=== PATIENT | female | born 1945 | race Caucasian/White ===

== ENCOUNTER 2016-12-28 11:21 | Inpatient (IN) ==
[2016-12-28] MEDS ORDERED: FUROSEMIDE 100 MG/10 ML VIAL IV STA (11:45)
[2016-12-28] MEDS ORDERED: ONDANSETRON 4 MG/2 ML VIAL IM STA (11:45)
[2016-12-28] MEDS ORDERED: ONDANSETRON 4 MG/2 ML VIAL IV STA (11:52)
[2016-12-28] MEDS ORDERED: FUROSEMIDE 40 MG/4 ML VIAL ONE (11:52)
[2016-12-28] MEDS ORDERED: ONDANSETRON 4 MG/2 ML VIAL ONE (11:52)
--- NOTE | 2016-12-28 11:56 | EKG Report ---
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
--- NOTE | 2016-12-28 12:21 | XRay Report ---
Portable chest Date:[12/28/2016] Clinical history: Shortness of breath Comparison: 02/11/2011 Technique: Portable AP sitting chest Findings: The heart remains normal in size with large hiatal hernia. Progressive diffuse parenchymal findings at the lung bases. Degenerative changes are noted. Impression: Large hiatal hernia with progressive atelectasis/infiltration/edema at the lung bases. PROCEDURE INTERPRETED AT [facility] DEPARTMENT OF RADIOLOGY Final Report Signed by: Dr. Mellissa Puente
[2016-12-28 12:23] LABS: Basophils % 0.4 % (0.0-0.8); Eosinophils # 0.2 10*3/uL (0.0-0.87); Hematocrit 41.6 VOL% (35.7-47.0); Hemoglobin 14.6 GM/DL (12.0-16.0); Immature Granulocytes % 0.3 %; Immature Granulocytes Absolute 0.02 #; Lymphocytes # 1.8 10*3/uL (1.4-4.0); Lymphocytes % 26.4 % (21.3-54.2); Mean Corpuscular HGB Conc 35.1 GM/DL (32-36); Mean Corpuscular Hemoglobin 31 PG (27-34); Mean Corpuscular Volume 86.8 FL (87-102); Mean Platelet Volume 10.7 FL (9.6-12.0); Monocytes # 0.6 10*3/uL (0.11-0.8); Monocytes % 9.3 % (1.7-12.7); Neutrophils # 4.1 10*3/uL (1.4-7.4); Neutrophils % 60.6 % (38.7-73.9); Platelet Count 308 T/CUMM (130-400); Red Blood Count 4.79 MC/CUMM (3.8-5.5); White Blood Count 6.8 T/CUMM (4-12)
--- NOTE | 2016-12-28 12:32 | Emergency Department Note ---
IRashida Kasabria, am scribing for, and in the presence of, Diego Hendrix MD 11:53. Simeon Chapman Robert M, MD, personally performed the services described in this documentation, ascribed by Arie Field in my presence, and it is both accurate and complete 232 . Arrival - Arrival Chief Complaint: Shortness of Breath ED Nursing Triage Note: Brought in per EMS from home with c/o shortness of breath onset last pm. +dyspnea on exertion. +productive cough with "foamy white " sputum, gagging and vomiting. Unable to lie flat. Also c/o upper back pain, "from shoulder blade to shoulder blade". Denies injury. Mode of Arrival: Stretcher Limitations: No Limitations Source: Patient Time Seen by Provider: 12/28/16 11:45 - History of Present Illness HPI Narrative: Pt is a 71 y/o white female presenting to the ED with c/o upper back pain from "shoulder blade to shoulder blade", shortness of breath, productive cough with frothy white sputum, and vomiting that onset this morning at 0100. Pt called it a "spell". She did not call EMS until later this morning when the spell ended. She then states the spell began again with vomiting frothy white "bubbles". Pt took two OTC Tylenol. She denies fever, chills, diarrhea, abdominal pain, vision change, MORELAND, dysuria, chest pain. Her PMHx consist of CHF, HTN, and vertigo. Date of Last Menstrual Period: PM Allergies/Adverse Reactions: Allergies Allergy/AdvReac Type Severity Reaction Status Date / Time Iodinated Contrast Media - Allergy Severe ANAPHYLAXIS Verified 12/28/16 14:34 IV Dye codeine Allergy Unknown/Unable Verified 12/28/16 11:32 to obtain iodine Allergy Unknown/Unable Verified 12/28/16 11:32 to obtain Penicillins Allergy Unknown/Unable Verified 12/28/16 11:32 to obtain Home Medications: Home Medications Medication Instructions Recorded Confirmed Type Furosemide Tab [Lasix Tab] 20 mg PO MOWEFR 12/28/16 12/28/16 History Meclizine HCl 25 mg PO TID PRN 12/28/16 12/28/16 History Metoprolol Succinate 25 mg PO BID 12/28/16 12/28/16 History amLODIPine [Norvasc] 5 mg PO QAM 12/28/16 12/28/16 History hydroCHLOROthiazide 25 mg PO DAILY 12/28/16 12/28/16 History [Hydrochlorothiazide] Review of System - Review of System 12 point system: reviewed and no additional remarkable complaints except as stated - Review of System Constitutional: Absent: chills, fever, weakness Eyes: Absent: vision change Head/Ears/Nose/Throat: Absent: nasal drainage Respiratory: Present: cough (frothy sputum ). Absent: wheezing Cardiovascular: Present: dyspnea on exertion. Absent: chest pain, syncope Gastrointestinal: Present: nausea, vomiting. Absent: abdominal pain, diarrhea Genitourinary female: Absent: dysuria Musculoskeletal: Present: upper back pain (pain from right shoulder blade to left shoulder blade ). Absent: arm pain, back pain, neck pain Skin: Absent: rash Neurological: Absent: headache, weakness, numbness, confusion, abnormal gait, vertigo Psychiatric: Absent: anxiety Endocrine: Absent: fatigue Hematological/Lymphatic: Absent: easy bleeding Allergic/Immunologic: Absent: facial swelling Medical,Surgical,& Family Hx - Medical History Cardio: History of: CHF, Hypertension Neurology: History of: Vertigo - Social History Smoking Status: Never smoker Frequency of Alcohol Use: None Type of Drug Use: None Exam Vital Signs: Vital Signs Temperature 96.3 F L 12/28/16 11:21 Pulse Rate 74 12/28/16 12:15 Respiratory Rate 18 12/28/16 12:15 Blood Pressure 120/67 12/28/16 12:15 O2 Sat by Pulse Oximetry 96 12/28/16 12:15 - General General appearance: alert, in no apparent distress, appears intoxicated - Head Head exam: Present: atraumatic, normocephalic, normal inspection - Eye Eye exam: Present: normal appearance, PERRL, EOMI - ENT ENT exam: Present: normal exam, normal oropharynx, mucous membranes moist, TM's normal bilaterally, normal external ear exam - Neck Neck exam: Present: normal inspection, full ROM, trachea midline. Absent: tenderness - Chest Chest inspection: Present: normal inspection, symmetric chest wall rise. Absent : tenderness - Respiratory Respiratory exam: Present: rhonchi (bilaterally to lung field ). Absent: normal lung sounds bilaterally, accessory muscle use, rales, wheezes - Cardiovascular Cardiovascular exam: Present: regular rate, normal rhythm, normal heart sounds - Abdominal Exam Abdominal exam: Present: soft, normal bowel sounds. Absent: distention, tenderness - Extremities Exam Extremities exam: Present: normal inspection, full ROM, normal capillary refill. Absent: tenderness, pedal edema, calf tenderness - Back Exam Back exam: Present: normal inspection, full ROM. Absent: tenderness - Neurological Exam Neurological exam: Present: alert, oriented X3, CN II-XII intact, normal gait, reflexes normal. Absent: motor sensory deficit - Psychiatric Psychiatric exam: Present: normal affect, normal mood - Skin Skin exam: Present: warm, dry, intact, normal color. Absent: rash Course - Reevaluation(s) Reevaluation #1: Patient told me apparently she hasn't had an esophageal stricture in the past. She had been drinking liquids only for the last several days but last night had a solid meal which preceded the onset of symptoms. She is still able to swallow her spit but occasionally coughs up frothy sputum. Time: 16:49 - Consultations Consultation #1: I went to put the patient in the hospital to Dr. Carrington Esquivel. Dr. Vy Mercer manager application. Time: 16:56 Results - Labs CBC & BMP: 12/28/16 12:00 12/28/16 12:00 Lab Results: I have reviewed the patients labs Labs: Lab Results WBC 6.8 T/CUMM (4-12) 12/28/16 12:00 RBC 4.79 MC/CUMM (3.8-5.5) 12/28/16 12:00 Hgb 14.6 GM/DL (12.0-16.0) 12/28/16 12:00 Hct 41.6 VOL% (35.7-47.0) 12/28/16 12:00 MCV 86.8 FL (87-102) L 12/28/16 12:00 MCH 31 PG (27-34) 12/28/16 12:00 MCHC 35.1 GM/DL (32-36) 12/28/16 12:00 RDW 12.0 % (9.3-17.3) 12/28/16 12:00 Plt Count 308 T/CUMM (130-400) 12/28/16 12:00 MPV 10.7 FL (9.6-12.0) 12/28/16 12:00 Neut % (Auto) 60.6 % (38.7-73.9) 12/28/16 12:00 Lymph % (Auto) 26.4 % (21.3-54.2) 12/28/16 12:00 Orange % (Auto) 9.3 % (1.7-12.7) 12/28/16 12:00 Eos % (Auto) 3.0 % (0.00-10.9) 12/28/16 12:00 Baso % (Auto) 0.4 % (0.0-0.8) 12/28/16 12:00 Neut # (Auto) 4.1 10*3/uL (1.4-7.4) 12/28/16 12:00 Lymph # (Auto) 1.8 10*3/uL (1.4-4.0) 12/28/16 12:00 Orange # (Auto) 0.6 10*3/uL (0.11-0.8) 12/28/16 12:00 Eos # (Auto) 0.2 10*3/uL (0.0-0.87) 12/28/16 12:00 Baso # (Auto) 0.0 10*3/uL (0.0-0.2) 12/28/16 12:00 Immature Gran % 0.3 % 12/28/16 12:00 Nucleated RBC % 0.0 /100WBC 12/28/16 12:00 Immature Gran # 0.02 # 12/28/16 12:00 Nucleated RBCs # 0.00 10*3/uL 12/28/16 12:00 INR 1.0 12/28/16 12:00 PT Patient/Control Mix 11.0 SECS 12/28/16 12:00 Sodium 142 MMOL/L (136-145) 12/28/16 12:00 Potassium 3.4 MMOL/L (3.5-5.1) L 12/28/16 12:00 Chloride 104 MMOL/L (98-107) 12/28/16 12:00 Carbon Dioxide 28 MMOL/L (21-32) 12/28/16 12:00 Anion Gap 13.4 MMOL/L (5.0-15.0) 12/28/16 12:00 BUN 16 MG/DL (7-18) 12/28/16 12:00 Creatinine 1.00 MG/DL (0.55-1.02) 12/28/16 12:00 GFR Calculation 73 ML/MIN 12/28/16 12:00 BUN/Creatinine Ratio 16.00 RATIO (6.00-20.00) 12/28/16 12:00 Glucose 97 MG/DL (74-106) 12/28/16 12:00 Calculated Osmolality 283.1 MOS/KG (273-304) 12/28/16 12:00 Calcium 9.0 MG/DL (8.5-10.1) 12/28/16 12:00 Magnesium 2.1 MG/DL (1.8-2.4) 12/28/16 12:00 Total Bilirubin 0.50 MG/DL (0.2-1.0) 12/28/16 12:00 AST 11 U/L (0-37) 12/28/16 12:00 ALT 13 U/L (13-56) 12/28/16 12:00 Alkaline Phosphatase 90 U/L (45-117) 12/28/16 12:00 B-Natriuretic Peptide 52 PG/ML (2-100) 12/28/16 12:00 Total Protein 7.1 G/DL (6.4-8.3) 12/28/16 12:00 Albumin 3.3 G/DL (3.4-5.0) L 12/28/16 12:00 Globulin 3.8 G/DL (2.3-3.5) H 12/28/16 12:00 Albumin/Globulin Ratio 0.8 RATIO (1.1-2.2) L 12/28/16 12:00 - Diagnostic Findings Procedure: Chest x-ray: image reviewed by me (progressive right lower lobe airspace density), X-ray: image reviewed by me (low probability nuclear medicine lung scan) Disposition Clinical Impression: Acute dyspnea, Back pain, probable esophageal dysmotility Case discussed with: patient, patient's family Disposition: Still a Patient Condition: Stable Instructions: Esophageal Stricture (ED) Time of Disposition: 13:18
[2016-12-28 12:53] LABS: Albumin 3.3 G/DL (3.4-5.0); Bilirubin,Total 0.5 MG/DL (0.2-1.0); Magnesium 2.1 MG/DL (1.8-2.4); Osmolality,Calculated 283.1 MOS/KG (273-304); Potassium 3.4 MMOL/L (3.5-5.1); Total Protein 7.1 G/DL (6.4-8.3)
[2016-12-28] MEDS ORDERED: MORPHINE 2 MG/1 ML SYRINGE IV STA (14:29)
[2016-12-28] MEDS ORDERED: MORPHINE 2 MG/1 ML SYRINGE ONE (14:31)
--- NOTE | 2016-12-28 16:42 | Nuclear Medicine Report ---
Exam: NM lung scan vent and per Date: 12/28/2016 2:08 PM Comparison: Chest x-ray 12/28/2016 Indication: Shortness of breath Technique: Patient inhaled 40 mCi technetium 99m DTPA and limited 3 view ventilation lung scan was obtained. Patient injected with 5 mCi technetium 99m MMA and limited 3 view perfusion lung scan obtained. Findings: Diminished ventilation peripherally in both lungs. No unmatched defects are identified. The perfusion defects are less prominent than the ventilation defects. Impression: Limited three-view low probability lung scan. PROCEDURE INTERPRETED AT [facility] DEPARTMENT OF RADIOLOGY Final Report Signed by: Dr. Mellissa Puente
[2016-12-28] MEDS ORDERED: KETOROLAC 30 MG/1 ML VIAL IV PRN (16:57)
[2016-12-28] MEDS ORDERED: ONDANSETRON 4 MG/2 ML VIAL IV PRN (16:57)
[2016-12-28] MEDS ORDERED: SODIUM CHLORIDE 0.9% 1,000 ML IV SCH (17:00)
[2016-12-28] MEDS: DOCUSATE SODIUM 100 MG CAPSULE PO SCH ×2 (21:48→21:50)
[2016-12-29] MEDS: ACETAMINOPHEN 325 MG TABLET PO PRN (00:40)
[2016-12-29] MEDS ORDERED: DEXTROMETHORPHAN ER 6 MG/ML 90 ML/BOTTLE PO PRN (08:57)
[2016-12-29] MEDS ORDERED: BENZONATATE 100 MG CAPSULE PO PRN (08:57)
--- NOTE | 2016-12-29 09:45 | Gastrointestinal Consult Note ---
Assessment and Plan (1) Dysphagia Status: Acute Assessment and plan: 2/6-Several month history of difficulty with some solids with onset of shoulder pain, nausea and vomiting on yesterday with shoulder pain radiating down arm with SOB. Hx of hiatal hernia. No GERD reported. Last EGD 2010. Plan and addendum to follow by Dr Gutierrez. Current Visit: Yes History of Present Illness Chief complaint: Atypical chest pain, dysphagia History of present illness: Ms. Denton is a 71 year old female who presented to the hospital after onset of atypical chest pain. Pt states that she woke up in the middle of the night before last with sudden onset of pain across her shoulders. She states the pain started suddenly, was sharp and stabbing and radiated down her left arm with numbness. She also states she had some epigastric discomfort. She reports that she has had a dry cough the last 5 weeks as well with some frothy sputum. Pt states she had onset of nausea and vomiting with the pain, which she vomited several times the food she had eaten. She is not diabetic. Denies any hematemesis or coffee ground emesis. States that she has done this off and on the last several weeks with episodes of vomiting. She had her gallbladder taken out in 2010. Denies any recent weight loss, fever, chills. Denies any NSAID use. Denies melena or hematochezia. States she had dysphagia to certain solids such as potatoes, rice, and lettuce but denies this with liquids and pills. Denies GERD and does not take anything for this. Pt last endoscopy was in [address] Keen with findings of diverticulosis on her C-scope and hital hernia on EGD. Chest xray shows large hiatal hernia with progressive atelectasis/edema at lung bases. Home Medications Medication Instructions Recorded Confirmed Type Furosemide Tab [Lasix Tab] 20 mg PO MOWEFR 12/28/16 12/28/16 History Meclizine HCl 25 mg PO TID PRN 12/28/16 12/28/16 History Metoprolol Succinate 25 mg PO BID 12/28/16 12/28/16 History amLODIPine [Norvasc] 5 mg PO QAM 12/28/16 12/28/16 History hydroCHLOROthiazide 25 mg PO DAILY 12/28/16 12/28/16 History [Hydrochlorothiazide] Allergies Allergy/AdvReac Type Severity Reaction Status Date / Time Iodinated Contrast Media - Allergy Severe ANAPHYLAXIS Verified 12/28/16 14:34 IV Dye codeine Allergy Unknown/Unable Verified 12/28/16 11:32 to obtain iodine Allergy Unknown/Unable Verified 12/28/16 11:32 to obtain Penicillins Allergy Unknown/Unable Verified 12/28/16 11:32 to obtain Medical,Surgical,& Family Hx - Medical History Cardio: History of: CHF, Hypertension Neurology: History of: Cerebrovascular Accident, Peripheral Neuropathy, Vertigo No history of: Brain Aneurysm, Cerebral Hemorrhage, Cerebral Palsy, Dementia , Migraine, Multiple Sclerosis, Parkinson's Disease, Seizures, TIA, Neurologocal Cancer Endocrine: History of: Dyslipidemia - Surgical History Cardiac Surgeries: Patient Denies: Femoral-Popliteal Bypass Graft, Cardiac Catheterization, Cardiac Surgery, Carotid Endarterectomy, Internal Defibrillator, Vascular Access Devices Neurologic Surgeries: Patient denies: Brain Aneurysm, Cerebral Hemorrhage, Neurologic Surgery HEENT Surgeries: Patient denies: Carotid Endarterectomy Abdominal Surgeries: Patient denies: Splenectomy Reproductive Surgeries: Surgical HX of;: Hysterectomy Patient denies;: Genitourinary Surgery - Family History Family History: Reports;: Family Cancer (brother), Family Heart Disease (mother) Denies;: Family Diabetes, Family Hematology, Family Hypertension, Family Psychiatric Problems, Family Stroke - Social History Smoking Status: Never smoker Frequency of Alcohol Use: None Type of Drug Use: None 12 point system: reviewed and no additional remarkable complaints except as stated - Constitutional Constitutional: Present: as per HPI - EENT Eyes: Present: as per HPI Ears: Present: as per HPI Nose, mouth and throat: Present: as per HPI - Cardiovascular Cardiovascular: Present: as per HPI - Respiratory Respiratory: Present: as per HPI, cough - Gastrointestinal Gastrointestinal: Present: as per HPI, dysphagia, nausea, vomiting - Genitourinary Genitourinary: Present: as per HPI - Musculoskeletal Musculoskeletal: Present: as per HPI - Neurological Neurological: Present: as per HPI - Psychiatric Psychiatric: Present: as per HPI - Endocrine Endocrine: Present: as per HPI - Hematologic/Lymphatic Hematologic/Lymphatic: Present: as per HPI Exam - Constitutional Vitals: Period Temp Pulse Resp BP Sys/Benitez Pulse Ox Last 24 Hr 97.5 F-98.5 F 55-79 17-20 94-117/51-83 89-96 General appearance: normal weight, no acute distress - Head Head exam: Present: normal inspection, normocephalic - Eye Eye exam: Present: other (lids and conjunctiva unremarkable). Absent: scleral icterus - ENT ENT exam: Present: normal exam, normal oropharynx - Neck Neck exam: Present: normal inspection - Respiratory Respiratory exam: Present: clear to auscultation bilaterally. Absent: rales, rhonchi, wheezes - Cardiovascular Cardiovascular exam: Present: regular rate and rhythm. Absent: diastolic murmur , JVD, systolic murmur - GI/Abdominal GI/Abdominal exam: Present: normal bowel sounds, soft. Absent: mass, organomegaly, tenderness - Extremities Exam Extremities exam: Present: normal inspection, full ROM - Back Exam Back exam: Present: normal inspection - Neurological Exam Neurological exam: Present: alert, oriented X3 - Psychiatric Psychiatric exam: Present: normal affect, normal mood - Skin Skin exam: Present: normal color, warm, dry Results - Labs CBC & BMP: 12/28/16 12:00 12/28/16 12:00 Lab Results: I have reviewed the past 24 hour labs Specialty Discharge - Follow Up or Referrals
[2016-12-29] MEDS: DOCUSATE SODIUM 100 MG CAPSULE PO SCH ×2 (10:04→21:58)
[2016-12-29] MEDS: PANTOPRAZOLE 40 MG TABLET PO SCH (10:15)
[2016-12-29] MEDS ORDERED: MECLIZINE 25 MG TABLET PO PRN (12:36)
--- NOTE | 2016-12-29 12:48 | Family Practice History&Phys ---
Assessment and Plan (1) Acute dyspnea Status: Acute Assessment and plan: 12/29/2016 we'll going to continue her own current medication regimen. Oxygen as needed Current Visit: Yes (2) Back pain Status: Acute Assessment and plan: 12/29/2016. This may just be muscle spasms but is associated with vomiting and also Current Visit: Yes (3) Dysphagia Status: Acute Assessment and plan: 12/29/2016 I'm going get GI services to see her. This could be reflux Current Visit: Yes History of Present Illness Chief complaint: shortness of breath, shoulder pain, atypical chest pain History of present illness: Ms. Denton is a 71 year old female Well-known to me and my clinic. Has a history of congestive heart failure, hypertension, cerebrovascular accident (cerebral hemorrhage). Came in to the hospital yesterday and presented with some atypical chest pain. States that it woke her up about 1 o'clock in the morning and actually had right suprascapular pain that went across her back. She also has some shortness of breath and was coughing up some "thick white sputum". Was able to go back to bed and again in the morning, about 7 or 8 o'clock had the same symptoms. She had a little associated shortness of breath. States that Thursday she was feeling fairly well until that afternoon and she went to bed for about 3 hours "which I never do". Also admits that she had during this episode some left arm numbness and tingling pain with generalized episodic difficulty discomfort in her chest and upper back. Admits that she's been coughing for about the last 6 weeks and in fact have seen her my clinic for this, at least once. She denies any hematemesis or coffee-ground emesis nor has she had any blood in her stools or black stools. No recent weight loss or fever or chills. Historically he has had a total hysterectomy and a cholecystectomy. At this time she is stable hemodynamically and denies any bakari chest pain or shortness of breath. She is not having any problems with voiding or any other constitutional symptoms at this time. She is very alert and oriented answers all questions appropriately and is cognitively stable. Her symptoms are atypical for cardiac but she does have this frothy white sputum. Unsure whether this is a GI reflux or perhaps some congestive heart failure. Her chest x-ray does show significant hiatal hernia per radiology and I'm going to go and do a CT scan of her chest at this time. We'll get pulmonary as well as GI involved. Again I do not think this is cardiac Home Medications Medication Instructions Recorded Confirmed Type Furosemide Tab [Lasix Tab] 20 mg PO MOWEFR 12/28/16 12/28/16 History Meclizine HCl 25 mg PO TID PRN 12/28/16 12/28/16 History Metoprolol Succinate 25 mg PO BID 12/28/16 12/28/16 History amLODIPine [Norvasc] 5 mg PO QAM 12/28/16 12/28/16 History hydroCHLOROthiazide 25 mg PO DAILY 12/28/16 12/28/16 History [Hydrochlorothiazide] Allergies Allergy/AdvReac Type Severity Reaction Status Date / Time Iodinated Contrast Media - Allergy Severe ANAPHYLAXIS Verified 12/28/16 14:34 IV Dye codeine Allergy Unknown/Unable Verified 12/28/16 11:32 to obtain iodine Allergy Unknown/Unable Verified 12/28/16 11:32 to obtain Penicillins Allergy Unknown/Unable Verified 12/28/16 11:32 to obtain 12 point system: reviewed and no additional remarkable complaints except as stated (as mentioned in the history of present illness and physical) Medical,Surgical,& Family Hx - Medical History Cardio: History of: CHF, Hypertension Neurology: History of: Cerebrovascular Accident, Peripheral Neuropathy, Vertigo No history of: Brain Aneurysm, Cerebral Hemorrhage, Cerebral Palsy, Dementia , Migraine, Multiple Sclerosis, Parkinson's Disease, Seizures, TIA, Neurologocal Cancer Endocrine: History of: Dyslipidemia - Surgical History Cardiac Surgeries: Patient Denies: Femoral-Popliteal Bypass Graft, Cardiac Catheterization, Cardiac Surgery, Carotid Endarterectomy, Internal Defibrillator, Vascular Access Devices Neurologic Surgeries: Patient denies: Brain Aneurysm, Cerebral Hemorrhage, Neurologic Surgery HEENT Surgeries: Patient denies: Carotid Endarterectomy Abdominal Surgeries: Patient denies: Splenectomy Reproductive Surgeries: Surgical HX of;: Hysterectomy Patient denies;: Genitourinary Surgery - Family History Family History: Reports;: Family Cancer (brother), Family Heart Disease (mother) Denies;: Family Diabetes, Family Hematology, Family Hypertension, Family Psychiatric Problems, Family Stroke - Social History Smoking Status: Never smoker Frequency of Alcohol Use: None Type of Drug Use: None Exam - Constitutional Vitals: Period Temp Pulse Resp BP Sys/Benitez Pulse Ox Last 24 Hr 97.5 F-98.5 F 55-79 17-22 94-117/51-83 89-96 Exam: Generally well-developed female was alert and oriented very cognitive answers all questions and is well-known to me. HEENT pupils are equally reactive to light extraocular movements are intact neck is supple trachea midline oropharynx is negative Cardiovascular rate is regular no gallop or rub, there is one out of 6 systolic ejection murmur Lungs few basilar rales but no specific rhonchi are heard. Chest x-ray does reveal some infiltration in the right lung in particular, this may be atelectasis or possibly related to hiatal hernia which is mentioned Abdomen soft nondistended positive bowel sounds no abdominal discomfort Extremities no clubbing cyanosis or edema Neurologically fully intact no cranial nerve deficits no cerebellar findings or motor sensory deficits peripherally Results - Labs CBC & BMP: 12/28/16 12:00 12/28/16 12:00
[2016-12-29] MEDS: FUROSEMIDE 20 MG TABLET PO SCH (13:18)
[2016-12-29] MEDS: hydroCHLOROthiazide 25 MG TABLET PO SCH (13:18)
--- NOTE | 2016-12-29 13:47 | CT Report ---
Exam: CT chest wo con Date: 12/29/2016 8:57 AM Comparison: Chest x-ray 12/28/2016 Indication: Cough, shortness of breath, chest pain Technique: Sequential axial scans of the chest were obtained without contrast. Coronal and sagittal 2-D reconstructions were obtained. Total DLP: 399.60 Findings: The heart is borderline size with arterial calcifications. The ascending aorta measures 34 mm in diameter with limited evaluation of vasculature without contrast. No significant chest lymphadenopathy is identified with 150 mm hiatal hernia. Prior cholecystectomy. Degenerative changes are noted. Probable chronic scarring in the lungs especially in the upper lobes and at the lung bases adjacent to the hiatal hernia. Minimal groundglass opacities with diffuse parenchymal findings especially in the lower lobes. Minimal pleural calcification at the left lung base. 4.5 mm noncalcified pulmonary nodule in the inferior right upper lobe. The lungs are overexpanded with no pleural effusion. Impression: COPD with atelectasis/scarring especially in the upper lobes and at the lung bases. Possible additional minimal infiltration in the lower lobes. Minimal pleural calcification at the left lung base which can be seen with scarring/asbestosis. 4.5 mm indeterminate noncalcified pulmonary nodule in the right upper lobe. Short-term followup CT chest may be helpful for further evaluation of this finding depending upon the patient's risk factors. 150 mm hiatal hernia with prior cholecystectomy. PROCEDURE INTERPRETED AT [facility] DEPARTMENT OF RADIOLOGY Final Report Signed by: Dr. Mellissa Puente
[2016-12-29] MEDS: POTASSIUM CHLORIDE INJ 10 MEQ in SODIUM CHLORIDE 0.9% 1,000 ML IV SCH (14:18)
--- NOTE | 2016-12-29 17:32 | Pulmonology Consult Note ---
Assessment and Plan (1) Bronchitis Status: Acute Assessment and plan: The patient has had a persistent cough and bronchitis for for [address] does not look very bad and I don't think she has a lot of lung disease. We'll try some bronchodilators and a little bit of steroids. Current Visit: Yes (2) Hiatal hernia Status: Acute Assessment and plan: She does have a large hiatal hernia and will continue with antireflux measures. Current Visit: Yes (3) Hypertension Status: Acute Assessment and plan: She has had a history of hypertension and heart failure but she is doing okay at present. Current Visit: Yes (4) Acute dyspnea Status: Acute Assessment and plan: She mainly had chest pain and shortness of breath is not too bad. Current Visit: Yes (5) Back pain Status: Acute Assessment and plan: She comes in with chest and back pain and is better now. I don't think she's having any signs of ischemia. Current Visit: Yes (6) Dysphagia Status: Acute Assessment and plan: She apparently is having some trouble swallowing now and may need an EGD. Current Visit: Yes History of Present Illness Chief complaint: persistent cough History of present illness: Ms. Denton is a 71 year old female that has a history of having hypertension and possibly some mild heart failure in the past. She states that about for 5 weeks now she's been having a persistent cough with little sputum production. She's been having very mild shortness of breath. She came in over the weekend because of severe chest pain is being monitored. Pain was more in her back and radiating down her left arm. She is feeling a little better now. She says she' s never really had lung problems before. She is a nonsmoker and no history of clear-cut asthma. She does have a very large hiatal hernia. She has been having some trouble swallowing lately. She otherwise has been feeling reasonably well. Home Medications Medication Instructions Recorded Confirmed Type Furosemide Tab [Lasix Tab] 20 mg PO MOWEFR 12/28/16 12/28/16 History Meclizine HCl 25 mg PO TID PRN 12/28/16 12/28/16 History Metoprolol Succinate 25 mg PO BID 12/28/16 12/28/16 History amLODIPine [Norvasc] 5 mg PO QAM 12/28/16 12/28/16 History hydroCHLOROthiazide 25 mg PO DAILY 12/28/16 12/28/16 History [Hydrochlorothiazide] Allergies Allergy/AdvReac Type Severity Reaction Status Date / Time Iodinated Contrast Media - Allergy Severe ANAPHYLAXIS Verified 12/28/16 14:34 IV Dye codeine Allergy Unknown/Unable Verified 12/28/16 11:32 to obtain iodine Allergy Unknown/Unable Verified 12/28/16 11:32 to obtain Penicillins Allergy Unknown/Unable Verified 12/28/16 11:32 to obtain - Constitutional Constitutional: Absent: chills, fatigue, fever(s), headache(s), weight gain, weight loss - EENT Eyes: Absent: loss of vision Ears: Absent: decreased hearing Nose, mouth and throat: Present: dysphagia. Absent: hoarseness, sinus pressure - Cardiovascular Cardiovascular: Present: orthopnea. Absent: chest pain at rest, dyspnea on exertion, edema, PND - Respiratory Respiratory: Present: cough, wheezing, change in phlegm color. Absent: hemoptysis - Gastrointestinal Gastrointestinal: Present: dysphagia, heartburn. Absent: abdominal pain, change in bowel habits, nausea, vomiting - Genitourinary Genitourinary: Absent: dysuria, hematuria, urinary frequency - Musculoskeletal Musculoskeletal: Absent: arthralgias, muscle weakness - Neurological Neurological: Absent: abnormal speech, focal weakness, paresthesias - Psychiatric Psychiatric: Absent: depression Exam (Pulmonay) H&P - Constitutional Vitals: Period Temp Pulse Resp BP Sys/Benitez Pulse Ox Last 24 Hr 97.0 F-98.5 F 55-72 17-22 94-117/51-83 89-96 General appearance: no acute distress, over weight, other (she does look comfortable sitting up in bed.) - Head Head exam: Present: normal inspection, normocephalic - Eye Eye exam: Present: EOMI. Absent: scleral icterus - ENT ENT exam: Present: normal exam - Neck Neck exam: Present: normal inspection. Absent: lymphadenopathy, thyromegaly - Respiratory Respiratory exam: Present: rales, other (she has fair breath sounds with just some minimal crackles in the bases.). Absent: accessory muscle use - Cardiovascular Cardiovascular exam: Present: regular rate and rhythm. Absent: gallop, systolic murmur - GI/Abdominal GI/Abdominal exam: Present: normal bowel sounds, soft. Absent: organomegaly, tenderness - Extremities Exam Extremities exam: Absent: calf tenderness, edema - Back Exam Back exam: Present: normal inspection - Neurological Exam Neurological exam: Present: alert, oriented X3, CN II-XII intact - Psychiatric Psychiatric exam: Present: normal affect - Skin Skin exam: Present: warm Medical,Surgical,& Family Hx - Medical History Cardio: History of: CHF, Hypertension Neurology: History of: Cerebrovascular Accident, Peripheral Neuropathy, Vertigo No history of: Brain Aneurysm, Cerebral Hemorrhage, Cerebral Palsy, Dementia , Migraine, Multiple Sclerosis, Parkinson's Disease, Seizures, TIA, Neurologocal Cancer Endocrine: History of: Dyslipidemia Gastrointestinal: History of: GERD - Surgical History Cardiac Surgeries: Patient Denies: Femoral-Popliteal Bypass Graft, Cardiac Catheterization, Cardiac Surgery, Carotid Endarterectomy, Internal Defibrillator, Vascular Access Devices Neurologic Surgeries: Patient denies: Brain Aneurysm, Cerebral Hemorrhage, Neurologic Surgery HEENT Surgeries: Patient denies: Carotid Endarterectomy Abdominal Surgeries: Patient denies: Splenectomy Reproductive Surgeries: Surgical HX of;: Hysterectomy Patient denies;: Genitourinary Surgery - Family History Family History: Reports;: Family Cancer (brother), Family Heart Disease (mother) Denies;: Family Diabetes, Family Hematology, Family Hypertension, Family Psychiatric Problems, Family Stroke - Social History Smoking Status: Never smoker Frequency of Alcohol Use: None Type of Drug Use: None Results - Labs CBC & BMP: 12/28/16 12:00 12/28/16 12:00 - Diagnostic Findings Procedure: Chest x-ray: image reviewed by me, report reviewed by me (chest x- ray shows large hiatal hernia and there is some slight increased markings toward the bases.), CT - chest: image reviewed by me, report reviewed by me (CT is not very impressive. She has some slight increased patchy infiltrates that are minimal. I don't see any definite consolidation or heart failure.) Specialty Discharge - Follow Up or Referrals
[2016-12-29] MEDS ORDERED: methylPREDNISolone ACETATE 80 MG/1 ML VIAL IM ONE (17:40)
[2016-12-29 19:34] LABS: Troponin I Only < 0.015 NG/ML (0.00-0.045)
[2016-12-29] MEDS: ALBUTEROL 1.25 MG/3 ML NEB RESP TX SCH (21:02)
[2016-12-29] MEDS: METOPROLOL SUCCINATE XL 25 MG TABLET PO SCH (21:56)
[2016-12-30] MEDS: ALBUTEROL 1.25 MG/3 ML NEB RESP TX SCH ×4 (00:54→19:29)
[2016-12-30] MEDS: ACETAMINOPHEN 325 MG TABLET PO PRN (01:51)
--- NOTE | 2016-12-30 07:19 | Pulmonology Progress Note ---
Pulmonary - PN: Subj Interval history: Patient is a 71-year-old white lady that comes in with a cough and bronchitis. She's not that short of breath but she does cough and wheeze good bit. She says she didn't sleep very well last night. She is not coughing up any purulent secretions. She does have a large hiatal hernia. She looks reasonably comfortable at present. Exam (Progress Note) - Constitutional Vitals: Period Temp Pulse Resp BP Sys/Benitez Pulse Ox Last 24 Hr 97.0 F-98.2 F 61-88 16-22 86-114/45-64 87-96 Exam: General appearance: no acute distress, over weight, other (she does look comfortable lying in bed.) - Head Head exam: Present: normal inspection, normocephalic - Eye Eye exam: Present: EOMI. Absent: scleral icterus - ENT ENT exam: Present: normal exam - Neck Neck exam: Present: normal inspection. Absent: lymphadenopathy, thyromegaly - Respiratory Respiratory exam: Present: She has fairly good breath sounds bilaterally with some minimal rhonchi. I do not hear any definite consolidation. - Cardiovascular Cardiovascular exam: Present: regular rate and rhythm. Absent: gallop, systolic murmur - GI/Abdominal GI/Abdominal exam: Present: normal bowel sounds, soft. Absent: organomegaly, tenderness - Extremities Exam Extremities exam: Absent: calf tenderness, edema - Back Exam Back exam: Present: normal inspection - Neurological Exam Neurological exam: Present: alert, oriented X3, CN II-XII intact - Psychiatric Psychiatric exam: Present: normal affect - Skin Skin exam: Present: warm Results - Labs CBC & BMP: 12/28/16 12:00 12/28/16 12:00 Assessment and Plan (1) Bronchitis Status: Acute Assessment and plan: The patient has had a persistent cough and bronchitis for for [address] does not look very bad and I don't think she has a lot of lung disease. We'll try some bronchodilators and a little bit of steroids. She is still coughing and we will bump up her steroids a little. Current Visit: Yes (2) Hiatal hernia Status: Acute Assessment and plan: She does have a large hiatal hernia and will continue with antireflux measures. Current Visit: Yes (3) Hypertension Status: Acute Assessment and plan: She has had a history of hypertension and heart failure but she is doing okay at present. Current Visit: Yes (4) Acute dyspnea Status: Acute Assessment and plan: She mainly had chest pain and shortness of breath is not too bad. She looks like she is breathing comfortably at present. Current Visit: Yes (5) Back pain Status: Acute Assessment and plan: She comes in with chest and back pain and is better now. I don't think she's having any signs of ischemia. Current Visit: Yes (6) Dysphagia Status: Acute Assessment and plan: She apparently is having some trouble swallowing now and may need an EGD. Current Visit: Yes Specialty Discharge - Follow Up or Referrals
[2016-12-30] MEDS: methylPREDNISolone SOD SUC 40 MG/1 ML VIAL IV SCH ×3 (09:04→23:00)
[2016-12-30] MEDS: METOPROLOL SUCCINATE XL 25 MG TABLET PO SCH ×3 (09:51→21:49)
[2016-12-30] MEDS: PANTOPRAZOLE 40 MG TABLET PO SCH (09:51)
[2016-12-30] MEDS: hydroCHLOROthiazide 25 MG TABLET PO SCH (10:04)
[2016-12-30] MEDS: DOCUSATE SODIUM 100 MG CAPSULE PO SCH ×2 (10:05→21:44)
--- NOTE | 2016-12-30 10:12 | Gastrointestinal Progress Note ---
Assessment and Plan (1) Dysphagia Status: Acute Assessment and plan: 12/30-No changes at present, tolerating full liquid diet. Continue to monitor at this time and plan for EGD when resp status improves. Plan and addendum to follow by Dr Gutierrez. 12/29-Several month history of difficulty with some solids with onset of shoulder pain, nausea and vomiting on yesterday with shoulder pain radiating down arm with SOB. Hx of hiatal hernia. No GERD reported. Last EGD 2010. Plan and addendum to follow by Dr Gutierrez. Current Visit: Yes Gastroenterology - PN: Subj Interval history: CC: Dysphagia Pt is awake, alert, sitting up in bed. States she is feeling some better today. She has had a continuous cough all night since she started breathing treatments. She is tolerating full liquids at present and swallowing these fairly well. Abdomen is soft, nontender. ROS: Denies SOB or chest pain Exam (Progress Note) - Constitutional Vitals: Period Temp Pulse Resp BP Sys/Benitez Pulse Ox Last 24 Hr 97.0 F-98.2 F 57-88 16-22 86-114/45-64 87-98 - Other Additional findings: General appearance: normal weight, no acute distress - Head Head exam: Present: normal inspection, normocephalic - Eye Eye exam: Present: other (lids and conjunctiva unremarkable). Absent: scleral icterus - ENT ENT exam: Present: normal exam, normal oropharynx - Neck Neck exam: Present: normal inspection - Respiratory Respiratory exam: Present: clear to auscultation bilaterally. Absent: rales, rhonchi, wheezes - Cardiovascular Cardiovascular exam: Present: regular rate and rhythm. Absent: diastolic murmur , JVD, systolic murmur - GI/Abdominal GI/Abdominal exam: Present: normal bowel sounds, soft. Absent: mass, organomegaly, tenderness - Extremities Exam Extremities exam: Present: normal inspection, full ROM - Back Exam Back exam: Present: normal inspection - Neurological Exam Neurological exam: Present: alert, oriented X3 - Psychiatric Psychiatric exam: Present: normal affect, normal mood - Skin Skin exam: Present: normal color, warm, dry Results - Labs CBC & BMP: 12/28/16 12:00 12/28/16 12:00 Lab Results: I have reviewed the past 24 hour labs Specialty Discharge - Follow Up or Referrals
[2016-12-30] MEDS: POTASSIUM CHLORIDE INJ 10 MEQ in SODIUM CHLORIDE 0.9% 1,000 ML IV SCH (12:16)
[2016-12-31] MEDS: ALBUTEROL 1.25 MG/3 ML NEB RESP TX SCH ×4 (00:24→19:26)
[2016-12-31 04:30] LABS: Hematocrit 39.6 VOL% (35.7-47.0); Hemoglobin 13.2 GM/DL (12.0-16.0); Immature Granulocytes % 0.8 %; Immature Granulocytes Absolute 0.07 #; Lymphocytes # 0.8 10*3/uL (1.4-4.0); Lymphocytes % 8.5 % (21.3-54.2); Mean Corpuscular HGB Conc 33.3 GM/DL (32-36); Mean Corpuscular Hemoglobin 29 PG (27-34); Mean Corpuscular Volume 88.2 FL (87-102); Mean Platelet Volume 10.9 FL (9.6-12.0); Monocytes # 0.2 10*3/uL (0.11-0.8); Monocytes % 1.8 % (1.7-12.7); Neutrophils # 8.2 10*3/uL (1.4-7.4); Neutrophils % 88.9 % (38.7-73.9); Platelet Count 254 T/CUMM (130-400); Red Blood Count 4.49 MC/CUMM (3.8-5.5); Red Cell Distribution Width 11.9 % (9.3-17.3); White Blood Count 9.2 T/CUMM (4-12)
[2016-12-31 04:59] LABS: Calcium 9.2 MG/DL (8.5-10.1); Magnesium 2.2 MG/DL (1.8-2.4); Osmolality,Calculated 288.8 MOS/KG (273-304); Potassium 3.5 MMOL/L (3.5-5.1)
--- NOTE | 2016-12-31 07:40 | Pulmonology Progress Note ---
Pulmonary - PN: Subj Interval history: Patient is a 71-year-old white lady that comes in with a cough and bronchitis. She says she is not really having much shortness of breath but she continues to have a harsh cough despite getting steroids and bronchodilators. She looks reasonably comfortable and can have an EGD today. She actually may need a bronchoscope to check her airways. She doesn't seem to be getting any better with treatment. Exam (Progress Note) - Constitutional Vitals: Period Temp Pulse Resp BP Sys/Benitez Pulse Ox Last 24 Hr 96.4 F-98.6 F 57-87 18-22 87-101/45-55 90-98 Exam: General appearance: no acute distress, over weight, other (she does look comfortable lying in bed. She doesn't seem to be having any distress.) - Head Head exam: Present: normal inspection, normocephalic - Eye Eye exam: Present: EOMI. Absent: scleral icterus - ENT ENT exam: Present: normal exam - Neck Neck exam: Present: normal inspection. Absent: lymphadenopathy, thyromegaly - Respiratory Respiratory exam: Present: She has fairly good breath sounds bilaterally and her lungs sound reasonably clear. I do not any wheezing today. She has very minimal crackles in the bases. - Cardiovascular Cardiovascular exam: Present: regular rate and rhythm. Absent: gallop, systolic murmur - GI/Abdominal GI/Abdominal exam: Present: normal bowel sounds, soft. Absent: organomegaly, tenderness - Extremities Exam Extremities exam: Absent: calf tenderness, edema - Back Exam Back exam: Present: normal inspection - Neurological Exam Neurological exam: Present: alert, oriented X3, CN II-XII intact - Psychiatric Psychiatric exam: Present: normal affect - Skin Skin exam: Present: warm Results - Labs CBC & BMP: 12/31/16 03:50 12/31/16 03:50 Assessment and Plan (1) Bronchitis Status: Acute Assessment and plan: The patient has had a persistent cough and bronchitis for for [address] does not look very bad and I don't think she has a lot of lung disease. We'll try some bronchodilators and a little bit of steroids. She is still coughing and may need a bronchoscopy to check her airways. She will probably get an EGD today. Current Visit: Yes (2) Hiatal hernia Status: Acute Assessment and plan: She does have a large hiatal hernia and will continue with antireflux measures. She will get an EGD today. Current Visit: Yes (3) Hypertension Status: Acute Assessment and plan: She has had a history of hypertension and heart failure but she is doing okay at present. Current Visit: Yes (4) Acute dyspnea Status: Acute Assessment and plan: She mainly had chest pain and shortness of breath is not too bad. Her lungs sound okay and she is breathing comfortably. Current Visit: Yes (5) Back pain Status: Acute Assessment and plan: She comes in with chest and back pain and is better now. I don't think she's having any signs of ischemia. Current Visit: Yes (6) Dysphagia Status: Acute Assessment and plan: She apparently is having some trouble swallowing now and GI is evaluating. Current Visit: Yes Specialty Discharge - Follow Up or Referrals
[2016-12-31] MEDS: methylPREDNISolone SOD SUC 40 MG/1 ML VIAL IV SCH ×2 (09:17→15:43)
[2016-12-31] MEDS: DOCUSATE SODIUM 100 MG CAPSULE PO SCH ×2 (09:22→21:01)
[2016-12-31] MEDS: PANTOPRAZOLE 40 MG TABLET PO SCH (09:22)
[2016-12-31] MEDS: METOPROLOL SUCCINATE XL 25 MG TABLET PO SCH ×2 (09:22→21:03)
[2016-12-31] MEDS: FUROSEMIDE 20 MG TABLET PO SCH (12:38)
[2016-12-31] MEDS ORDERED: LIDOCAINE 2% 5 ML VIAL ONE (13:02)
[2016-12-31] MEDS ORDERED: PROPOFOL 200 MG/20 ML VIAL IV ONE (13:02)
--- NOTE | 2016-12-31 13:08 | History and Physical Update ---
History and Physical Update - Physical Exam Mental Status: alert and oriented Heart: regular rate and rhythm Lung: clear to auscultation Abdomen: within normal limits Vitals: within normal limits History and Physical Changes: 71-year-old female complains of recent dysphagia to solids. Her weight is stable. She has had previous GERD related esophageal strictures dilated in the past.
--- NOTE | 2016-12-31 13:20 | Operative Note ---
Date of procedure: 12/31/16 Pre-op diagnosis: Dysphagia Procedure: Procedure: Esophagogastroduodenoscopy with savory dilation esophagus over wire Brief clinical abstract: Patient is 71-year-old female with history of GERD and previous esophageal stricture formation. She returns with complaint of increasing dysphagia to solids. She is also admitted with bronchitis and bronchospasm. Indication for procedure: Dysphagia Endoscopic findings:[After informed consent was obtained, the patient was placed in the left lateral decubitus position. The gastroscope was inserted in the upper esophagus under direct vision with no resistance encountered. Esophageal mucosa appeared normal to the squamocolumnar junction. There was a mildly obstructive fibrous appearing stricture at that level consistent with reflux etiology. The endoscope was advanced in the stomach which was carefully examined including retroflexed view of the cardia and fundus. The orientation of the stomach was altered with antrum appearing to exit back caudally adjacent to the GE junction with a large appearing hernia and it is felt she could have paraesophageal hernia. Spring-tipped guidewire was advanced into the mid to distal stomach under endoscopic visualization with the endoscope then removed. Savory dilator size 17 mm was advanced over the wire beyond the level of the stricture with mild resistance encountered. The dilator and guidewire were removed. She had no chest pain afterwards and no blood was noted on the dilator. She appeared to tolerate the procedure well. Impression: #1 distal esophageal stricture secondary to GERD-status post savory dilation #2 large hiatal hernia/possible paraesophageal hernia Recommendations: Would recommend upper GI series at some point. Continue PPI therapy. Anesthesia: MAC Surgeon / Physician: Herve Gutierrez Estimated blood loss: none Specimens: none sent Condition: stable Disposition: post procedure unit Results - Labs CBC & BMP: 12/31/16 03:50 12/31/16 03:50 Discharge Plan - Discharge Medications No Action amLODIPine [Norvasc] 5 mg PO QAM Metoprolol Succinate 25 mg PO BID Meclizine HCl 25 mg PO TID PRN PRN Reason: Dizziness Furosemide Tab [Lasix Tab] 20 mg PO MOWEFR hydroCHLOROthiazide [Hydrochlorothiazide] 25 mg PO DAILY - Follow Up or Referral - Forms/Instructions Instructions: Esophageal Stricture (ED)
--- NOTE | 2016-12-31 13:22 | Anesthesia ---
Anesthesia Post OP - Post Ansesthetic Evaluation Patient seen in post op: Yes Resp: within normal limits CV: within normal limits Mental: within normal limits Temp: within normal limits [id number]: within normal limits Nausea and Vomiting: within normal limits Pain: within normal limits
--- NOTE | 2016-12-31 13:26 | Family Practice Progress Note ---
Family Practice - PN: Subj Interval history: Patient seen this morning. She is alert and no distress at present. Still has a proximal deep cough and only shortness of breath associated with this. She is denying any bakari chest pain present. We are going to try to scope her in the morning (E scope). We'll discuss with pulmonary aren't next recommended steps Exam (Progress Note) - Constitutional Vitals: Period Temp Pulse Resp BP Sys/Benitez Pulse Ox Last 24 Hr 96.5 F-98.6 F 68-87 15-22 87-103/45-55 90-99 Exam: Physical exam is grossly unchanged. HEENT extraocular movements intact neck is supple Cardiovascular rate is regular Lungs have a few areas wheezing but otherwise clear no rales or rhonchi Abdomen soft nondistended Results - Labs CBC & BMP: 12/31/16 03:50 12/31/16 03:50 Assessment and Plan (1) Acute dyspnea Status: Chronic Assessment and plan: 12/29/2016 we'll going to continue her own current medication regimen. Oxygen as needed Current Visit: Yes (2) Back pain Status: Resolved Assessment and plan: 12/29/2016. This may just be muscle spasms but is associated with vomiting and also Current Visit: Yes (3) Dysphagia Status: Acute Assessment and plan: 12/29/2016 I'm going get GI services to see her. This could be reflux O2 717 we are going to do an E scope him tomorrow if GI is okay from a pulmonary standpoint Current Visit: Yes Specialty Discharge - Follow Up or Referrals
--- NOTE | 2016-12-31 13:29 | Family Practice Progress Note ---
Family Practice - PN: Subj Interval history: Patient seen this morning. No respiratory distress at present. She again continues to have a severe paroxysmal heavy cough. We have used multiple antitussives which do not seem to be helping a lot. We'll going get a bronchoscopy done tomorrow if patient tolerates procedure well today. Is not requiring oxygen at this time however. She does have a little posterior chest wall pain due to the cough Exam (Progress Note) - Constitutional Vitals: Period Temp Pulse Resp BP Sys/Benitez Pulse Ox Last 24 Hr 96.5 F-98.6 F 68-87 15-22 87-103/45-55 90-99 Exam: Physical exam is unchanged today. She does continue still have the bronchospasm. Lungs some wheezing with deep breaths Extremities no clubbing cyanosis or edema Results - Labs CBC & BMP: 12/31/16 03:50 12/31/16 03:50 Assessment and Plan (1) Acute dyspnea Status: Chronic Assessment and plan: 12/29/2016 we'll going to continue her own current medication regimen. Oxygen as needed Current Visit: Yes (2) Back pain Status: Resolved Assessment and plan: 12/29/2016. This may just be muscle spasms but is associated with vomiting and also Current Visit: Yes (3) Dysphagia Status: Acute Assessment and plan: 12/29/2016 I'm going get GI services to see her. This could be reflux O2 717 we are going to do an E scope him tomorrow if GI is okay from a pulmonary standpoint Current Visit: Yes Specialty Discharge - Follow Up or Referrals
[2017-01-01] MEDS: methylPREDNISolone SOD SUC 40 MG/1 ML VIAL IV SCH ×3 (00:28→15:54)
[2017-01-01] MEDS: ALBUTEROL 1.25 MG/3 ML NEB RESP TX SCH ×4 (00:36→20:05)
[2017-01-01] MEDS ORDERED: PROMETHAZINE 25 MG/1 ML VIAL IM ONE (07:30)
[2017-01-01] MEDS ORDERED: MEPERIDINE 50 MG/1 ML VIAL IM ONE (07:30)
[2017-01-01] MEDS ORDERED: GLYCOPYRROLATE 0.4 MG/2 ML VIAL IM ONE (07:30)
[2017-01-01] MEDS ORDERED: MIDAZOLAM 2 MG/2 ML VIAL ONE (07:34)
[2017-01-01] MEDS ORDERED: LIDOCAINE 2% VISCOUS 100 ML BOTTLE SWISH/SPIT ONE (08:00)
[2017-01-01] MEDS ORDERED: MIDAZOLAM 2 MG/2 ML VIAL IV ONE (08:00)
[2017-01-01] MEDS ORDERED: LIDOCAINE 1% 20 ML VIAL MISC INJ ONE (08:00)
[2017-01-01] MEDS ORDERED: LIDOCAINE 4% TOP SOLN 50 ML BOTTLE RESP TX ONE (08:00)
--- NOTE | 2017-01-01 08:36 | Pulmonology Progress Note ---
Pulmonary - PN: Subj Interval history: Patient is a 71-year-old white lady that comes in with a cough and bronchitis. She says she is not really having much shortness of breath but she continues to have a harsh cough despite getting steroids and bronchodilators. She had an EGD yesterday and does have a very abnormal esophagus. She says she still regurgitated some food last night. She doesn't think her cough is a lot better. We will proceed with a bronchoscope today. Exam (Progress Note) - Constitutional Vitals: Period Temp Pulse Resp BP Sys/Benitez Pulse Ox Last 24 Hr 96.5 F-98.2 F 64-112 12-25 89-141/50-77 91-99 Exam: General appearance: no acute distress, over weight, other (she does look comfortable lying in bed. She doesn't seem to be having any distress.) - Head Head exam: Present: normal inspection, normocephalic - Eye Eye exam: Present: EOMI. Absent: scleral icterus - ENT ENT exam: Present: normal exam - Neck Neck exam: Present: normal inspection. Absent: lymphadenopathy, thyromegaly - Respiratory Respiratory exam: Present: She has fairly good breath sounds bilaterally and her lungs sound reasonably clear. I do not any wheezing today. She has very minimal crackles in the bases. She still has a hoarse cough. - Cardiovascular Cardiovascular exam: Present: regular rate and rhythm. Absent: gallop, systolic murmur - GI/Abdominal GI/Abdominal exam: Present: normal bowel sounds, soft. Absent: organomegaly, tenderness - Extremities Exam Extremities exam: Absent: calf tenderness, edema - Back Exam Back exam: Present: normal inspection - Neurological Exam Neurological exam: Present: alert, oriented X3, CN II-XII intact - Psychiatric Psychiatric exam: Present: normal affect - Skin Skin exam: Present: warm Results - Labs CBC & BMP: 12/31/16 03:50 12/31/16 03:50 Assessment and Plan (1) Bronchitis Status: Acute Assessment and plan: The patient has had a persistent cough and bronchitis for for [address] does not look very bad and I don't think she has a lot of lung disease. We'll try some bronchodilators and a little bit of steroids. She certainly may be aspirating as she has an abnormal esophagus. We will proceed with a bronchoscope today. Current Visit: Yes (2) Hiatal hernia Status: Acute Assessment and plan: She does have a large hiatal hernia and will continue with antireflux measures. She has considerable abnormalities on her EGD. Current Visit: Yes (3) Hypertension Status: Acute Assessment and plan: She has had a history of hypertension and heart failure but she is doing okay at present. Current Visit: Yes (4) Acute dyspnea Status: Chronic Assessment and plan: She mainly had chest pain and shortness of breath is not too bad. Her lungs sound okay and she is breathing comfortably. She mainly has a harsh cough. Current Visit: Yes (5) Back pain Status: Resolved Assessment and plan: She comes in with chest and back pain and is better now. I don't think she's having any signs of ischemia. Current Visit: Yes (6) Dysphagia Status: Acute Assessment and plan: She apparently is having some trouble swallowing now and GI is evaluating. Current Visit: Yes Specialty Discharge - Follow Up or Referrals
--- NOTE | 2017-01-01 08:40 | Operative Note ---
Date of procedure: 01/01/17 Pre-op diagnosis: persistent cough Post-op diagnosis: other (severe bronchitis) Procedure: The patient is a 71-year-old lady that comes in with a persistent cough for over a month. She has not been having a lot of wheezing or shortness of breath. She does have trouble swallowing. Her bronchoscopy will be done to assess airways. She was taken to the bronchoscopy lab and a timeout was done. Demerol 50 mg, Phenergan 25 mg, Robinul 0.1 mg IM was given for preop. Versed 4 mg IV push and topical lidocaine was used for anesthesia. Procedure: The fiberoptic bronchoscope was passed transnasally through the vocal cords into the lungs. The bronchopulmonary symptoms were identified and specimens obtained. Pictures were also taken. Findings: The vocal cords trachea and devin unremarkable. The airways do have marked bronchitis and there is considerable inflammation present. There some thick purulent secretions present that were washed and cleared and sent for culture. There were no endobronchial lesions seen. The right upper lobe, right middle lobe, and right lower lobe were all open. The left upper lobe, lingula, left lower lobe were open. Once airways were cleared the procedure was stopped. She tolerated the procedure well without problems. Impression: Marked bronchitis with purulent secretions. Plan: We'll continue treatment of her bronchitis and anti-reflex measures. Anesthesia: conscious sedation Surgeon / Physician: Luis Manuel Mercer Estimated blood loss: none Specimens: other (washings were sent for culture.) Condition: stable Disposition: floor Results - Labs CBC & BMP: 12/31/16 03:50 12/31/16 03:50 Discharge Plan - Discharge Medications No Action amLODIPine [Norvasc] 5 mg PO QAM Metoprolol Succinate 25 mg PO BID Meclizine HCl 25 mg PO TID PRN PRN Reason: Dizziness Furosemide Tab [Lasix Tab] 20 mg PO MOWEFR hydroCHLOROthiazide [Hydrochlorothiazide] 25 mg PO DAILY - Follow Up or Referral - Forms/Instructions Instructions: Esophageal Stricture (ED)
[2017-01-01] MEDS: METOPROLOL SUCCINATE XL 25 MG TABLET PO SCH ×2 (08:42→21:42)
[2017-01-01] MEDS: LEVOFLOXACIN INJ 500 MG in PREMIX 1 EACH IV SCH (09:15)
--- NOTE | 2017-01-01 10:04 | Gastrointestinal Progress Note ---
Assessment and Plan (1) Dysphagia Status: Acute Assessment and plan: 01/01-Post EGD with findings noted. Tolerating parts of her diet at present time. Plan and addendum to follow by DR Gutierrez. 12/30-No changes at present, tolerating full liquid diet. Continue to monitor at this time and plan for EGD when resp status improves. Plan and addendum to follow by Dr Gutierrez. 12/29-Several month history of difficulty with some solids with onset of shoulder pain, nausea and vomiting on yesterday with shoulder pain radiating down arm with SOB. Hx of hiatal hernia. No GERD reported. Last EGD 2010. Plan and addendum to follow by Dr Gutierrez. Current Visit: Yes Gastroenterology - PN: Subj Interval history: CC: Dysphagia Pt is seen, post FOB, awake and alert. States she is feeling some better today. EGD findings noted with stricture and large hiatal hernia with possible paraesophageal hernia. She is tolerating her diet however states the chicken was too much for her and she did have an episode of vomiting with this. She is tolerating the vegetables at present time. Abdomen is soft, nontender. ROS: Denies SOB or chest pain Exam (Progress Note) - Constitutional Vitals: Period Temp Pulse Resp BP Sys/Benitez Pulse Ox Last 24 Hr 96.5 F-98.2 F 64-112 12-25 89-141/50-77 91-99 General appearance: normal weight, no acute distress - Head Head exam: Present: normal inspection, normocephalic - Eye Eye exam: Present: other (lids and conjunctiva unremarkable). Absent: scleral icterus - ENT ENT exam: Present: normal exam, normal oropharynx - Neck Neck exam: Present: normal inspection - Respiratory Respiratory exam: Present: clear to auscultation bilaterally. Absent: rales, rhonchi, wheezes - Cardiovascular Cardiovascular exam: Present: regular rate and rhythm. Absent: diastolic murmur , JVD, systolic murmur - GI/Abdominal GI/Abdominal exam: Present: normal bowel sounds, soft. Absent: ascites, distended, mass, organomegaly, tenderness - Extremities Exam Extremities exam: Present: normal inspection, full ROM - Back Exam Back exam: Present: normal inspection - Neurological Exam Neurological exam: Present: alert, oriented X3 - Psychiatric Psychiatric exam: Present: normal affect, normal mood - Skin Skin exam: Present: normal color, warm, dry Results - Labs CBC & BMP: 12/31/16 03:50 12/31/16 03:50 Lab Results: I have reviewed the past 24 hour labs Specialty Discharge - Follow Up or Referrals
--- NOTE | 2017-01-01 10:42 | Physician Query Form ---
CLICK EDIT DOCUMENT TO SELECT QUERY ANSWER --> OK --> SIGN Micaela Hendrix RN, CCDS Certified Clinical Emergency Management Director W) [phone] (f) [phone] [email or web address] PROVIDERS: Make your selection(s) from the choices in EACH section by typing an "x" and enter comments in the comment section. Please use your independent medical judgment in providing your response. This request does not imply that any particular answer is desired or expected. CLINICAL INDICATORS: (Providers should not edit this section) The medical record indicates that the patient was admitted with dysphagia, bronchitis, EGD "mildly obstructive fibrous appearing stricture at that level consistent with reflux etiology" BRONCH: "airways do have marked bronchitis and there is considerable inflammation present. There some thick purulent secretions present that were washed and cleared and sent for culture"__ / Patient is on Levofloxacin/ Protonix Based on the above, could you clarify the appropriate diagnosis, if significant , that supports the above abnormalities and additional evaluation, monitoring, and/or treatment rendered: ( ) patient is being treated for acute bronchitis only ( ) patient is being treated for chronic bronchitis only ( x) patient is being treated for aspiration bronchitis ( ) Other, please specify: ( ) Clinically unable to determine COMMENTS: Use of terms such as suspected, likely, or probable (associated with a specific diagnosis that is being evaluated, monitored, or treated as if it exists) are acceptable and can be restated in the discharge summary if not ruled out. MTDD
[2017-01-01] MEDS: DOCUSATE SODIUM 100 MG CAPSULE PO SCH ×2 (12:36→21:42)
[2017-01-01] MEDS: PANTOPRAZOLE 40 MG TABLET PO SCH ×2 (13:20→21:42)
--- NOTE | 2017-01-01 15:06 | Family Practice Progress Note ---
Family Practice - PN: Subj Interval history: Patient was seen this morning. She is doing a little better. Her bronchoscopy was done and it was noted that she had some inflammatory bronchitis with some purulent secretions. She continues to have some difficulty with paroxysmal coughing. Also had an episode of nausea and vomiting last night after eating some chicken, this is presumably related to her gastroesophageal reflux as well as significant and large hiatal hernia which will need to be addressed at some point in time. GI has been seeing her and we are going to on outpatient basis plan for a GI series. Today I'm going to decrease her steroids to 20 mg IV twice a day and if doing reasonably well we'll plan on discharging her in the morning. Patient is in full agreement with this. Exam (Progress Note) - Constitutional Vitals: Period Temp Pulse Resp BP Sys/Benitez Pulse Ox Last 24 Hr 96.3 F-98.2 F 64-112 12-23 89-141/55-77 91-99 Exam: Physical exam is unchanged today. She does continue still have the bronchospasm. Lungs some wheezing with deep breaths, no acute distress respiratory villaseñor Extremities no clubbing cyanosis or edema Neurologically fully intact Abdomen is soft nondistended she did eat all of her lunch today without any problems. It included lasagna as well as her dessert Results - Labs CBC & BMP: 12/31/16 03:50 12/31/16 03:50 Assessment and Plan (1) Acute dyspnea Status: Chronic Assessment and plan: 12/29/2016 we'll going to continue her own current medication regimen. Oxygen as needed To 917 we'll going to decrease her steroids IV and hopefully discharge her tomorrow. Appreciate consult from pulmonary and bronchoscopy today Current Visit: Yes (2) Back pain Status: Resolved Assessment and plan: 12/29/2016. This may just be muscle spasms but is associated with vomiting and also To 917 no complaints of back pain at present Current Visit: Yes (3) Dysphagia Status: Acute Assessment and plan: 12/29/2016 I'm going get GI services to see her. This could be reflux O2 717 we are going to do an E scope him tomorrow if GI is okay from a pulmonary standpoint To 917 we are going to set her up for outpatient GI series workup and get GI consultation outpatient as well Current Visit: Yes Specialty Discharge - Follow Up or Referrals
[2017-01-02] MEDS: ALBUTEROL 1.25 MG/3 ML NEB RESP TX SCH ×2 (00:51→07:00)
[2017-01-02] MEDS: methylPREDNISolone SOD SUC 40 MG/1 ML VIAL IV SCH (03:24)
[2017-01-02] MEDS: LEVOFLOXACIN INJ 500 MG in PREMIX 1 EACH IV SCH (08:13)
[2017-01-02] MEDS: DOCUSATE SODIUM 100 MG CAPSULE PO SCH (08:13)
[2017-01-02] MEDS: PANTOPRAZOLE 40 MG TABLET PO SCH (08:14)
[2017-01-02] MEDS: METOPROLOL SUCCINATE XL 25 MG TABLET PO SCH (08:14)
--- NOTE | 2017-01-02 09:20 | Pulmonology Progress Note ---
Pulmonary - PN: Subj Interval history: Patient is a 71-year-old white lady that comes in with a cough and bronchitis. She says she is not really having much shortness of breath but she continues to have a harsh cough despite getting steroids and bronchodilators. We did a bronchoscope and she has a lot of bronchitis. She certainly could be aspirating some. She will get an upper GI series next week. She says she feels better today and her breathing is better. She still has some cough but overall is improved. She can go home on tapering dose of steroids and antibiotics and bronchodilator therapy. Exam (Progress Note) - Constitutional Vitals: Period Temp Pulse Resp BP Sys/Benitez Pulse Ox Last 24 Hr 96.3 F-98.1 F 51-93 18-20 94-112/51-71 90-99 Exam: General appearance: no acute distress, over weight, other (she does look comfortable and is breathing comfortably and looks like she is doing better.) - Head Head exam: Present: normal inspection, normocephalic - Eye Eye exam: Present: EOMI. Absent: scleral icterus - ENT ENT exam: Present: normal exam - Neck Neck exam: Present: normal inspection. Absent: lymphadenopathy, thyromegaly - Respiratory Respiratory exam: Present: She has fairly good breath sounds bilaterally and her lungs sound reasonably clear. I do not any wheezing today. She looks like she is breathing comfortably now. - Cardiovascular Cardiovascular exam: Present: regular rate and rhythm. Absent: gallop, systolic murmur - GI/Abdominal GI/Abdominal exam: Present: normal bowel sounds, soft. Absent: organomegaly, tenderness - Extremities Exam Extremities exam: Absent: calf tenderness, edema - Back Exam Back exam: Present: normal inspection - Neurological Exam Neurological exam: Present: alert, oriented X3, CN II-XII intact - Psychiatric Psychiatric exam: Present: normal affect - Skin Skin exam: Present: warm Results - Labs CBC & BMP: 12/31/16 03:50 12/31/16 03:50 Assessment and Plan (1) Bronchitis Status: Acute Assessment and plan: The patient has had a persistent cough and bronchitis for for [address] does not look very bad and I don't think she has a lot of lung disease. She does have considerable bronchitis and may be aspirating. She will have an upper GI and next week. She can continue with bronchodilators and taper steroids as an outpatient. Current Visit: Yes (2) Hiatal hernia Status: Acute Assessment and plan: She does have a large hiatal hernia and will continue with antireflux measures. She has considerable abnormalities on her EGD. She will get an upper GI next week. Current Visit: Yes (3) Hypertension Status: Acute Assessment and plan: She has had a history of hypertension and heart failure but she is doing okay at present. Current Visit: Yes (4) Acute dyspnea Status: Chronic Assessment and plan: She mainly had chest pain and shortness of breath is not too bad. Her lungs sound okay and she is breathing comfortably. Overall she is better. Current Visit: Yes (5) Back pain Status: Resolved Assessment and plan: She comes in with chest and back pain and is better now. I don't think she's having any signs of ischemia. She is hemodynamically stable. Current Visit: Yes (6) Dysphagia Status: Acute Assessment and plan: She apparently is having some trouble swallowing now and GI is evaluating. She will have follow-up as an outpatient. Current Visit: Yes Specialty Discharge - Follow Up or Referrals
--- NOTE | 2017-01-02 09:44 | Discharge Summary ---
Hospital Course - Hospital Course Hospital Course: Well-known to me and my clinic. Has a history of congestive heart failure, hypertension, cerebrovascular accident (cerebral hemorrhage). Came in to the ED and presented with some atypical chest pain, radiating across her back and coughing up thick frothy sputum. She was ruled out as cardiac and work u pin regards to a hx of esophageal stricture per GI and Bronchitis with cough per pulmonary. She does also have a significant hiatal hernia, and hx of esophageal stricture. Esophagogastroduodenoscopy with savory dilation esophagus was performed along with a bronchoscope per Pulmonology. She is tolerating her foods better at this point in time and will follow up with GI in one week for an EGD. Her bronchoscope revealed bronchitis with inflammation. She continues to have a cough but not much SOB. She is cleared per GI and Pulmonary for discharge today on antibiotic steroids and bronchodialator and to follow up in their offices as scheduled. Diagnosis - Discharge Diagnosis (1) Acute dyspnea Status: Resolved (2) Back pain Status: Resolved (3) Dysphagia Status: Suspected Specialty Discharge - Follow Up or Referrals Follow up with: Herve Gutierrez MD [Physician] - 1 Week Luis Manuel Mercer MD [Physician] - 01/19/17 9:00 am Carrington Esquivel DO [Physician] - 1 Week (tell office this is a TCM patient) Discharge Plan - Discharge Data Disposition: Disch To Home/Self Care Condition at Discharge: Stable Discharge Diet: advance to your usual diet Activity: resume usual activities as tolerated Hygiene: no restrictions Weight Bearing at Discharge: full weight bearing Driving: no restrictions Contact your physician if you experience:: fever over 101, Shortness of breath - Discharge Medications New Dextromethorphan ER Liquid [Delsym] 60 mg PO BID PRN #0 bottle PRN Reason: Cough guaiFENesin/DM LIQUID [Robitussin Dm] 10 ml PO Q4H PRN #0 udcup PRN Reason: Cough Levofloxacin Tab [Levaquin Tab] 500 mg PO DAILY #5 tablet Continue Meclizine HCl 25 mg PO TID PRN PRN Reason: Dizziness Furosemide Tab [Lasix Tab] 20 mg PO MOWEFR Metoprolol Succinate Xl [Toprol Xl] 25 mg PO DAILY #30 tablet Albuterol Inhaler [Proventil Inhaler] 2 puff INH Q6H PRN #1 inhaler PRN Reason: Shortness Of Breath/Wheezing methylPREDNISolone DOSEPAK [Medrol Dosepak] 4 mg PO DIRECTED #1 pack Discontinued amLODIPine [Norvasc] 5 mg PO QAM Metoprolol Succinate 25 mg PO BID hydroCHLOROthiazide [Hydrochlorothiazide] 25 mg PO DAILY - Follow Up or Referral Follow Up: Herve Gutierrez MD [Physician] - 1 Week Luis Manuel Mercer MD [Physician] - 01/19/17 9:00 am Carrington Esquivel DO [Physician] - 1 Week (tell office this is a TCM patient) - Forms/Instructions Instructions: Acute Bronchitis (DC), Esophageal Stricture (ED) Exam - Constitutional Vitals: Period Temp Pulse Resp BP Sys/Benitez Pulse Ox Last 24 Hr 96.3 F-98.1 F 51-93 18-20 94-112/51-71 90-99 Discharge Results Procedures and tests throughout hospitalization: Pending Orders 01/01/17 08:00 AFB Culture/Smears Routine Bronchial Washings C & Gram St Routine Fungal Culture w/ Prep Routine Labs on day of discharge: Labs from last 24 hours 01/02/17 07:49 POC Glucose 138 H Preliminary micro results at discharge 01/01/17 08:00 Bronchial Washings Culture - Preliminary Bronchial Washings Gram Negative Rods DS: Provider Date of admission: 12/28/16 16:57 Primary care physician: . No PCP Attending physician on admission: Carrington Esquivel DO Consults: 12/28/16 18:14 Consult to Pharmacy [CONS] Routine Reason for Pharmacy Consult: Adjust Meds Renal Funct 12/29/16 06:55 Consult to Physician [CONS] Routine Comment: esophageal dismotility,hx esophageal stricture Consulting Provider: Herve Gutierrez 12/29/16 08:57 Consult to Physician [CONS] Routine Comment: persistent cough Consulting Provider: Luis Manuel Mercer Consult to Specialist Group: Pulmonology Consult Notification Comment: LEFT MESSAGE WITH OFFICE AT 1015 Discharging clinician: Carrington Esquivel DO
[2017-01-02 11:55] VITALS: BP 116/59
[2017-01-02] MEDS: FUROSEMIDE 20 MG TABLET PO SCH (14:05)
== END 2017-01-02 14:43 | disposition home or self-care (01) | DRG 391 ==
LOC: EDBD → EDUNIT# → N.ED 11:21 → N.EDINP 16:57 → N.TELEN 17:47
PROVIDERS: ADMIT Family Medicine; ATTEND Family Medicine

== ENCOUNTER 2017-07-02 14:48 | Inpatient (IN) ==
[2017-07-02] MEDS ORDERED: SODIUM CHLORIDE 0.9% 1,000 ML IV STA (15:45)
--- NOTE | 2017-07-02 15:52 | Emergency Department Note ---
Arrival - Arrival Chief Complaint: Nausea/Vomiting/Diarrhea Stated Complaint: sent by office ED Nursing Triage Note: Nausea and vomiting onset x 6 days - pt was seen by Dr Esquivel and sent to GI lab on Thursday and had futher testing done - pt states that she was sent to ER for evaluation per Dr Gutierrez office Mode of Arrival: Ambulatory Limitations: No Limitations Source: Patient, Family, Old Records Reviewed, RN Notes Reviewed Time Seen by Provider: 07/02/17 15:26 - History of Present Illness HPI Narrative: The patient complains of vomiting for the past 6 days. She was seen by Dr. Esquivel 3 days ago and sent to Dr. Gutierrez who did an EGD. This showed some retained fluid and food in the esophagus but no stricture or obstruction. He set her up for a barium swallow yesterday. This showed no obstruction but did show a small stomach hernia near the GE junction. She has continued to have vomiting since then and reports she is very weak and dehydrated. She called Dr. Gutierrez's office today and was reportedly told to come to the emergency room by Dr. Gutierrez. She had a hiatal hernia repair done in December of this year and it sounds like she has been having problems since then. There was a question initially of a small leak in the esophagus after the repair, however, this was never found. Date of Last Menstrual Period: hyster Allergies/Adverse Reactions: Allergies Allergy/AdvReac Type Severity Reaction Status Date / Time Iodinated Contrast Media - Allergy Severe ANAPHYLAXIS Verified 06/29/17 12:45 Oral and [Iodinated Contrast Media - IV Dye] codeine Allergy Unknown/Unable Verified 06/29/17 12:45 to obtain iodine Allergy Unknown/Unable Verified 06/29/17 12:45 to obtain lisinopril Allergy Unknown/Unable Verified 07/02/17 14:51 to obtain Penicillins Allergy Unknown/Unable Verified 06/29/17 12:45 to obtain Home Medications: Home Medications Medication Instructions Recorded Confirmed Type No Known Home Medications [No 06/29/17 06/29/17 History Known Home Medications] Review of System - Review of System 12 point system: reviewed and no additional remarkable complaints except as stated - Review of System Constitutional: Present: weakness. Absent: fever Head/Ears/Nose/Throat: Absent: nasal drainage, sore throat Respiratory: Absent: cough, respiratory distress Cardiovascular: Absent: chest pain Gastrointestinal: Present: vomiting, hematochezia (Just had a small amount here in the ER.). Absent: abdominal pain, nausea, diarrhea, constipation Medical,Surgical,& Family Hx - Medical History Cardio: History of: Hypertension Neurology: History of: Cerebrovascular Accident (20 years ago), Peripheral Neuropathy No history of: Brain Aneurysm, Cerebral Hemorrhage, Cerebral Palsy, Dementia , Migraine, Multiple Sclerosis, Parkinson's Disease, Seizures, TIA, Neurologocal Cancer HEENT: History of: Eye Problem (glasses), Dental Problems (upper partial) Endocrine: History of: Dyslipidemia Respiratory: History of: Bronchitis, Pneumonia, Respiratory Problems (bronch dr hector 12/2016) Gastrointestinal: History of: GERD, GI Problems (hital hernia repair per Dr Chong 12/2016) - Surgical History Cardiac Surgeries: Patient Denies: Femoral-Popliteal Bypass Graft, Cardiac Catheterization, Cardiac Surgery, Carotid Endarterectomy, Internal Defibrillator, Vascular Access Devices Neurologic Surgeries: Patient denies: Brain Aneurysm, Cerebral Hemorrhage, Neurologic Surgery HEENT Surgeries: Patient denies: Carotid Endarterectomy, Eye Surgery, Tonsilectomy & Adenoidectomy Abdominal Surgeries: Surgical HX of: Abdominal Surgery, Cholecystectomy, Colonoscopy (2010), EGD, Hernia Repair (Hiatal) Patient denies: Appendectomy, Splenectomy Reproductive Surgeries: Surgical HX of;: Gynecologic Surgery, Hysterectomy Patient denies;: Genitourinary Surgery Orthopedic Surgeries: Patient denies;: Orthopedic Surgery - Family History Family History: Reports;: Family Cancer (brother), Family Diabetes (Mother), Family Heart Disease (mother) Denies;: Family Anesthesia Reaction, Family Hypertension, Family Psychiatric Problems, Family Stroke - Social History Smoking Status: Never smoker Frequency of Alcohol Use: None Type of Drug Use: None Exam Physical Examination: GENERAL: Alert. No acute distress. HEENT: Normocephalic and atraumatic. There is no nasal drainage. No pharyngeal erythema or exudate. NECK: Normal inspection. Supple. No lymphadenopathy or meningismus. LUNGS: No respiratory distress. Clear to auscultation bilaterally, no wheezes, rales or rhonchi. HEART: Regular rate and rhythm. ABDOMEN: Soft, nontender and nondistended with normoactive bowel sounds. BACK: Normal inspection. SKIN: Color normal. Warm and dry. EXTREMITIES: Nontender. Normal range of motion. No pedal edema. NEUROLOGICAL/PSYCHIATRIC: Alert and oriented -3 with normal mood and affect. Cranial nerves normal. No motor or sensory deficit. Vital Signs: Vital Signs Temperature 98.7 F 07/02/17 16:00 Pulse Rate 75 07/02/17 16:00 Respiratory Rate 20 07/02/17 16:00 Blood Pressure 114/59 07/02/17 16:00 O2 Sat by Pulse Oximetry 97 07/02/17 14:51 Course Course Narrative: Note: The multiple negatives in the past medical history were not marked by me. They are the result of the triage process, past medical records or other unknown causes. Due to time constraints, these were not all reviewed with the patient and the backslashes were not removed from the chart. They should be ignored. - Reevaluation(s) Reevaluation #1: The patient was discussed with Dr. Gutierrez who was coordinating with Dr. Chong in the patient's care. I also discussed the patient with Dr. Chong and he has seen her here in the ER. He is going to admit her. He has asked that I order a noncontrast CT of the chest. We will continue to give her fluids down here until a bed is available upstairs. Time: 16:43 Results - Labs CBC & BMP: 07/02/17 15:47 07/02/17 15:47 Lab Results: I have reviewed the patients labs Labs: Laboratory Tests 07/02/17 15:47 Total Bilirubin 0.90 AST 16 ALT 16 Amylase 38 Lipase 154.0 - Impressions KUB shows a large hiatal hernia with retained barium contrast. No other abnormalities. CT of the chest shows1. Saccular structure within the lower mediastinum is favored to represent sequelae of leak with communication made with stomach. There is no evidence of gastric mucosa within the wall of this structure. The surrounding wall is fairly uniform in thickness. The communication appears to lack call and posterior to the fundal wrap. Disposition Clinical Impression: Vomiting, Dehydration, Paraesophageal hernia, Esophageal leak Case discussed with: patient, patient's family Disposition: Still a Patient Condition: Stable Time of Disposition: 16:45
[2017-07-02 15:55] LABS: Basophils % 0.4 % (0.0-0.8); Eosinophils # 0.1 10*3/uL (0.0-0.87); Eosinophils % 1.6 % (0.00-10.9); Hematocrit 39.3 VOL% (35.7-47.0); Hemoglobin 13.9 GM/DL (12.0-16.0); Immature Granulocytes % 0.4 %; Immature Granulocytes Absolute 0.02 #; Lymphocytes # 1.3 10*3/uL (1.4-4.0); Lymphocytes % 23.6 % (21.3-54.2); Mean Corpuscular HGB Conc 35.4 GM/DL (32-36); Mean Corpuscular Hemoglobin 31 PG (27-34); Mean Corpuscular Volume 86.4 FL (87-102); Mean Platelet Volume 11.5 FL (9.6-12.0); Monocytes # 0.4 10*3/uL (0.11-0.8); Monocytes % 7.5 % (1.7-12.7); Neutrophils # 3.7 10*3/uL (1.4-7.4); Neutrophils % 66.5 % (38.7-73.9); Platelet Count 189 T/CUMM (130-400); Red Blood Count 4.55 MC/CUMM (3.8-5.5); Red Cell Distribution Width 12.6 % (9.3-17.3); White Blood Count 5.6 T/CUMM (4-12)
[2017-07-02 16:18] LABS: Albumin 3.8 G/DL (3.4-5.0); Bilirubin,Total 0.9 MG/DL (0.2-1.0); Calcium 9.6 MG/DL (8.5-10.1); Potassium 3.6 MMOL/L (3.5-5.1); Total Protein 7.2 G/DL (6.4-8.3)
--- NOTE | 2017-07-02 16:25 | XRay Report ---
XR KUB Indication: Vomiting Comparison: Barium enema 02/13/2011. Barium swallow 07/01/2017. Technique: Supine AP image of the abdomen was obtained. Findings: A moderate amount of barium remains present throughout large bowel likely residual from recent barium study. The appendix is grossly normal in size. No abnormality of the bowel gas pattern is demonstrated. Gallbladder surgically absent. A large hiatal hernia is present with retained barium present. Impression: 1. A large hiatal hernia is present with retained barium noted. 2. Otherwise no abnormalities demonstrated within the abdomen and pelvis. 07/02/2017 4:19 PM PROCEDURE INTERPRETED AT [facility] DEPARTMENT OF RADIOLOGY Final Report Signed by: Dr. Pino Hendrix
--- NOTE | 2017-07-02 17:38 | CT Report ---
CT chest wo con Indication: Paraesophageal hernia. Status post fundoplication with initial concern immediately following surgery for leak. Surgery occurred across and 6 months ago. Patient doing well until 3 days ago. Comparison: Barium swallow 07/01/2017. CT of the chest 01/23/2017. Technique: CT chest was performed without administration of intravenous contrast. In addition to multiple contiguous axial source images, coronal and sagittal MPR series were provided. The CT examination was performed using one or more of the following dose reduction techniques: Automatic exposure control, adjustment of the mA and kV according to patient size, use of acute or iterative reconstruction techniques. Findings: There is a large saccular structure with thin lopez in the lower midline mediastinum containing an air-fluid level with significant streak artifact arising from retained barium from previous barium swallow. This structure in total measures 10 cm in transverse dimension, up to 5.5 cm in AP dimension, and up to 6.1 cm in craniocaudal dimension. When compared to the prior CT of the chest, there has been little change in size. There has been interval increase in amount of air present. Also, this appears insinuated posterior to the esophagus along the cephalad margin of the stomach. There is communication with the stomach has a small amount contrast extends into the upper gastric mucosa. The communication is best demonstrated on axial images #[id number]. The esophagus is somewhat distended and contains an air-fluid level. Lungs are clear. No endobronchial lesions or pleural effusions are present. Heart size is normal. Bony structures demonstrate no acute findings. Soft tissues and musculature of the chest wall demonstrate no acute findings. Imaged portion of the upper abdomen demonstrate surgical absence of the gallbladder. Additionally there is focal fat adjacent to fissure for ligamentum teres within the medial segment left hepatic lobe. Impression: 1. Saccular structure within the lower mediastinum is favored to represent sequelae of leak with communication made with stomach. There is no evidence of gastric mucosa within the wall of this structure. The surrounding wall is fairly uniform in thickness. The communication appears to lack call and posterior to the fundal wrap. 07/02/2017 5:17 PM PROCEDURE INTERPRETED AT [facility] DEPARTMENT OF RADIOLOGY Final Report Signed by: Dr. Pino Hendrix
--- NOTE | 2017-07-02 17:41 | General Surg History&Physical ---
Assessment and Plan (1) Dehydration Status: Acute Assessment and plan: This patient appears volume depleted and she will be admitted for hydration. Her chest CT demonstrates findings that are concerning for a contained esophageal leak with distal mediastinal fluid collection. She does not have a white blood cell count probably because this is draining into her stomach and does not represent any uncontrolled infection. She will be admitted to the hospital for bowel rest and antibiotics. I will place a consult to her primary physician as well as Dr. Gutierrez and Dr. Jimenez to help manage this complication. Current Visit: Yes History of Present Illness Chief complaint: Dysphagia History of present illness: Ms. Denton is a 72 year old female who presents to the ER for inability to tolerate p.o. intake secondary to dysphagia. She had a robotic assisted laparoscopic paraesophageal hernia repair with mesh in December 2016 and was doing well until last Thursday when she developed some difficulty tolerating p.o. intake. She denies any fevers. She has had a workup as an outpatient including a barium esophagram and EGD which demonstrated what was thought to represent a paraesophageal hernia recurrence. She presents to the ER today due to her inability to tolerate p.o. She was evaluated in the ER with lab work that was normal and a chest CT showed retained contrast and what appeared to be a non-mucosal lined cavity in the lower mediastinum communicating with the esophagus on prior barium esophagram. The prior barium esophagram were thought to represent a paraesophageal hernia with this looks more like a contained leak from the distal esophagus that also drains into the stomach below the diaphragm. The diaphragmatic repair appears intact and the fundoplication also appears intact. The patient is not septic and does not appear ill. Home Medications Medication Instructions Recorded Confirmed Type No Known Home Medications [No 06/29/17 06/29/17 History Known Home Medications] Allergies Allergy/AdvReac Type Severity Reaction Status Date / Time Iodinated Contrast Media - Allergy Severe ANAPHYLAXIS Verified 06/29/17 12:45 Oral and [Iodinated Contrast Media - IV Dye] codeine Allergy Unknown/Unable Verified 06/29/17 12:45 to obtain iodine Allergy Unknown/Unable Verified 06/29/17 12:45 to obtain lisinopril Allergy Unknown/Unable Verified 07/02/17 14:51 to obtain Penicillins Allergy Unknown/Unable Verified 06/29/17 12:45 to obtain Medical,Surgical,& Family Hx - Medical History Cardio: History of: Hypertension Neurology: History of: Cerebrovascular Accident (20 years ago), Peripheral Neuropathy No history of: Brain Aneurysm, Cerebral Hemorrhage, Cerebral Palsy, Dementia , Migraine, Multiple Sclerosis, Parkinson's Disease, Seizures, TIA, Neurologocal Cancer HEENT: History of: Eye Problem (glasses), Dental Problems (upper partial) Endocrine: History of: Dyslipidemia Respiratory: History of: Bronchitis, Pneumonia, Respiratory Problems (bronch dr hector 12/2016) Gastrointestinal: History of: GERD, GI Problems (hital hernia repair per Dr Chong 12/2016) - Surgical History Cardiac Surgeries: Patient Denies: Femoral-Popliteal Bypass Graft, Cardiac Catheterization, Cardiac Surgery, Carotid Endarterectomy, Internal Defibrillator, Vascular Access Devices Neurologic Surgeries: Patient denies: Brain Aneurysm, Cerebral Hemorrhage, Neurologic Surgery HEENT Surgeries: Patient denies: Carotid Endarterectomy, Eye Surgery, Tonsilectomy & Adenoidectomy Abdominal Surgeries: Surgical HX of: Abdominal Surgery, Cholecystectomy, Colonoscopy (2010), EGD, Hernia Repair (Hiatal) Patient denies: Appendectomy, Splenectomy Reproductive Surgeries: Surgical HX of;: Gynecologic Surgery, Hysterectomy Patient denies;: Genitourinary Surgery Orthopedic Surgeries: Patient denies;: Orthopedic Surgery - Family History Family History: Reports;: Family Cancer (brother), Family Diabetes (Mother), Family Heart Disease (mother) Denies;: Family Anesthesia Reaction, Family Hypertension, Family Psychiatric Problems, Family Stroke - Social History Smoking Status: Never smoker Frequency of Alcohol Use: None Type of Drug Use: None Exam - Constitutional Vitals: Period Temp Pulse Resp BP Sys/Benitez Pulse Ox Last 24 Hr 98.7 F-98.7 F 75-75 20-20 114-114/59-59 97 General appearance: normal weight, no acute distress - Head Head exam: Present: normal inspection, normocephalic - Eye Eye exam: Present: EOMI. Absent: scleral icterus Pupils: Present: CHRISTY - ENT ENT exam: Present: normal exam Mouth exam: Present: normal external inspection, normal voice - Neck Neck exam: Present: normal inspection, trachea midline - Respiratory Respiratory exam: Present: clear to auscultation bilaterally. Absent: accessory muscle use, chest wall tenderness - Cardiovascular Cardiovascular exam: Present: RRR. Absent: systolic murmur, tachycardia - GI/Abdominal GI/Abdominal exam: Present: normal bowel sounds, soft. Absent: tenderness, rebound - Extremities Exam Extremities exam: Present: normal inspection, normal capillary refill - Back Exam Back exam: Present: normal inspection - Neurological Exam Neurological exam: Present: alert, oriented X3 Speech: Present: normal - Skin Skin exam: Present: normal color, warm - Constitutional Constitutional: Present: as per HPI - EENT Nose, mouth and throat: Present: as per HPI - Cardiovascular Cardiovascular: Present: as per HPI - Respiratory Respiratory: Present: as per HPI - Gastrointestinal Gastrointestinal: Present: as per HPI - Genitourinary Genitourinary: Present: as per HPI - Musculoskeletal Musculoskeletal: Present: as per HPI - Neurological Neurological: Present: as per HPI - Endocrine Endocrine: Present: as per HPI Hematologic/Lymphatic: Present: as per HPI Results - Labs CBC & BMP: 07/02/17 15:47 07/02/17 15:47 - Diagnostic Findings Procedure: CT - chest: image reviewed by me, report reviewed by me
[2017-07-02] MEDS ORDERED: ONDANSETRON 4 MG/2 ML VIAL IV PRN (18:35)
[2017-07-02] MEDS ORDERED: PROMETHAZINE 25 MG/1 ML VIAL IM PRN (18:35)
[2017-07-02] MEDS ORDERED: ACETAMINOPHEN 325 MG TABLET PO PRN (18:35)
[2017-07-02] MEDS: LACTATED RINGERS 1,000 ML IV SCH (22:26)
[2017-07-02] MEDS: metroNIDAZOLE INJ 500 MG in PREMIX 1 EACH IV SCH (22:28)
[2017-07-02] MEDS: LEVOFLOXACIN INJ 750 MG in PREMIX 1 EACH IV SCH (23:48)
[2017-07-03] MEDS: metroNIDAZOLE INJ 500 MG in PREMIX 1 EACH IV SCH ×3 (02:51→17:42)
[2017-07-03] MEDS: LACTATED RINGERS 1,000 ML IV SCH ×4 (03:38→22:45)
--- NOTE | 2017-07-03 07:06 | Physician Query Form ---
CLICK EDIT DOCUMENT TO SELECT QUERY ANSWER --> OK --> SIGN Micaela Hendrix RN, CCDS Certified Clinical Haircutter W) [phone] (f) [phone] [email or web address]: Make your selection(s) from the choices in EACH section by typing an "x" and enter comments in the comment section. Please use your independent medical judgment in providing your response. This request does not imply that any particular answer is desired or expected. CLINICAL INDICATORS: (Providers should not edit this section) "The prior barium esophagram were thought to represent a paraesophageal hernia with this looks more like a contained leak from the distal esophagus that also drains into the stomach below the diaphragm" "The diaphragmatic repair appears intact and the fundoplication also appears intact" Please clarify the following: ( ) The above is an inherent, integral or routinely potential/expected occurrence of surgery (not a complication) ( ) The above was an inadvertent, unintended, iatrogenic, or unexpected occurrence of surgery (complication) ( ) The above is a complication but not due to the surgery, specify cause: ( ) Other, please specify: (x) Clinically unable to determine COMMENTS: PLEASE ALSO DOCUMENT RESPONSE IN PROGRESS NOTES AND/OR DISCHARGE SUMMARY Use of terms such as suspected, likely, or probable (associated with a specific diagnosis that is being evaluated, monitored, or treated as if it exists) are acceptable and can be restated in the discharge summary if not ruled out. MTDD
[2017-07-03 07:51] LABS: Basophils % 0.5 % (0.0-0.8); Eosinophils # 0.1 10*3/uL (0.0-0.87); Eosinophils % 2.3 % (0.00-10.9); Hematocrit 36.8 VOL% (35.7-47.0); Hemoglobin 12.8 GM/DL (12.0-16.0); Immature Granulocytes % 0.2 %; Immature Granulocytes Absolute 0.01 #; Lymphocytes # 1.1 10*3/uL (1.4-4.0); Lymphocytes % 25.1 % (21.3-54.2); Mean Corpuscular HGB Conc 34.8 GM/DL (32-36); Mean Corpuscular Hemoglobin 30 PG (27-34); Mean Platelet Volume 11.6 FL (9.6-12.0); Monocytes # 0.3 10*3/uL (0.11-0.8); Monocytes % 7.4 % (1.7-12.7); Neutrophils # 2.8 10*3/uL (1.4-7.4); Neutrophils % 64.5 % (38.7-73.9); Platelet Count 153 T/CUMM (130-400); Red Blood Count 4.23 MC/CUMM (3.8-5.5); Red Cell Distribution Width 12.5 % (9.3-17.3); White Blood Count 4.3 T/CUMM (4-12)
[2017-07-03 08:00] LABS: INR 1.1
[2017-07-03 08:28] LABS: Albumin 3.1 G/DL (3.4-5.0); Bilirubin,Total 0.9 MG/DL (0.2-1.0); Calcium 8.5 MG/DL (8.5-10.1); Potassium 3.7 MMOL/L (3.5-5.1); Total Protein 6.2 G/DL (6.4-8.3)
--- NOTE | 2017-07-03 09:13 | Gastrointestinal Consult Note ---
Assessment and Plan (1) Dysphagia Status: Suspected Assessment and plan: 07/03-history of paraesophageal hernia repair in December now with inability to swallow 1 week. Findings noted on CT of chest as well as EGD and barium swallow earlier this week. Will discuss case with Dr. Gutierrez and father plan an addendum to follow. Current Visit: No History of Present Illness Chief complaint: Dysphagia History of present illness: Ms. Denton is a 72 year old female who was admitted to the hospital on yesterday due to dehydration and inability to swallow. Patient has a prior history of paraesophageal hernia repair with mesh placement in December of this year by Dr. Chong. She had a long history of prior to this of continued dysphagia and esophageal dilations without significant improvement. Patient states that initially after her surgery in December she did well and is managed although her eating was never able to resume to normal according to her. She states that approximately a week and a half ago she tried to eat a meal and was unable to swallow at all and had to regurgitate the contents. Discontinue the next couple of days until patient was unable to swallow anything including a majority of her liquids. She states for the past week that she is only been able to swallow ice and little bits of water and Gatorade. She presented to Dr. Esquivel's office on Thursday and was at that time referred to Dr. Gutierrez in which she had an EGD done with findings of retained food and fluid in the esophagus without stricture seen. This was followed up with a barium swallow with findings of narrowing of the distal esophagus with normal primary peristalsis however few tertiary contractions of the distal esophagus. Also mention of stomach hernia with air-fluid levels present adjacent to the distal esophagus projecting into the gastroesophageal junction. Patient states that she has lost approximately 50 pounds since her surgery in December. She had a CT of the chest without contrast which showed saccular structure in the lower mediastinum which was favored to represent a leak with communication made with the stomach. Patient has consulted with Dr. Chong at this time. And noted the Dr. Jimenez is consulted as well for further evaluation. Home Medications Medication Instructions Recorded Confirmed Type No Known Home Medications [No 06/29/17 07/02/17 History Known Home Medications] Allergies Allergy/AdvReac Type Severity Reaction Status Date / Time Iodinated Contrast Media - Allergy Severe ANAPHYLAXIS Verified 06/29/17 12:45 Oral and [Iodinated Contrast Media - IV Dye] codeine Allergy Unknown/Unable Verified 06/29/17 12:45 to obtain iodine Allergy Unknown/Unable Verified 06/29/17 12:45 to obtain lisinopril Allergy Unknown/Unable Verified 07/02/17 14:51 to obtain Penicillins Allergy Unknown/Unable Verified 06/29/17 12:45 to obtain Medical,Surgical,& Family Hx - Medical History Cardio: No history of: Hypertension Neurology: History of: Cerebrovascular Accident (20 years ago), Peripheral Neuropathy No history of: Brain Aneurysm, Cerebral Hemorrhage, Cerebral Palsy, Dementia , Migraine, Multiple Sclerosis, Parkinson's Disease, Seizures, TIA, Neurologocal Cancer HEENT: History of: Eye Problem (glasses), Dental Problems (upper partial) Endocrine: No history of: Dyslipidemia Respiratory: History of: Bronchitis, Pneumonia, Respiratory Problems (bronch dr hector 12/2016) Gastrointestinal: History of: GI Problems (hital hernia repair per Dr Chong 2016) No history of: GERD - Surgical History Cardiac Surgeries: Patient Denies: Femoral-Popliteal Bypass Graft, Cardiac Catheterization, Cardiac Surgery, Carotid Endarterectomy, Internal Defibrillator, Vascular Access Devices Neurologic Surgeries: Patient denies: Brain Aneurysm, Cerebral Hemorrhage, Neurologic Surgery HEENT Surgeries: Patient denies: Carotid Endarterectomy, Eye Surgery, Tonsilectomy & Adenoidectomy Abdominal Surgeries: Surgical HX of: Abdominal Surgery, Cholecystectomy, Colonoscopy (12/2016), EGD (12/2016), Hernia Repair (Hiatal) Patient denies: Appendectomy, Splenectomy Reproductive Surgeries: Surgical HX of;: Gynecologic Surgery, Hysterectomy (40 years ago) Patient denies;: Genitourinary Surgery Orthopedic Surgeries: Patient denies;: Orthopedic Surgery - Family History Family History: Reports;: Family Cancer (brother), Family Diabetes (Mother), Family Heart Disease (mother) Denies;: Family Anesthesia Reaction, Family Hypertension, Family Psychiatric Problems, Family Stroke - Social History Smoking Status: Never smoker Frequency of Alcohol Use: None Type of Drug Use: None 12 point system: reviewed and no additional remarkable complaints except as stated - Constitutional Constitutional: Present: as per HPI, weight loss (50 pounds 6 months) - EENT Eyes: Present: as per HPI Ears: Present: as per HPI Nose, mouth and throat: Present: as per HPI, dysphagia - Cardiovascular Cardiovascular: Present: as per HPI - Respiratory Respiratory: Present: as per HPI - Gastrointestinal Gastrointestinal: Present: as per HPI, dysphagia - Genitourinary Genitourinary: Present: as per HPI - Musculoskeletal Musculoskeletal: Present: as per HPI - Neurological Neurological: Present: as per HPI - Psychiatric Psychiatric: Present: as per HPI - Endocrine Endocrine: Present: as per HPI - Hematologic/Lymphatic Hematologic/Lymphatic: Present: as per HPI Exam - Constitutional Vitals: Period Temp Pulse Resp BP Sys/Benitez Pulse Ox Last 24 Hr 97.2 F-98.7 F 52-75 17-20 112-134/59-78 94-99 General appearance: normal weight, no acute distress - Head Head exam: Present: normal inspection, normocephalic - Eye Eye exam: Present: other (Lids and conjunctive are unremarkable). Absent: scleral icterus - ENT ENT exam: Present: normal exam, normal oropharynx - Neck Neck exam: Present: normal inspection - Respiratory Respiratory exam: Present: clear to auscultation bilaterally. Absent: rales, rhonchi, wheezes - Cardiovascular Cardiovascular exam: Present: regular rate and rhythm. Absent: diastolic murmur , JVD, systolic murmur - GI/Abdominal GI/Abdominal exam: Present: normal bowel sounds, soft. Absent: ascites, distended, mass, organomegaly, tenderness - Extremities Exam Extremities exam: Present: normal inspection, full ROM - Back Exam Back exam: Present: normal inspection - Neurological Exam Neurological exam: Present: alert, oriented X3 - Psychiatric Psychiatric exam: Present: normal affect, normal mood - Skin Skin exam: Present: normal color, warm, dry Results - Labs CBC & BMP: 07/03/17 07:36 07/03/17 07:36 Lab Results: I have reviewed the past 24 hour labs - Diagnostic Findings Procedure: CT - chest: report reviewed by me
[2017-07-03] MEDS ORDERED: GLUCAGON 1 MG VIAL IM PRN (09:16)
[2017-07-03] MEDS ORDERED: DEXTROSE 50% 25 GM/50 ML SYRINGE IV PRN (09:16)
[2017-07-03] MEDS: PANTOPRAZOLE 40 MG VIAL IV SCH (09:37)
[2017-07-03 11:18] LABS: Prealbumin 14.7 MG/DL (20-40)
--- NOTE | 2017-07-03 11:46 | General Surgery Progress Note ---
Assessment and Plan (1) Dehydration Status: Acute Assessment and plan: I discussed the patient's presentation at length with multiple physicians to try to organize and expedite her care. She appears to have a contained leak in her distal esophagus or from her stomach that creates a fluid collection air- fluid level in the posterior mediastinum. The patient is stable with no evidence of sepsis. Our current plan is to place her on TPN at the place an NG tube hopefully that will go into her stomach to decompress her stomach over the weekend. She will be scheduled for a drainage procedure with Dr. Jimenez next Thursday and Dr. Gutierrez will be available for intraoperative endoscopy. In addition, we will also try to place a gastrojejunostomy tube in order to decompress her stomach and feed her distally to help with her nutrition postoperatively. The patient is on antibiotics and we will continue this over the weekend as well. Current Visit: Yes Subjective Patient reports: Present: no new complaints, afebrile Exam - Constitutional Vitals: Period Temp Pulse Resp BP Sys/Benitez Pulse Ox Last 24 Hr 97.2 F-98.7 F 52-75 17-20 112-134/59-78 94-99 General appearance: normal weight, no acute distress - Head Head exam: Present: normal inspection, normocephalic - Eye Eye exam: Present: EOMI. Absent: scleral icterus Pupils: Present: CHRISTY - ENT ENT exam: Present: normal exam Mouth exam: Present: normal external inspection, normal voice - Neck Neck exam: Present: normal inspection, trachea midline - Respiratory Respiratory exam: Present: clear to auscultation bilaterally. Absent: accessory muscle use, chest wall tenderness - Cardiovascular Cardiovascular exam: Present: RRR. Absent: systolic murmur, tachycardia - GI/Abdominal GI/Abdominal exam: Present: soft. Absent: tenderness, rebound - Extremities Exam Extremities exam: Present: normal inspection, normal capillary refill - Back Exam Back exam: Present: normal inspection - Neurological Exam Neurological exam: Present: alert, oriented X3 Speech: Present: normal - Skin Skin exam: Present: normal color, warm Results - Labs CBC & BMP: 07/03/17 07:36 07/03/17 07:36
--- NOTE | 2017-07-03 11:49 | Post Interventional Procedure ---
Pre-op diagnosis: esophageal leak Post-op diagnosis: same Procedure: PICC placement Contrast: none Flouroscopy: 0.2 min Radiologist: Lon Varghese Anesthesia: local Specimens: none sent Estimated blood loss: none Complications: none Condition: stable Description/Findings: 5 Fr dual lumen power picc placement done and ready to use Assessment and Plan - Time spent with patient Time spent with patient: Less than 30 minutes
--- NOTE | 2017-07-03 11:55 | Interventional Radiology Rpt ---
IR PICC line insertion, US guide vascular access IR PICC Placement Peripherally-inserted central catheter (PICC) placement using ultrasound and fluoroscopic guidance Ultrasound of the left upper extremity Clinical Information: 72 year old female with probable esophageal leak and needs bowel rest with TPN administration PICC is requested Physician: Dr. Varghese Procedure: The patient was advised of the benefits, risks, and alternatives of the procedure and informed consent was obtained. A time out was performed with verification of the patient's name, MRN, site of procedure, and type of procedure to be performed. The patient was positioned in the supine position on the angiographic table. The site was prepped and draped in the usual sterile fashion. Additionally, maximal sterile barrier technique was employed for the procedure. A diet consultant radiograph reveals no relevant abnormality. Ultrasound examination of the left arm demonstrates patent and compressible brachial and basilic veins. The left arm was prepped and draped in the usual sterile fashion. The left basilic vein was again identified. Using ultrasound guidance, a 21 gauge needle was used to access the vein. A permanent ultrasound recording of vascular access was obtained for the patient's record. A 0.018" cope wire was then advanced into the vein. The needle was exchanged for a 5 Bhutanese peel-away sheath. A 5 Bhutanese double lumen Bard Solo PICC catheter was measured and trimmed to the 40 to cm tate. The PICC line was advanced through the sheath and into the central circulation. The catheter tip was positioned at the cavo-atrial junction. The peel-away sheath was then removed. At the conclusion of the procedure, the catheter was secured in place using a Stat-Lock device. A sterile dressing was applied. The lumens aspirate and flush freely. The catheter is ready for immediate use. The patient tolerated the procedure well and was returned to the PRU in stable condition. EBL: < 5 mL. Complications: None. Fluoroscopy time: 0.2 minutes Total number of images for this study: 2 Conclusion: Successful placement of a 5 Bhutanese double lumen Bard Solo power injectable PICC via the left basilic vein. The catheter is ready for immediate use. PROCEDURE INTERPRETED AT [facility] DEPARTMENT OF RADIOLOGY Final Report Signed by: Lon Varghese
--- NOTE | 2017-07-03 12:21 | Consultation ---
Assessment and Plan (1) Dehydration Status: Acute Assessment and plan: 07/03/2017: We are hydrating her at this time at 125 mils an hour Current Visit: Yes (2) Paraesophageal hernia Status: Acute Assessment and plan: 07/03/2017: Appreciate GI and surgical intervention/assessment Current Visit: Yes (3) Hiatal hernia Status: Acute Assessment and plan: 07/03/2017: As above. Continue to hold n.p.o. at present and give IV fluids Current Visit: No (4) Esophageal stricture Status: Acute Assessment and plan: 07/03/2017: Surgical assistance to evaluate possible options Current Visit: Yes History of Present Illness - Consult Narrative Reason for consult: Medical management History of present illness: Ms. Denton is a 72 year old female Well-known to me, but have been taking care of her for some time. Came to the emergency room unable to tolerate p.o. intake. I actually saw her 3 days ago with this issue. Was sent to have a upper endoscopy, and was felt that she had a recurrent paraesophageal hernia, with some distal EEG junction stricture. She has become a little dehydrated and unable to take even liquids. Does have a history of having a robotic assisted laparoscopic paraesophageal hernia repair in December of this year and was doing well until recently when she developed the symptoms. In the emergency room her lab work was normal but a CT contrast showed a non-mucosal cavity in the lower mediastinum communicating with the esophagus on prior bearing esophagram. There was concern for a contained leak in the distal esophagus with only minimal drainage into the stomach. The patient's stable hemodynamically. She talks without difficulty and has no difficulty breathing. Has been admitted under surgery for bowel rest and antibiotics as well as consultation for possible surgery. She also has a GI consult. Will follow along. She has very few other comorbidities and really takes no other medications. CC: Rosalio Chong MD - Home Medications and Allergies Home Medications: Home Medications Medication Instructions Recorded Confirmed Type No Known Home Medications [No 06/29/17 07/02/17 History Known Home Medications] Allergies/Adverse Reactions: Allergies Allergy/AdvReac Type Severity Reaction Status Date / Time Iodinated Contrast Media - Allergy Severe ANAPHYLAXIS Verified 06/29/17 12:45 Oral and [Iodinated Contrast Media - IV Dye] codeine Allergy Unknown/Unable Verified 06/29/17 12:45 to obtain iodine Allergy Unknown/Unable Verified 06/29/17 12:45 to obtain lisinopril Allergy Unknown/Unable Verified 07/02/17 14:51 to obtain Penicillins Allergy Unknown/Unable Verified 06/29/17 12:45 to obtain 12 point system: reviewed and no additional remarkable complaints except as stated (Those mentioned in the history and physical) Medical,Surgical,& Family Hx - Medical History Cardio: No history of: Hypertension Neurology: History of: Cerebrovascular Accident (20 years ago), Peripheral Neuropathy No history of: Brain Aneurysm, Cerebral Hemorrhage, Cerebral Palsy, Dementia , Migraine, Multiple Sclerosis, Parkinson's Disease, Seizures, TIA, Neurologocal Cancer HEENT: History of: Eye Problem (glasses), Dental Problems (upper partial) Endocrine: No history of: Dyslipidemia Respiratory: History of: Bronchitis, Pneumonia, Respiratory Problems (bronch dr hector 12/2016) Gastrointestinal: History of: GI Problems (hital hernia repair per Dr Chong 2016) No history of: GERD - Surgical History Cardiac Surgeries: Patient Denies: Femoral-Popliteal Bypass Graft, Cardiac Catheterization, Cardiac Surgery, Carotid Endarterectomy, Internal Defibrillator, Vascular Access Devices Neurologic Surgeries: Patient denies: Brain Aneurysm, Cerebral Hemorrhage, Neurologic Surgery HEENT Surgeries: Patient denies: Carotid Endarterectomy, Eye Surgery, Tonsilectomy & Adenoidectomy Abdominal Surgeries: Surgical HX of: Abdominal Surgery, Cholecystectomy, Colonoscopy (12/2016), EGD (12/2016), Hernia Repair (Hiatal) Patient denies: Appendectomy, Splenectomy Reproductive Surgeries: Surgical HX of;: Gynecologic Surgery, Hysterectomy (40 years ago) Patient denies;: Genitourinary Surgery Orthopedic Surgeries: Patient denies;: Orthopedic Surgery - Family History Family History: Reports;: Family Cancer (brother), Family Diabetes (Mother), Family Heart Disease (mother) Denies;: Family Anesthesia Reaction, Family Hypertension, Family Psychiatric Problems, Family Stroke - Social History Smoking Status: Never smoker Frequency of Alcohol Use: None Type of Drug Use: None Exam - Constitutional Vitals: Period Temp Pulse Resp BP Sys/Benitez Pulse Ox Last 24 Hr 97.2 F-98.7 F 52-75 17-20 112-134/59-78 94-99 Exam: Generally a very well-developed female. She has lost weight recently secondary to the current issue. HEENT pupils are equal reactive to light extraocular movements are intact neck is supple trachea midline Cardiovascular rate is regular no gallop or rub Lungs are clear she is not have any shortness of breath wheezing or rales. Abdomen is soft nondistended nontender positive bowel sounds. She has lost weight as mentioned Extremities no clubbing cyanosis or edema. She does have some decreased skin turgor secondary to mild dehydration. Neurologically fully intact Results - Labs CBC & BMP: 07/03/17 07:36 07/03/17 07:36
--- NOTE | 2017-07-03 14:56 | Cardiothoracic Consult ---
Assessment and Plan - Time spent with patient Time spent with patient: Greater than 30 minutes (1) Esophagus perforation Status: Acute Assessment and plan: 72-year-old female who 6 months status post paraesophageal hernia repair with toupee fundoplication. She comes back with contained contrast leak from the distal esophagus. After reviewing her studies and extensive discussion with Dr. Chong at Dr. Gutierrez the differential diagnosis in my mind includes at least leak from the distal esophagus, leak from the fundus of the stomach that is contained and/or associated recurrence of the paraesophageal hernia or slipping of the wrap. I have discussed this extensively with Dr. Chong who in turn discussed it with Dr. Sood. The patient will need exploration of her chest, exploration of the mediastinum drainage of this collection. Evaluation for where this leak would be coming from. Perhaps even really reducing the hernia into the abdomen and repair of the esophageal leak. She will also require gastrostomy as well as jejunostomy either that being done surgically or endoscopically for drainage and feeding on the long-term. We have discussed which would be the best approach to start with and we have reached the conclusion that it might be better if I start exploring the chest and evaluating from the chest standpoint. I discussed the details with the patient and explained that this is a high risk surgery and complex situation. She understands and eager to proceed. I will also ask Dr. Gutierrez to come do an on table EGD once I could explore the esophagus in hopes to find where the leak is coming from. That will be done on July 07. Current Visit: Yes History of Present Illness - Data of Consult Patient: new to practice Consult date: 07/03/17 Requesting Physician: Rosalio Chong - Consult Narrative Reason for consult: Contained esophageal leak History of present illness: Ms. Denton is a 72 year old female who is 6 months status post paraesophageal hernia repair with partial wrap with the patient fundoplication and mesh placement closure of the diaphragmatic rent. Back then 2 days later after surgery she was readmitted for diarrhea and dehydration. She did have a CT scan which appeared to have some form of fluid collection in the lower mediastinum versus left over sac from the hernia. There was no leak noted back then. The patient over this period of time lost around 30 pounds due to inability to eat mainly due to lack of appetite. 10 days ago the patient started not tolerating food and forcibly vomiting and regurgitating food that progressed to regurgitating saliva. She was taken to the lab and an EGD was performed which failed to show any abnormalities. The patient had a swallow study which showed some form of contrast leak. The reading suggested but the possibility of recurrent hernia. A CT scan without contrast only p.o. contrast showed contrast extravasation with a fluid collection in the lower mediastinum. The patient currently is on TPN and n.p.o. CC: Rosalio Chong MD - Home Medications and Allergies Home Medications: Home Medications Medication Instructions Recorded Confirmed Type No Known Home Medications [No 06/29/17 07/02/17 History Known Home Medications] Allergies/Adverse Reactions: Allergies Allergy/AdvReac Type Severity Reaction Status Date / Time Iodinated Contrast Media - Allergy Severe ANAPHYLAXIS Verified 06/29/17 12:45 Oral and [Iodinated Contrast Media - IV Dye] codeine Allergy Unknown/Unable Verified 06/29/17 12:45 to obtain iodine Allergy Unknown/Unable Verified 06/29/17 12:45 to obtain lisinopril Allergy Unknown/Unable Verified 07/02/17 14:51 to obtain Penicillins Allergy Unknown/Unable Verified 06/29/17 12:45 to obtain 12 point system: reviewed and no additional remarkable complaints except as stated (HPI) Medical,Surgical,& Family Hx - Medical History Cardio: No history of: Hypertension Neurology: History of: Cerebrovascular Accident (20 years ago), Peripheral Neuropathy No history of: Brain Aneurysm, Cerebral Hemorrhage, Cerebral Palsy, Dementia , Migraine, Multiple Sclerosis, Parkinson's Disease, Seizures, TIA, Neurologocal Cancer HEENT: History of: Eye Problem (glasses), Dental Problems (upper partial) Endocrine: No history of: Dyslipidemia Respiratory: History of: Bronchitis, Pneumonia, Respiratory Problems (bronch dr hector 12/2016) Gastrointestinal: History of: GI Problems (hital hernia repair per Dr Chong 2016) No history of: GERD - Surgical History Cardiac Surgeries: Patient Denies: Femoral-Popliteal Bypass Graft, Cardiac Catheterization, Cardiac Surgery, Carotid Endarterectomy, Internal Defibrillator, Vascular Access Devices Neurologic Surgeries: Patient denies: Brain Aneurysm, Cerebral Hemorrhage, Neurologic Surgery HEENT Surgeries: Patient denies: Carotid Endarterectomy, Eye Surgery, Tonsilectomy & Adenoidectomy Abdominal Surgeries: Surgical HX of: Abdominal Surgery, Cholecystectomy, Colonoscopy (12/2016), EGD (12/2016), Hernia Repair (Hiatal) Patient denies: Appendectomy, Splenectomy Reproductive Surgeries: Surgical HX of;: Gynecologic Surgery, Hysterectomy (40 years ago) Patient denies;: Genitourinary Surgery Orthopedic Surgeries: Patient denies;: Orthopedic Surgery - Family History Family History: Reports;: Family Cancer (brother), Family Diabetes (Mother), Family Heart Disease (mother) Denies;: Family Anesthesia Reaction, Family Hypertension, Family Psychiatric Problems, Family Stroke - Social History Smoking Status: Never smoker Frequency of Alcohol Use: None Type of Drug Use: None Physical Examination Vital Signs Temp Pulse Resp BP Pulse Ox 98.7 F 75 20 114/59 97 07/02/17 14:51 07/02/17 14:51 07/02/17 14:51 07/02/17 14:51 07/02/17 14:51 General: Present: Appears Well HEENT: Present: PERRL Neck: Present: Supple Neck Cardiac: Present: Reg Rate and Rhythm Lungs: Present: Normal Exam Neuro: Present: Cranial Nerve 2-12 Intact Abdomen: Present: Soft, Active Bowel Sounds Skin: Present: Clear Result/EKG - Labs CBC & BMP: 07/03/17 07:36 07/03/17 07:36 Labs: Laboratory Results - last 24 hr 07/02/17 07/02/17 07/02/17 15:47 15:47 15:47 WBC 5.6 RBC 4.55 Hgb 13.9 Hct 39.3 MCV 86.4 L MCH 31 MCHC 35.4 RDW 12.6 Plt Count 189 MPV 11.5 Neut % (Auto) 66.5 Lymph % (Auto) 23.6 [place] % (Auto) 7.5 Eos % (Auto) 1.6 Baso % (Auto) 0.4 Neut # (Auto) 3.7 Lymph # (Auto) 1.3 L [place] # (Auto) 0.4 Eos # (Auto) 0.1 Baso # (Auto) 0.0 Immature Gran % 0.4 Nucleated RBC % 0.0 Immature Gran # 0.02 Nucleated RBCs # 0.00 Immature Plt Fraction 0.0 INR PT Patient/Control Mix Sodium 143 Potassium 3.6 Chloride 110 H Carbon Dioxide 23 Anion Gap 13.6 BUN 22 H Creatinine 1.00 GFR Calculation 67 BUN/Creatinine Ratio 22.00 H Glucose 102 Calculated Osmolality 287.0 Calcium 9.6 Magnesium 2.2 Total Bilirubin 0.90 AST 16 ALT 16 Alkaline Phosphatase 95 C-Reactive Protein Total Protein 7.2 Albumin 3.8 Globulin 3.4 Albumin/Globulin Ratio 1.1 Prealbumin Amylase 38 Lipase 154.0 07/03/17 07/03/17 07/03/17 07:36 07:36 07:36 WBC 4.3 RBC 4.23 Hgb 12.8 Hct 36.8 MCV 87.0 MCH 30 MCHC 34.8 RDW 12.5 Plt Count 153 MPV 11.6 Neut % (Auto) 64.5 Lymph % (Auto) 25.1 [place] % (Auto) 7.4 Eos % (Auto) 2.3 Baso % (Auto) 0.5 Neut # (Auto) 2.8 Lymph # (Auto) 1.1 L [place] # (Auto) 0.3 Eos # (Auto) 0.1 Baso # (Auto) 0.0 Immature Gran % 0.2 Nucleated RBC % 0.0 Immature Gran # 0.01 Nucleated RBCs # 0.00 Immature Plt Fraction 0.0 INR 1.1 PT Patient/Control Mix 12.0 Sodium 143 Potassium 3.7 Chloride 109 H Carbon Dioxide 25 Anion Gap 12.7 BUN 15 Creatinine 0.70 GFR Calculation 103 BUN/Creatinine Ratio 21.00 H Glucose 75 Calculated Osmolality 284.0 Calcium 8.5 Magnesium Total Bilirubin 0.90 AST 13 ALT 13 Alkaline Phosphatase 81 C-Reactive Protein Total Protein 6.2 L Albumin 3.1 L Globulin 3.1 Albumin/Globulin Ratio 1.0 L Prealbumin Amylase Lipase 07/03/17 07:36 WBC RBC Hgb Hct MCV MCH MCHC RDW Plt Count MPV Neut % (Auto) Lymph % (Auto) [place] % (Auto) Eos % (Auto) Baso % (Auto) Neut # (Auto) Lymph # (Auto) [place] # (Auto) Eos # (Auto) Baso # (Auto) Immature Gran % Nucleated RBC % Immature Gran # Nucleated RBCs # Immature Plt Fraction INR PT Patient/Control Mix Sodium Potassium Chloride Carbon Dioxide Anion Gap BUN Creatinine GFR Calculation BUN/Creatinine Ratio Glucose Calculated Osmolality Calcium Magnesium Total Bilirubin AST ALT Alkaline Phosphatase C-Reactive Protein < 0.29 Total Protein Albumin Globulin Albumin/Globulin Ratio Prealbumin 14.7 L Amylase Lipase
[2017-07-03] MEDS ORDERED: MEPERIDINE 25 MG/1 ML VIAL IV PRN (15:52)
[2017-07-03] MEDS ORDERED: LORazepam 2 MG/1 ML VIAL IV ONE (15:54)
[2017-07-03] MEDS ORDERED: LORazepam 2 MG/1 ML VIAL IV PRN (15:54)
[2017-07-03] MEDS ORDERED: TRACE ELEMENTS (5) 1 ML, MULTIVITAMIN INJ 10 ML in AMINO ACIDS/DEXT/LYTES 5-15% 2,000 ML IV SCH (17:00)
[2017-07-03] MEDS: FAT EMULSION 20% 250 ML IV SCH (17:26)
[2017-07-03] MEDS: INSULIN REGULAR 100 UNIT/ML SUBCUT SCH ×3 (17:45→23:57)
[2017-07-03] MEDS: LEVOFLOXACIN INJ 750 MG in PREMIX 1 EACH IV SCH (18:38)
[2017-07-04] MEDS: metroNIDAZOLE INJ 500 MG in PREMIX 1 EACH IV SCH ×3 (02:15→19:03)
[2017-07-04 03:49] LABS: Calcium 8.8 MG/DL (8.5-10.1); Osmolality,Calculated 281.1 MOS/KG (273-304); Potassium 3.5 MMOL/L (3.5-5.1); Prealbumin 13.2 MG/DL (20-40)
[2017-07-04] MEDS: INSULIN REGULAR 100 UNIT/ML SUBCUT SCH ×3 (06:54→18:40)
[2017-07-04] MEDS: LACTATED RINGERS 1,000 ML IV SCH ×2 (08:06→18:03)
--- NOTE | 2017-07-04 08:51 | Family Practice Progress Note ---
Family Practice - PN: Subj Interval history: Medicine consult: Patient is seen and examined on the third floor. Patient admitted for contained esophageal leak with mediastinal fluid collection , cardiothoracic surgeon, surgery and GI on board presently. Patient is asymptomatic, does not give any history of fever, nausea, vomiting, chest pain, shortness of breath. No abdominal pain, Overall feeling better, presently n.p.o. on TPN. As per patient, scheduled for surgery on July 07 Exam (Progress Note) - Constitutional Vitals: Period Temp Pulse Resp BP Sys/Benitez Pulse Ox Last 24 Hr 97.2 F-98.1 F 55-93 18-20 102-148/69-98 95-98 Exam: GENERAL APPEARANCE: alert and oriented, pleasant, in no acute distress, female patient HEENT: normal. EYES: extraocular movement intact (EOMI), conjunctiva clear, normal. NECK/THYROID: neck supple, full range of motion, no cervical lymphadenopathy, no thyromegaly. HEART: regular rate and rhythm, no murmurs, rubs, gallops. LUNGS: clear to auscultation bilaterally, no wheezes, rales, rhonchi. ABDOMEN: soft, nontender, nondistended, no guarding, no rigidity, no rebound tenderness, no organomegaly , bowel sounds present. EXTREMITIES: no edema. NEUROLOGIC: alert and oriented, cranial nerves 2-12 grossly intact, Results - Labs CBC & BMP: 07/03/17 07:36 07/04/17 02:58 Lab Results: I have reviewed the past 24 hour labs - Impressions Found to have esophageal leak on 07/03/2017. CT chest, Impression: 1. Saccular structure within the lower mediastinum is favored to represent sequelae of leak with communication made with stomach. There is no evidence of gastric mucosa within the wall of this structure. The surrounding wall is fairly uniform in thickness. The communication appears to lack call and posterior to the fundal wrap. Assessment and Plan (1) Dehydration Status: Acute Assessment and plan: Improving, on TPN, IV fluids 2. Esophageal perforation, paraesophageal hernia, n.p.o., on Levaquin, Flagyl, continue Protonix 3. Hypertension, stable. 4. Sheduled surgery on July 07. Continue recommendations as per cardiothoracic surgeon, GI, surgery Current Visit: Yes (2) Esophagus perforation Status: Acute Current Visit: Yes (3) Paraesophageal hernia Status: Acute Current Visit: Yes (4) Hypertension Status: Chronic Current Visit: Yes Qualifiers: Hypertension type: essential hypertension Qualified Code(s): I10 - Essential (primary) hypertension
[2017-07-04] MEDS: PANTOPRAZOLE 40 MG VIAL IV SCH (09:18)
--- NOTE | 2017-07-04 09:30 | Event Note ---
07/04/2017. Patient is afebrile at this time no unusual swallowing problems or nausea or vomiting. Abdomen is soft lungs with few rales but no masses or rhonchi as her breathing difficulty. She is tolerating ice chips and we discontinue that for now. She is scheduled for possible surgery on Thursday.
--- NOTE | 2017-07-04 10:26 | Cardiothoracic Progress Note ---
Assessment and Plan (1) Esophagus perforation Status: Acute Assessment and plan: 72-year-old female with contained distal esophageal leak versus fundal leak. The patient currently is hemodynamically stable and asymptomatic. She continues to be n.p.o. with TPN. I scheduled her for surgery on July 07 to give her a chance for improved nutrition prior to this high-risk surgical intervention. I agree with the current management. Current Visit: Yes Exam (Progress Note) - Constitutional Vitals: Period Temp Pulse Resp BP Sys/Benitez Pulse Ox Last 24 Hr 97.2 F-98.1 F 55-93 18-20 102-148/69-98 95-98 Result/EKG - Labs CBC & BMP: 07/03/17 07:36 07/04/17 02:58 Labs: Laboratory Results - last 24 hr 07/03/17 07/03/17 07/03/17 07:36 17:38 23:10 Sodium Potassium Chloride Carbon Dioxide Anion Gap BUN Creatinine GFR Calculation BUN/Creatinine Ratio Glucose POC Glucose 74 97 Calculated Osmolality Calcium Phosphorus Magnesium C-Reactive Protein < 0.29 Prealbumin 14.7 L Triglycerides 07/04/17 07/04/17 02:58 06:22 Sodium 142 Potassium 3.5 Chloride 108 H Carbon Dioxide 26 Anion Gap 11.5 BUN 9 Creatinine 0.70 GFR Calculation 103 BUN/Creatinine Ratio 12.00 Glucose 105 POC Glucose 120 H Calculated Osmolality 281.1 Calcium 8.8 Phosphorus 3.0 Magnesium 2.0 C-Reactive Protein Prealbumin 13.2 L Triglycerides 148
[2017-07-04] MEDS: FAT EMULSION 20% 250 ML IV SCH (14:38)
[2017-07-04] MEDS: KETOROLAC 30 MG/1 ML VIAL IV PRN (15:13)
[2017-07-04] MEDS ORDERED: DEXTROSE 10% 1,000 ML IV PRN (17:00)
[2017-07-04] MEDS: LEVOFLOXACIN INJ 750 MG in PREMIX 1 EACH IV SCH (20:22)
[2017-07-05] MEDS: INSULIN REGULAR 100 UNIT/ML SUBCUT SCH ×5 (00:29→23:40)
[2017-07-05] MEDS: LACTATED RINGERS 1,000 ML IV SCH ×6 (00:29→23:41)
[2017-07-05] MEDS: metroNIDAZOLE INJ 500 MG in PREMIX 1 EACH IV SCH ×3 (02:22→18:27)
[2017-07-05] MEDS: TRACE ELEMENTS (5) 1 ML, MULTIVITAMIN INJ 10 ML in AMINO ACIDS/DEXT/LYTES 5-15% 2,000 ML IV SCH (03:36)
--- NOTE | 2017-07-05 09:06 | Family Practice Progress Note ---
Family Practice - PN: Subj Interval history: Medicine consult: Patient is seen and examined on the third floor. Patient admitted for contained esophageal leak with mediastinal fluid collection , cardiothoracic surgeon, surgery and GI on board presently. Patient is asymptomatic, n.p.o., on IV fluids/TPN No complaints of fever, nausea, vomiting, chest pain, shortness of breath, abdominal pain. Is passing flatus. Is ambulating as needed in the room. No overnight events reported by the nurse. As per patient, scheduled for surgery on July 07 Exam (Progress Note) - Constitutional Vitals: Period Temp Pulse Resp BP Sys/Benitez Pulse Ox Last 24 Hr 97.2 F-99.5 F 54-86 17-18 101-131/60-78 94-100 Exam: GENERAL APPEARANCE: alert and oriented, pleasant, in no acute distress, female patient HEENT: normal. EYES: extraocular movement intact (EOMI), conjunctiva clear, normal. NECK/THYROID: neck supple, full range of motion, no cervical lymphadenopathy, no thyromegaly. HEART: regular rate and rhythm, no murmurs, rubs, gallops. LUNGS: clear to auscultation bilaterally, no wheezes, rales, rhonchi. ABDOMEN: soft, nontender, nondistended, no guarding, no rigidity, no rebound tenderness, no organomegaly , bowel sounds present. EXTREMITIES: no edema. NEUROLOGIC: alert and oriented, cranial nerves 2-12 grossly intact, Results - Labs CBC & BMP: 07/03/17 07:36 07/04/17 02:58 Lab Results: I have reviewed the past 24 hour labs Assessment and Plan (1) Dehydration Status: Acute Assessment and plan: Improving, n.p.o. presently on TPN, IV fluids 2. Esophageal perforation, paraesophageal hernia, n.p.o., on Levaquin, Flagyl, continue Protonix 3. Hypertension, stable. 4. Sheduled surgery on July 07. Continue recommendations as per cardiothoracic surgeon, GI, surgery Current Visit: Yes (2) Esophagus perforation Status: Acute Current Visit: Yes (3) Paraesophageal hernia Status: Acute Current Visit: Yes (4) Hypertension Status: Chronic Current Visit: Yes Qualifiers: Hypertension type: essential hypertension Qualified Code(s): I10 - Essential (primary) hypertension
[2017-07-05] MEDS: PANTOPRAZOLE 40 MG VIAL IV SCH (10:14)
[2017-07-05] MEDS: FAT EMULSION 20% 250 ML IV SCH (15:39)
[2017-07-05] MEDS: LEVOFLOXACIN INJ 750 MG in PREMIX 1 EACH IV SCH (19:38)
[2017-07-05] MEDS ORDERED: CETIRIZINE 10 MG TABLET PO PRN (19:52)
[2017-07-05] MEDS: KETOROLAC 30 MG/1 ML VIAL IV PRN (21:04)
[2017-07-06] MEDS: TRACE ELEMENTS (5) 1 ML, MULTIVITAMIN INJ 10 ML in AMINO ACIDS/DEXT/LYTES 5-15% 2,000 ML IV SCH ×3 (01:29→17:32)
[2017-07-06] MEDS: metroNIDAZOLE INJ 500 MG in PREMIX 1 EACH IV SCH ×3 (03:04→19:59)
[2017-07-06 04:51] LABS: Basophils % 0.5 % (0.0-0.8); Eosinophils # 0.2 10*3/uL (0.0-0.87); Hematocrit 39.3 VOL% (35.7-47.0); Hemoglobin 13.7 GM/DL (12.0-16.0); Immature Granulocytes % 0.2 %; Immature Granulocytes Absolute 0.01 #; Lymphocytes # 0.9 10*3/uL (1.4-4.0); Lymphocytes % 21.2 % (21.3-54.2); Mean Corpuscular HGB Conc 34.9 GM/DL (32-36); Mean Corpuscular Hemoglobin 30 PG (27-34); Mean Corpuscular Volume 86.8 FL (87-102); Mean Platelet Volume 12.3 FL (9.6-12.0); Monocytes # 0.3 10*3/uL (0.11-0.8); Monocytes % 7.7 % (1.7-12.7); Neutrophils # 2.7 10*3/uL (1.4-7.4); Neutrophils % 65.4 % (38.7-73.9); Platelet Count 126 T/CUMM (130-400); Red Blood Count 4.53 MC/CUMM (3.8-5.5); Red Cell Distribution Width 12.5 % (9.3-17.3); White Blood Count 4.2 T/CUMM (4-12)
[2017-07-06 05:12] LABS: INR 1.1; PT Patient Result 12.2 SECS; Partial Thromboplastin Time 26.8 SECS (0-40)
[2017-07-06 05:29] LABS: Calcium 8.2 MG/DL (8.5-10.1); Magnesium 2.2 MG/DL (1.8-2.4); Osmolality,Calculated 283.1 MOS/KG (273-304); Phosphorous 3.6 MG/DL (2.5-4.9); Potassium 3.6 MMOL/L (3.5-5.1); Prealbumin 13.7 MG/DL (20-40)
[2017-07-06] MEDS: INSULIN REGULAR 100 UNIT/ML SUBCUT SCH ×3 (05:50→17:49)
[2017-07-06] MEDS: LACTATED RINGERS 1,000 ML IV SCH ×3 (06:22→22:49)
[2017-07-06] MEDS: PANTOPRAZOLE 40 MG VIAL IV SCH (08:01)
--- NOTE | 2017-07-06 08:12 | EKG Report ---
Stationary ECG Study [facility] Test Date: 07/06/2017 6:35:56 AM Pat Name: JOESPH GALDAMEZ Department: Room: 316 Gender: F Director Immunology: ИВАН : 1945 Requested by: Diego Licona Order Number: [id number] Reading MD: ANGELICA DOUGLASS Intervals [place] Rate: 64 P: 72 AK: 159 QRS: 85 QRSD: 107 T: 40 QT: 389 QTc: 399 Interpretive Statements SINUS RHYTHM WITH OCCASIONAL VENTRICULAR PREMATURE COMPLEXES MILD NST Electronically Signed On 07-06-17 15:03:46 CDT by ANGELICA DOUGLASS [email or web address]
--- NOTE | 2017-07-06 08:54 | Family Practice Progress Note ---
Family Practice - PN: Subj Interval history: Medicine consult: Patient is seen and examined on the third floor. Awaiting surgery on July 07 Patient is asymptomatic, n.p.o., on IV fluids/TPN, ambulating well No complaints of fever, nausea, vomiting, chest pain, shortness of breath, abdominal pain. Is passing flatus. No overnight events reported by the nurse. Patient admitted for contained esophageal leak with mediastinal fluid collection , cardiothoracic surgeon, surgery and GI on board presently. Exam (Progress Note) - Constitutional Vitals: Period Temp Pulse Resp BP Sys/Benitez Pulse Ox Last 24 Hr 96.2 F-98.2 F 60-66 18-20 104-117/51-71 95-99 Exam: GENERAL APPEARANCE: alert and oriented, pleasant, in no acute distress, female patient HEENT: normal. EYES: extraocular movement intact (EOMI), conjunctiva clear, normal. NECK/THYROID: neck supple, full range of motion, no cervical lymphadenopathy, no thyromegaly. HEART: regular rate and rhythm, no murmurs, rubs, gallops. LUNGS: clear to auscultation bilaterally, no wheezes, rales, rhonchi. ABDOMEN: soft, nontender, nondistended, no guarding, no rigidity, no rebound tenderness, no organomegaly , bowel sounds present. EXTREMITIES: no edema. NEUROLOGIC: alert and oriented, cranial nerves 2-12 grossly intact, Results - Labs CBC & BMP: 07/06/17 04:30 07/06/17 04:30 Lab Results: I have reviewed the past 24 hour labs Assessment and Plan (1) Dehydration Status: Acute Assessment and plan: Improving, n.p.o. presently on TPN, IV fluids 2. Esophageal perforation, paraesophageal hernia, n.p.o., on Levaquin, Flagyl, continue Protonix 3. Hypertension, stable. 4. Scheduled surgery on July 07. Continue recommendations as per cardiothoracic surgeon, GI, surgery Current Visit: Yes (2) Esophagus perforation Status: Acute Current Visit: Yes (3) Paraesophageal hernia Status: Acute Current Visit: Yes (4) Hypertension Status: Chronic Current Visit: Yes Qualifiers: Hypertension type: essential hypertension Qualified Code(s): I10 - Essential (primary) hypertension
--- NOTE | 2017-07-06 09:56 | Gastrointestinal Progress Note ---
Assessment and Plan (1) Dysphagia Status: Suspected Assessment and plan: 07/06-continued n.p.o. with TPN. Esophageal perforation surgery noted to be scheduled for tomorrow. Plan an addendum to followed by Dr. Gutierrez. 07/03-history of paraesophageal hernia repair in December now with inability to swallow 1 week. Findings noted on CT of chest as well as EGD and barium swallow earlier this week. Will discuss case with Dr. Gutierrez and father plan an addendum to follow. Current Visit: No Gastroenterology - PN: Subj Interval history: CC: Dysphagia Patient is seen, awake and alert lying in bed. States that she did not rest well overnight due to constant distractions. She continues on n.p.o. diet with TPN at present time. She denies any pain, nausea or vomiting. She is noted to be scheduled for surgery on tomorrow regarding her esophageal perforation. Abdomen is soft, nontender. ROS: Denies shortness of breath or chest pain Exam (Progress Note) - Constitutional Vitals: Period Temp Pulse Resp BP Sys/Benitez Pulse Ox Last 24 Hr 96.2 F-98.2 F 60-66 18-20 104-117/51-71 95-99 General appearance: normal weight, no acute distress - Head Head exam: Present: normal inspection, normocephalic - Eye Eye exam: Present: other (Lids and conjunctive are unremarkable). Absent: scleral icterus - ENT ENT exam: Present: normal exam, normal oropharynx - Neck Neck exam: Present: normal inspection - Respiratory Respiratory exam: Present: clear to auscultation bilaterally. Absent: rales, rhonchi, wheezes - Cardiovascular Cardiovascular exam: Present: regular rate and rhythm. Absent: diastolic murmur , JVD, systolic murmur - GI/Abdominal GI/Abdominal exam: Present: normal bowel sounds, soft. Absent: ascites, distended, mass, organomegaly, tenderness - Extremities Exam Extremities exam: Present: normal inspection, full ROM - Back Exam Back exam: Present: normal inspection - Neurological Exam Neurological exam: Present: alert, oriented X3 - Psychiatric Psychiatric exam: Present: normal affect, normal mood - Skin Skin exam: Present: normal color, warm, dry Results - Labs CBC & BMP: 07/06/17 04:30 07/06/17 04:30 Lab Results: I have reviewed the past 24 hour labs
--- NOTE | 2017-07-06 11:32 | General Surgery Progress Note ---
Assessment and Plan (1) Dehydration Status: Acute Assessment and plan: The patient appears well-hydrated. She is scheduled for thoracoscopy of possible thoracotomy and drainage of mediastinal fluid collection with possible esophageal stenting in the OR tomorrow. She is also planning to have a feeding gastrojejunostomy tube and I will be available if anything is needed on abdominal surgical revision. Current Visit: Yes Subjective Patient reports: Present: no new complaints, afebrile Exam - Constitutional Vitals: Period Temp Pulse Resp BP Sys/Benitez Pulse Ox Last 24 Hr 96.2 F-98.2 F 60-66 18-20 104-117/51-71 95-96 General appearance: no acute distress, over weight - Head Head exam: Present: normal inspection, normocephalic - Eye Eye exam: Present: EOMI. Absent: scleral icterus Pupils: Present: CHRISTY - ENT ENT exam: Present: normal exam Mouth exam: Present: normal external inspection, normal voice - Neck Neck exam: Present: normal inspection, trachea midline - Respiratory Respiratory exam: Present: clear to auscultation bilaterally. Absent: accessory muscle use, chest wall tenderness - Cardiovascular Cardiovascular exam: Present: RRR. Absent: systolic murmur, tachycardia - GI/Abdominal GI/Abdominal exam: Present: soft. Absent: tenderness, rebound - Extremities Exam Extremities exam: Present: normal inspection, normal capillary refill - Back Exam Back exam: Present: normal inspection - Neurological Exam Neurological exam: Present: alert, oriented X3 Speech: Present: normal - Skin Skin exam: Present: normal color, warm Results - Labs CBC & BMP: 07/06/17 04:30 07/06/17 04:30 - Diagnostic Findings Procedure: Chest x-ray: image reviewed by me (There is still retained barium in the fluid collection in the posterior mediastinum.) Quality Measures - VTE Contraindication to Pharmacological VTE Prophylaxis: High Risk of Bleeding
[2017-07-06] MEDS: FAT EMULSION 20% 250 ML IV SCH (14:17)
[2017-07-06] MEDS: LEVOFLOXACIN INJ 750 MG in PREMIX 1 EACH IV SCH (17:43)
[2017-07-06] MEDS: KETOROLAC 30 MG/1 ML VIAL IV PRN (19:57)
[2017-07-07] MEDS: INSULIN REGULAR 100 UNIT/ML SUBCUT SCH ×4 (00:40→17:32)
[2017-07-07] MEDS: metroNIDAZOLE INJ 500 MG in PREMIX 1 EACH IV SCH ×2 (03:19→16:47)
[2017-07-07] MEDS ORDERED: ACETAMINOPHEN INJ 1,000 MG in PREMIX 1 EACH IV ONE (05:00)
[2017-07-07] MEDS ORDERED: FLUCONAZOLE INJ 200 MG in PREMIX 1 EACH IV ONE (05:00)
[2017-07-07] MEDS ORDERED: CEFUROXIME INJ 1,500 MG in SODIUM CHLORIDE 0.9% 100 ML IV ONE ×2 (05:00→06:00)
[2017-07-07] MEDS ORDERED: VANCOMYCIN INJ 1,000 MG in SODIUM CHLORIDE 0.9% 250 ML IV ONE (05:00)
[2017-07-07] MEDS ORDERED: BUPIVACAINE LIPOSOMAL 20 ML/266 MG VIAL INFILTRAT ONE (05:00)
[2017-07-07] MEDS ORDERED: TISSUE ADHESIVE 1 EACH APPLICATOR TOP ONE (06:04)
[2017-07-07] MEDS ORDERED: BUPIVACAINE LIPOSOMAL 20 ML/266 MG VIAL ONE (06:04)
[2017-07-07 08:43] LABS: Apearance,Urine CLEAR (Clear); Bilirubin,Urine Negative (Negative); Blood, Urine Negative (Negative); Glucose,Urine (UA) Negative (Negative); Ketones,Urine Negative (Negative); Mucus,Urine Occasional /LPF (Occasional); Nitrite,Urine Negative (Negative); Protein,Urine Negative; RBC,Urine 1 /HPF (0-4); Squamous Epithelial Cell,Urine Occasional /HPF (0-10); Urine Color Yellow (Yellow); Urine Specific Gravity 1.008 (1.001-1.035); WBC,Urine <1 /HPF (0-6)
[2017-07-07] MEDS ORDERED: METHYLENE BLUE 10 ML VIAL IV ONE (12:06)
[2017-07-07] MEDS: PANTOPRAZOLE 40 MG VIAL IV SCH (13:45)
[2017-07-07] MEDS: LACTATED RINGERS 1,000 ML IV SCH (13:46)
--- NOTE | 2017-07-07 14:40 | Operative Note ---
Date of procedure: 07/07/17 Pre-op diagnosis: Dysphagia, paraesophageal hernia Procedure: Procedure: Esophagogastroduodenoscopy with percutaneous endoscopic gastrostomy tube placement Brief clinical abstract: 72-year-old female with previous paraesophageal hernia repair has documented recurrence noted at thoracotomy today. I was asked to do intraoperative upper endoscopy to assist with this and also for PEG tube placement. Indication for procedure: Dysphagia, paraesophageal hernia Endoscopic findings:[After informed consent was obtained, the patient was placed in the supine position. Patient had undergone left thoracotomy by Dr. Eber Guillen with repair of recurrent paraesophageal hernia. The gastroscope was inserted in the upper esophagus under direct vision with no resistance encountered. Esophageal mucosa appeared normal with squamocolumnar junction sharply demarcated at the diaphragmatic indentation. The endoscope was advanced in the stomach which was carefully examined including retroflexed view of the cardia and fundus. There was an area of subepithelial hemorrhage in the area of the cardia with no mucosal defect noted. There was some retained vegetable food matter which appeared old with barium coating it noted in the antrum of the stomach. Remainder of the stomach appeared normal. The pyloric channel, duodenal bulb, second and third portion of the duodenum appeared normal. We injected methylene blue solution in the distal esophagus and at the GE junction with no evidence of leak into the mediastinal space. Later in the procedure I returned and reinserted the gastroscope into the antrum of the stomach. Site for gastrostomy tube placement was selected using external indentation and endoscopic transillumination. Sterile field was created over the anterior abdomen. 5 cc of 1% lidocaine was injected subcutaneously down to the gastric wall. An approximately 5 mm superficial transverse incision was made with scalpel. Cook 20 Mal[place] gastrostomy tube was placed with pull technique without difficulty. The tube was secured at the 3.5 cm tate on the skin surface with external bumper applied at that level. A dressing was applied to the site afterwards. She appeared to tolerate the procedure well. Impression: #1 status post paraesophageal hernia repair #2 status post PEG tube placement Recommendations: Follow clinically for now. Plan probable conversion to jejunal tube for enteral feeding in the next 24-48 hours. Anesthesia: GETA Surgeon / Physician: Herve Gutierrez Estimated blood loss: none Specimens: none sent Condition: stable Disposition: PACU Results - Labs CBC & BMP: 07/06/17 04:30 07/06/17 04:30 Discharge Plan - Discharge Medications No Action No Known Home Medications [No Known Home Medications] - Follow Up or Referral - Forms/Instructions
[2017-07-07] MEDS ORDERED: SEVOFLURANE 1 UNIT/15 MINUTE INH ONE (14:54)
[2017-07-07] MEDS ORDERED: ACETAMINOPHEN 1,000 MG/100 ML VIAL IV ONE (14:55)
[2017-07-07] MEDS ORDERED: MIDAZOLAM 2 MG/2 ML VIAL ONE (14:55)
[2017-07-07] MEDS ORDERED: ePHEDrine 50 MG/ML AMP ONE (14:55)
[2017-07-07] MEDS ORDERED: fentaNYL 100 MCG/2 ML VIAL ONE (14:55)
[2017-07-07] MEDS ORDERED: GABAPENTIN 100 MG CAPSULE PO SCH (15:00)
--- NOTE | 2017-07-07 15:33 | XRay Report ---
XR chest 2V Date: 07/06/2017 4:00 AM History: Respiratory preoperative evaluation Comparison: 01/23/2017 Technique: PA and lateral chest Findings: The heart is smaller in size with stable left arm PICC line. Oral contrast in the stomach with 118 mm hiatal hernia. The lungs are overexpanded with chronic scarring with reduced parenchymal findings. Degenerative changes are noted. Impression: 118 mm hiatal hernia with oral contrast in the stomach. COPD with chronic scarring. Stable left arm PICC line. PROCEDURE INTERPRETED AT [facility] DEPARTMENT OF RADIOLOGY Final Report Signed by: Dr. Mellissa Puente
--- NOTE | 2017-07-07 15:36 | XRay Report ---
Portable chest Date: 07/07/2017 Clinical history: Postop Comparison: 07/06/2017 Technique: Portable AP supine chest Findings: The heart is minimally larger in size. Interval left thoracotomy with insertion of 2 chest tubes. One chest tube projects in the medial mid lung zone. The other projects far medially in the left lower lung zone. Stable left arm PICC line. Insertion of right IJ CVP line with tip at junction of SVC and right atrium. Progressive diffuse parenchymal findings with small pleural effusions. Minimal subcutaneous emphysema with no significant pneumothorax. Postoperative findings at the GE junction with apparent hiatal hernia repair. Impression: Interval left thoracotomy with insertion of 2 chest tubes and right IJ CVP line. Stable left arm PICC line. No significant pneumothorax is identified on this supine film with minimal subcutaneous emphysema. The heart is larger in size with progressive diffuse edema/atelectasis with small pleural effusions. Post operative findings at the GE junction with apparent hiatal hernia repair. PROCEDURE INTERPRETED AT [facility] DEPARTMENT OF RADIOLOGY Final Report Signed by: Dr. Mellissa Puente
--- NOTE | 2017-07-07 15:48 | Operative Note ---
Pre-op diagnosis: Recurrent paraesophageal hernia with possible esophageal leak and severe dy Post-op diagnosis: same Procedure: 1. Left posterior lateral muscle-sparing thoracotomy 2. Extensive lysis of adhesions 3. Mediastinal exploration 4. Excision paraesophageal hernia sac 5. Repair of small esophageal muscular tear 6. Reduction of the stomach into the abdomen [paraesophageal hernia] 7. Takedown of toupee fundoplication that was done 6 months ago 8. Primary repair of the diaphragmatic hernia with pledgeted Ethibond stitches 9. Injection of liposomal bupivacaine into the intercostal nerves II, III, IV, V, , VII, VIII 10. Esophagogastroduodenoscopy for diagnostic purposes with injection of methylene Blue 11. Insertion of EGD guided PEG tube Please add modifier for complexity and redo status Findings: This is a 72-year-old patient who had a paraesophageal hernia repair done 6 months ago transabdominally. She lost 30 pounds over the past few months and 2 weeks ago she was not tolerating any food or fluid intake p.o. she was vomiting and regurgitating everything. She presented here at which time an EGD did not find any problems however an CT with contrast showed retained contrast and the chest with possible recurrent posterior paraesophageal hernia and questionable esophageal leak. The patient was maintained on TPN at this time. In the OR I found the paraesophageal hernia had recurred with the fundus of the stomach and the body in the chest. I took down the wrap. There was partial tear in the esophagus that was repaired. The stomach was reduced. The wrap was taken down. I repaired the diaphragmatic rent primarily with Ethibond stitches. An EGD was performed at this point and showed the mucosa to be intact and the esophagus and the stomach with no indication for possible possible tear. It showed the GE junction to be below the diaphragm and the stomach to be in good position. Methylene blue and injection of air both did not show any leakage. Dr. Gutierrez placed the PEG tube EGD guided after I finished my procedure Details of the procedure The patient was brought into the OR placed supine on the OR table and general endotracheal anesthesia was induced without any problems. The patient was then turned right lateral decubitus left side up. The chest was prepped and draped in the usual sterile fashion. Antibiotics were given. Timeout was performed. A posterior lateral incision was made over the seventh rib. The latissimus dorsi muscle was spared and the proximal and distal flaps were developed subcutaneously. I entered the chest through the sixth intercostal space. I shingled the seventh rib. I started by taking down some adhesions. I took down the inferior pulmonary ligament. I then identified what appears to be paraesophageal hernia. I opened the mediastinum anteriorly and posteriorly to the hernia sac. I freed it from the aorta posteriorly and freed from the lung and pericardium anteriorly. I then turned my attention towards freeing it from the right lung and the right chest. This was done using LigaSure. At this point identified the circumference of the esophagus proximally. I inserted a [place] for traction. I then continue to take down adhesions and freed the sac circumferentially. This was done all the way down to the diaphragm. I then started excising the sac and identifying the level of the stomach. I then identified wrap that was done previously. I took the rib down from around the esophagus. I freed down all the adhesions. I started taking down the adhesions between the stomach and the sac and the diaphragm. This proved to be very difficult due to the mesh that was placed at the previous procedure. Circumferential dissection was carried out successfully. At this point I was able to free the stomach completely from the sac and from the diaphragm surrounding it. After freeing it from the esophagus and the previous wrap I reduced the stomach in the abdomen. At this point I noticed a small esophageal incomplete tear that was repaired primarily with PDS stitches. Careful examination of the rest of the esophagus did not show any other lesions. I then proceeded with injection of Exparel into intercostal spaces [address] Gutierrez came in and he introduced the EGD for evaluation and noted no visible tear in the esophagus or the stomach. I asked them to inflate air as well as injection of methylene blue neither of them showed any leak. At this point I started repairing the diaphragm around the esophagus. I placed a total of 5 Ethibond stitches primarily pledgeted repair the diaphragm. I elected not to put a mesh for the possibility of another leak that was not seen with the EGD. The diaphragma was lax enough and was repaired without tension. I placed 2 Ethibond stitches anterior to the esophagus and 3 pledgeted at the Ethibond horizontal mattress posterior to the esophagus. Hemostasis was achieved and I washed the chest thoroughly. I then inserted 3 chest tubes one of them cross the midline to the right chest and 2 into the left chest. The ribs were then approximated with Ethibond. The lung was inflated under direct vision. The fascia was then approximated using PDS. The skin was then closed using Monocryl. All counts were correct at the end of the procedure. Dr. Gutierrez then came in and placed a PEG tube EGD guided as way for gastropexy, with plans to excange it to PEG/J within 24-48 hours. The patient tolerated the procedure very well without any problems. Transferred to PACU in good condition. Anesthesia: GETA Surgeon / Physician: Carlin Jimenez Electric Tape Slitter: Rosalio Chong Estimated blood loss: other (350) Specimens: other (7th rib, culture from pleural fluid) Condition: stable Disposition: PACU Results - Labs CBC & BMP: 07/06/17 04:30 07/06/17 04:30 Discharge Plan - Discharge Medications No Action No Known Home Medications [No Known Home Medications] - Follow Up or Referral - Forms/Instructions
--- NOTE | 2017-07-07 15:59 | Operative Note ---
Date of procedure: 07/07/17 Pre-op diagnosis: recurrent paraesophageal hernia Post-op diagnosis: same Procedure: This is a first grade teacher note for the left posterior lateral muscle-sparing thoracotomy with lysis of adhesions and repair of recurrent diaphragmatic hernia with takedown of posterior fundoplication done by Dr. Jimenez. I was present and scrubbed for the procedure and served as the first grade teacher for this procedures that were performed by Dr. Jimenez. There was a recurrent hiatal hernia with slippage of wrap into the chest. The wrap was taken down and an area on the esophagus was repaired by Dr. Jimenez after the wrap was taken down. EGD showed no evidence of leak and the diaphragmatic hernia was closed with pledgeted Ethibond sutures by Dr. Jimenez. Please see his note for full details of the procedure Anesthesia: MAURICIOA Surgeon / Physician: Carlin Jimenez Cassandra Architect: Rosalio Chong Results - Labs CBC & BMP: 07/06/17 04:30 07/06/17 04:30 Discharge Plan - Discharge Medications No Action No Known Home Medications [No Known Home Medications] - Follow Up or Referral - Forms/Instructions
[2017-07-07 16:38] LABS: Basophils % 0.1 % (0.0-0.8); Eosinophils % 0.1 % (0.00-10.9); Hematocrit 40.6 VOL% (35.7-47.0); Hemoglobin 14.1 GM/DL (12.0-16.0); Immature Granulocytes % 0.1 %; Immature Granulocytes Absolute 0.01 #; Lymphocytes # 0.2 10*3/uL (1.4-4.0); Lymphocytes % 2.6 % (21.3-54.2); Mean Corpuscular HGB Conc 34.7 GM/DL (32-36); Mean Corpuscular Hemoglobin 30 PG (27-34); Mean Corpuscular Volume 87.3 FL (87-102); Monocytes # 0.2 10*3/uL (0.11-0.8); Monocytes % 2.8 % (1.7-12.7); Neutrophils # 6.6 10*3/uL (1.4-7.4); Neutrophils % 94.3 % (38.7-73.9); Platelet Count 130 T/CUMM (130-400); Red Blood Count 4.65 MC/CUMM (3.8-5.5); Red Cell Distribution Width 12.8 % (9.3-17.3); White Blood Count 7.1 T/CUMM (4-12)
[2017-07-07] MEDS: FAT EMULSION 20% 250 ML IV SCH ×3 (16:46→17:00)
[2017-07-07] MEDS: KETOROLAC 15 MG/1 ML VIAL IV SCH ×2 (16:50→22:14)
[2017-07-07] MEDS: POTASSIUM CHLORIDE INJ 10 MEQ in SODIUM CHLORIDE 0.45% 1,000 ML IV SCH ×2 (16:51→23:48)
[2017-07-07 16:57] LABS: Calcium 7.4 MG/DL (8.5-10.1); Osmolality,Calculated 277.2 MOS/KG (273-304); Potassium 3.7 MMOL/L (3.5-5.1)
[2017-07-07] MEDS: TRACE ELEMENTS (5) 1 ML, MULTIVITAMIN INJ 10 ML in AMINO ACIDS/DEXT/LYTES 5-15% 2,000 ML IV SCH ×2 (17:10→18:03)
[2017-07-07] MEDS ORDERED: DEXTROSE 50% 25 GM/50 ML SYRINGE IV PRN (17:23)
[2017-07-07] MEDS ORDERED: GLUCAGON 1 MG VIAL IM PRN (17:23)
--- NOTE | 2017-07-07 17:30 | Anesthesia Post-Op ---
Anesthesia Post OP - Post Ansesthetic Evaluation Patient seen in post op: Yes Resp: within normal limits CV: within normal limits Mental: within normal limits Temp: within normal limits [id number]: within normal limits Nausea and Vomiting: within normal limits Pain: within normal limits
[2017-07-07 18:56] LABS: Lymphocytes 2 % (20-55); Platelet Estimate Decreased; Segmented Neutrophils 96 % (50-85); Total Cells Counted 100
[2017-07-07] MEDS: HYDROmorphone 2 MG/1 ML VIAL IV PRN (19:20)
--- NOTE | 2017-07-07 19:35 | Family Practice Progress Note ---
Family Practice - PN: Subj Interval history: Patient seen this afternoon. She is status post recurrent paraesophageal hernia repair. At this time is stable hemodynamically. Is currently receiving TPN/baseline IV fluids. She arouses easily and is very coherent. Does complain of significant pain and plan on giving her some IV pain medicines at present. Presently he has chest tubes draining on the left. She also has a per epigastric tube in place. Cintron in place and draining clear yellow urine. Will monitor I's and O's closely. Follow along with specialties and do appreciate your assistance on this very difficult case. Exam (Progress Note) - Constitutional Vitals: Period Temp Pulse Resp BP Sys/Benitez Pulse Ox Last 24 Hr 97.0 F-98.5 F 65-97 12-19 107-136/54-94 93-98 Exam: Generally a very well-developed female. Currently on TPN. Is alert and oriented with arousal HEENT pupils are equal reactive to light extraocular movements are intact neck is supple trachea midline Cardiovascular rate is regular no gallop or rub Lungs are generally clear. She does have chest tubes in place and properly functioning. Abdomen is with PEG tube at present. No distention Extremities no clubbing cyanosis or edema. Has compression stockings on Neurologically fully intact, moves upper and lower extremities without difficult Results - Labs CBC & BMP: 07/07/17 16:30 07/07/17 16:30 Assessment and Plan (1) Dehydration Status: Resolved Assessment and plan: 07/03/2017: We are hydrating her at this time at 125 mils an hour Current Visit: Yes (2) Paraesophageal hernia Status: Acute Assessment and plan: 07/03/2017: Appreciate GI and surgical intervention/assessment 07/07/2017 status post recurrent surgical repair. Current Visit: Yes (3) Hiatal hernia Status: Acute Assessment and plan: 07/03/2017: As above. Continue to hold n.p.o. at present and give IV fluids 07/07/2017.: Hopefully this is resolved. Discussed with patient's daughter concerning the situation. Current Visit: No (4) Esophageal stricture Status: Acute Assessment and plan: 07/03/2017: Surgical assistance to evaluate possible options Current Visit: Yes Quality Measures - VTE Contraindication to Pharmacological VTE Prophylaxis: High Risk of Bleeding
[2017-07-07] MEDS: ACETAMINOPHEN INJ 1,000 MG in PREMIX 1 EACH IV SCH (21:55)
[2017-07-07] MEDS: ONDANSETRON 4 MG/2 ML VIAL IV PRN (22:11)
[2017-07-07] MEDS ORDERED: VANCOMYCIN INJ 1,000 MG in SODIUM CHLORIDE 0.9% 250 ML IV SCH (22:44)
[2017-07-07] MEDS: CEFUROXIME INJ 1,500 MG in SODIUM CHLORIDE 0.9% 100 ML IV SCH (22:55)
[2017-07-08] MEDS: INSULIN REGULAR 100 UNIT/ML SUBCUT SCH ×5 (00:04→23:22)
[2017-07-08] MEDS: HYDROmorphone 2 MG/1 ML VIAL IV PRN ×2 (01:43→06:30)
[2017-07-08] MEDS: ACETAMINOPHEN INJ 1,000 MG in PREMIX 1 EACH IV SCH (03:01)
[2017-07-08] MEDS: KETOROLAC 15 MG/1 ML VIAL IV SCH ×4 (03:56→21:26)
[2017-07-08 05:43] LABS: Basophils % 0.1 % (0.0-0.8); Hematocrit 37.6 VOL% (35.7-47.0); Hemoglobin 13.2 GM/DL (12.0-16.0); Immature Granulocytes % 0.3 %; Immature Granulocytes Absolute 0.02 #; Lymphocytes # 0.3 10*3/uL (1.4-4.0); Lymphocytes % 4.1 % (21.3-54.2); Mean Corpuscular HGB Conc 35.1 GM/DL (32-36); Mean Corpuscular Hemoglobin 31 PG (27-34); Mean Platelet Volume 12.7 FL (9.6-12.0); Monocytes # 0.5 10*3/uL (0.11-0.8); Monocytes % 6.4 % (1.7-12.7); Neutrophils # 6.6 10*3/uL (1.4-7.4); Neutrophils % 89.1 % (38.7-73.9); Platelet Count 133 T/CUMM (130-400); Red Blood Count 4.32 MC/CUMM (3.8-5.5); Red Cell Distribution Width 12.8 % (9.3-17.3); White Blood Count 7.4 T/CUMM (4-12)
[2017-07-08 06:19] LABS: Calcium 8.1 MG/DL (8.5-10.1); Potassium 4.2 MMOL/L (3.5-5.1)
[2017-07-08] MEDS: ONDANSETRON 4 MG/2 ML VIAL IV PRN (06:27)
[2017-07-08 06:31] LABS: Band Neutrophils 6 % (0-10); Burr Cells 1+; Howell-Jolly Bodies Few; Lymphocytes 2 % (20-55); Segmented Neutrophils 88 % (50-85); Total Cells Counted 100
[2017-07-08 06:32] LABS: Platelet Estimate Adequate
--- NOTE | 2017-07-08 08:26 | Event Note ---
General Surgery Progress Note Chief complaint This patient is a 72-year-old woman who underwent left posterior lateral muscle- sparing thoracotomy with repair of recurrent paraesophageal hernia and reduction of stomach into the abdominal cavity on 07/07/2017 Interval history The patient is doing well today. She has low output from her chest drains. Her pain overall is fairly well-controlled. She has not gotten up out of bed yet. She is trying to use her incentive spirometer. Physical exam Patient is afebrile with normal vital signs Chest is clear Heart is regular Abdomen is soft and nontender. Percutaneous gastrostomy tube is in place. Extremities with no edema Labs Reviewed Imaging Chest x-ray shows no evidence of recurrent hernia Assessment and plan Continue pain control and incentive spirometry Plan for exchange of gastrostomy tube for gastrojejunostomy tube today Begin mobilizing the patient after endoscopy today Continue DVT chemoprophylaxis
[2017-07-08] MEDS: POTASSIUM CHLORIDE INJ 10 MEQ in SODIUM CHLORIDE 0.45% 1,000 ML IV SCH ×2 (08:30→14:25)
[2017-07-08] MEDS: PANTOPRAZOLE 40 MG VIAL IV SCH (08:37)
--- NOTE | 2017-07-08 08:37 | XRay Report ---
XR chest 1V portable Indication: SOB, chest tubes Comparison: Chest x-ray dated July 07, 2017 Technique: Single frontal view of the chest. Findings: Interval repositioning of the superior left chest tube. 2 chest tubes noted. Venous catheters appear similar in positioning. Trace left pneumothorax noted. Mild subcutaneous emphysema noted within the left neck base and left chest wall which appears mildly improved from comparison exam. Mild bibasilar atelectasis. Chronic change of the lungs. Continued right infrahilar atelectasis/consolidation. The cardiomediastinal silhouette is stable in configuration. IMPRESSION: Trace left pneumothorax noted. Mild subcutaneous emphysema noted within the left neck base and left chest wall which appears mildly improved from comparison exam. Mild bibasilar atelectasis. Continued right infrahilar atelectasis/consolidation. PROCEDURE INTERPRETED AT [facility] DEPARTMENT OF RADIOLOGY Final Report Signed by: Dr Michael Holliday
[2017-07-08] MEDS: ENOXAPARIN 40 MG/0.4 ML SYRINGE SUBCUT SCH (08:42)
[2017-07-08] MEDS ORDERED: ACETAMINOPHEN 500 MG TABLET PO SCH (08:43)
[2017-07-08] MEDS ORDERED: GABAPENTIN 100 MG CAPSULE PO SCH (09:00)
[2017-07-08] MEDS: PROMETHAZINE INJ 12.5 MG in SODIUM CHLORIDE 0.9% 50 ML IV PRN ×2 (09:03→19:17)
[2017-07-08] MEDS: CEFUROXIME INJ 1,500 MG in SODIUM CHLORIDE 0.9% 100 ML IV SCH (09:43)
--- NOTE | 2017-07-08 10:22 | Gastrointestinal Progress Note ---
Assessment and Plan (1) Dysphagia Status: Suspected Assessment and plan: 07/08-postop day 1 noted as below. Pain controlled at this time. Plans at this time for conversion of PEG to jejunostomy tube on tomorrow. Plan an addendum to follow Dr. Gutierrez. 07/06-continued n.p.o. with TPN. Esophageal perforation surgery noted to be scheduled for tomorrow. Plan an addendum to followed by Dr. Gutierrez. 07/03-history of paraesophageal hernia repair in December now with inability to swallow 1 week. Findings noted on CT of chest as well as EGD and barium swallow earlier this week. Will discuss case with Dr. Gutierrez and father plan an addendum to follow. Current Visit: No Gastroenterology - PN: Subj Interval history: CC: Recurrent paraesophageal hernia Patient is seen, awake and alert, in ICU. She is postop day 1 from repair of her paraesophageal hernia. She is also status post PEG placement on yesterday intraoperatively. Chest tubes are patent at this time. She states that her pain is fairly controlled however she did have a reaction to Dilaudid this morning with some confusion and euphoria. Abdomen is soft, mild tenderness. She is noted at this time for exchange of her PEG tube for jejunostomy tube on tomorrow. ROS: Denies shortness of breath or chest pain Exam (Progress Note) - Constitutional Vitals: Period Temp Pulse Resp BP Sys/Benitez Pulse Ox Last 24 Hr 97.0 F-98.2 F 62-97 11-24 98-136/50-94 93-98 General appearance: normal weight, no acute distress - Head Head exam: Present: normal inspection, normocephalic - Eye Eye exam: Present: other (Lids and conjunctive are unremarkable). Absent: scleral icterus - ENT ENT exam: Present: normal exam, normal oropharynx - Neck Neck exam: Present: normal inspection - Respiratory Respiratory exam: Present: clear to auscultation bilaterally. Absent: rales, rhonchi, wheezes - Cardiovascular Cardiovascular exam: Present: regular rate and rhythm. Absent: diastolic murmur , JVD, systolic murmur - GI/Abdominal GI/Abdominal exam: Present: hypoactive bowel sounds, tenderness, soft. Absent: ascites, distended, mass, organomegaly - Extremities Exam Extremities exam: Present: normal inspection, full ROM - Back Exam Back exam: Present: normal inspection - Neurological Exam Neurological exam: Present: alert, oriented X3 - Psychiatric Psychiatric exam: Present: normal affect, normal mood - Skin Skin exam: Present: normal color, warm, dry Results - Labs CBC & BMP: 07/08/17 05:25 07/08/17 05:25 Lab Results: I have reviewed the past 24 hour labs
[2017-07-08] MEDS: MORPHINE 2 MG/1 ML SYRINGE IV PRN ×3 (11:50→23:16)
--- NOTE | 2017-07-08 14:26 | Pathology Report from [facility] ---
[facility] ACCESSION # : [id number] PATIENT NAME : Serena Denton ORDERING DR : Carlin Jimenez MD CLINICAL HX: Esophageal leak vs fundal leak POST-OP DX: Same SPECIMEN INFO: Piece of seventh rib GROSS DESCRIPTION: The specimen is received in formalin labeled SERENA DENTON/7TH RIB consists of 1.7 x 2.0 x 0.8 cm portion of hyperemic guadarrama bone, submitted for gross exam only. DIAGNOSIS FOR SERENA DENTON: Piece of seventh rib, gross only. COLLECTED DATE: 07/07/2017 [facility] REPORT DATE: 07/08/2017 ELECTRONICALLY SIGNED BY: Josiah Camejo M.D. 07/08/2017 - 9:41:45 [facility]
[2017-07-08] MEDS ORDERED: traMADol 50 MG TABLET PO PRN (14:43)
--- NOTE | 2017-07-08 15:36 | Cardiothoracic Progress Note ---
Assessment and Plan (1) Esophagus perforation Status: Acute Assessment and plan: Postoperative day 1 status post left thoracotomy. Redo paraesophageal hernia repair with repair of a complete tear of the esophagus and repair of the diaphragm. Patient is doing very well. Pain is well controlled. Minimal chest tube output. Dr. Gutierrez plans to exchange the PEG into a PEG J tomorrow. Will start feeding the day after. I plan to do an esophagogram on Thursday morning to evaluate the esophagus and the stomach. Meanwhile the patient should remain strict n.p.o. She can get out of bed. I removed the A- line. We can remove the Cintron catheter. I will keep the chest tubes to suction at this point. Will remain in the ICU for close observation over the next 24 hours. Current Visit: Yes Exam (Progress Note) - Constitutional Vitals: Period Temp Pulse Resp BP Sys/Benitez Pulse Ox Last 24 Hr 96.9 F-98.5 F 62-91 11-26 98-136/50-79 92-98 Result/EKG - Labs CBC & BMP: 07/08/17 05:25 07/08/17 05:25 Labs: Laboratory Results - last 24 hr 07/07/17 07/07/17 07/07/17 07:14 16:30 16:30 WBC 7.1 D RBC 4.65 Hgb 14.1 Hct 40.6 MCV 87.3 MCH 30 MCHC 34.7 RDW 12.8 Plt Count 130 MPV 12.0 Neut % (Auto) 94.3 H Lymph % (Auto) 2.6 L [place] % (Auto) 2.8 Eos % (Auto) 0.1 Baso % (Auto) 0.1 Neut # (Auto) 6.6 Lymph # (Auto) 0.2 L [place] # (Auto) 0.2 Eos # (Auto) 0.0 Baso # (Auto) 0.0 Total Counted 100 Immature Gran % 0.1 Nucleated RBC % 0.0 Immature Gran # 0.01 Segmented Neutrophils 96 H Band Neutrophils Lymphocytes 2 L Monocytes 2 Nucleated RBCs # 0.00 Platelet Estimate Decreased Immature Plt Fraction 0.0 Pappenheimer Bodies [employer] Supervisor Gage-Shannon Bodies [place] Cells Sodium 134 L Potassium 3.7 Chloride 106 Carbon Dioxide 22 Anion Gap 9.7 BUN 13 Creatinine 0.60 GFR Calculation 108 BUN/Creatinine Ratio 21.00 H Glucose 284 H POC Glucose Calculated Osmolality 277.2 Calcium 7.4 L Crossmatch See Detail 07/07/17 07/08/17 07/08/17 23:29 05:25 05:25 WBC 7.4 RBC 4.32 Hgb 13.2 Hct 37.6 MCV 87.0 MCH 31 MCHC 35.1 RDW 12.8 Plt Count 133 MPV 12.7 H Neut % (Auto) 89.1 H Lymph % (Auto) 4.1 L [place] % (Auto) 6.4 Eos % (Auto) 0.0 Baso % (Auto) 0.1 Neut # (Auto) 6.6 Lymph # (Auto) 0.3 L [place] # (Auto) 0.5 Eos # (Auto) 0.0 Baso # (Auto) 0.0 Total Counted 100 Immature Gran % 0.3 Nucleated RBC % 0.0 Immature Gran # 0.02 Segmented Neutrophils 88 H Band Neutrophils 6 Lymphocytes 2 L Monocytes 4 Nucleated RBCs # 0.00 Platelet Estimate Adequate Immature Plt Fraction 0.0 Pappenheimer Bodies Gage-Shannon Bodies Few Sofy Cells 1+ Sodium 136 Potassium 4.2 Chloride 107 Carbon Dioxide 21 Anion Gap 12.2 BUN 15 Creatinine 0.60 GFR Calculation 108 BUN/Creatinine Ratio 25.00 H Glucose 288 H POC Glucose 300 H Calculated Osmolality 283.0 Calcium 8.1 L Crossmatch 07/08/17 07/08/17 05:34 12:38 WBC RBC Hgb Hct MCV MCH MCHC RDW Plt Count MPV Neut % (Auto) Lymph % (Auto) [place] % (Auto) Eos % (Auto) Baso % (Auto) Neut # (Auto) Lymph # (Auto) [place] # (Auto) Eos # (Auto) Baso # (Auto) Total Counted Immature Gran % Nucleated RBC % Immature Gran # Segmented Neutrophils Band Neutrophils Lymphocytes Monocytes Nucleated RBCs # Platelet Estimate Immature Plt Fraction Pappenheimer Bodies Gage-Shannon Bodies [place] Cells Sodium Potassium Chloride Carbon Dioxide Anion Gap BUN Creatinine GFR Calculation BUN/Creatinine Ratio Glucose POC Glucose 313 H 186 H Calculated Osmolality Calcium Crossmatch Quality Measures - VTE Contraindication to Pharmacological VTE Prophylaxis: High Risk of Bleeding
[2017-07-08] MEDS: TRACE ELEMENTS (5) 1 ML, MULTIVITAMIN INJ 10 ML in AMINO ACIDS/DEXT/LYTES 5-15% 2,000 ML IV SCH (16:09)
[2017-07-08] MEDS: FAT EMULSION 20% 250 ML IV SCH (16:10)
[2017-07-09] MEDS: POTASSIUM CHLORIDE INJ 10 MEQ in SODIUM CHLORIDE 0.45% 1,000 ML IV SCH ×3 (00:21→15:02)
[2017-07-09] MEDS: KETOROLAC 15 MG/1 ML VIAL IV SCH ×2 (03:10→09:49)
[2017-07-09 05:31] LABS: Basophils % 0.3 % (0.0-0.8); Eosinophils # 0.1 10*3/uL (0.0-0.87); Eosinophils % 0.9 % (0.00-10.9); Hemoglobin 12.1 GM/DL (12.0-16.0); Immature Granulocytes % 0.5 %; Immature Granulocytes Absolute 0.03 #; Lymphocytes # 0.8 10*3/uL (1.4-4.0); Lymphocytes % 12.1 % (21.3-54.2); Mean Corpuscular HGB Conc 33.6 GM/DL (32-36); Mean Corpuscular Hemoglobin 30 PG (27-34); Mean Corpuscular Volume 89.3 FL (87-102); Mean Platelet Volume 12.8 FL (9.6-12.0); Monocytes # 0.6 10*3/uL (0.11-0.8); Monocytes % 9.6 % (1.7-12.7); Neutrophils # 4.9 10*3/uL (1.4-7.4); Neutrophils % 76.6 % (38.7-73.9); Platelet Count 147 T/CUMM (130-400); Red Blood Count 4.03 MC/CUMM (3.8-5.5); Red Cell Distribution Width 13.3 % (9.3-17.3); White Blood Count 6.4 T/CUMM (4-12)
[2017-07-09] MEDS: MORPHINE 2 MG/1 ML SYRINGE IV PRN ×3 (05:32→18:53)
[2017-07-09 06:04] LABS: Calcium 8.1 MG/DL (8.5-10.1); Osmolality,Calculated 284.4 MOS/KG (273-304); Potassium 4.2 MMOL/L (3.5-5.1)
[2017-07-09] MEDS: INSULIN REGULAR 100 UNIT/ML SUBCUT SCH ×3 (06:11→18:44)
--- NOTE | 2017-07-09 07:20 | XRay Report ---
XR chest 2V Indication: Postop evaluation. Chest 2 views: Comparison yesterday shows stable right IJ central line, left arm PICC line, 2 left-sided chest tubes and a third chest tube crosses midline into the right lung base, normal heart size and continued significantly coarsened interstitial markings of the lungs. No new opacities are seen. Overall, lungs are slightly better aerated than previous. No pneumothorax seen. Subcutaneous emphysema left chest wall has increased slightly. Impression: Slightly improved aeration of the lungs with increased subcutaneous emphysema left chest wall. Stable lines and tubes as described. PROCEDURE INTERPRETED AT [facility] DEPARTMENT OF RADIOLOGY Final Report Signed by: Rufino Sanchez M.D.
[2017-07-09] MEDS: PANTOPRAZOLE 40 MG VIAL IV SCH (09:45)
[2017-07-09] MEDS ORDERED: PROPOFOL 200 MG/20 ML VIAL IV ONE (13:24)
[2017-07-09] MEDS ORDERED: LIDOCAINE 1% 5 ML VIAL ONE (13:24)
--- NOTE | 2017-07-09 13:25 | Event Note ---
General Surgery Progress Note Chief complaint This patient is a 72-year-old woman who underwent left posterior lateral muscle- sparing thoracotomy with repair of recurrent paraesophageal hernia and reduction of stomach into the abdominal cavity on 07/07/2017 Interval history No events overnight. Pain is worse but patient is able to get up in a chair and use her incentive spirometer. Physical exam Patient is afebrile with normal vital signs Chest is clear Heart is regular Abdomen is soft and nontender. Percutaneous gastrostomy tube is in place. Extremities with no edema Labs Reviewed Assessment and plan Continue pain control and incentive spirometry Plan for exchange of gastrostomy tube for gastrojejunostomy tube today
--- NOTE | 2017-07-09 13:48 | History and Physical Update ---
History and Physical Update - History and Physical H&P was reviewed, the patient examined and there: are no changes in the patients condition since last H&P was completed. - Physical Exam Mental Status: alert and oriented Heart: regular rate and rhythm Lung: clear to auscultation Abdomen: within normal limits Vitals: within normal limits
--- NOTE | 2017-07-09 14:01 | Operative Note ---
Date of procedure: 07/09/17 Pre-op diagnosis: Inability to eat Procedure: Procedure: Esophagogastroduodenoscopy with jejunal feeding tube placement Brief clinical abstract: 72-year-old female is post thoracotomy with paraesophageal hernia repair 2 days ago. PEG tube was placed at that time. She now presents for jejunal feeding tube placement via her PEG. Indication for procedure: Inability to eat, nutritional support Endoscopic findings:[After informed consent was obtained, the patient was placed in the left lateral decubitus position. The gastroscope was inserted in the upper esophagus under direct vision with no resistance encountered. Esophageal mucosa appeared normal with squamocolumnar junction sharply demarcated above a small 1 cm hiatal. The endoscope was advanced in the stomach which was carefully examined including retroflexed view of the cardia and fundus. There was some retained food material in the body the stomach. No mucosal abnormalities were seen in the stomach. PEG site appeared normal. External portion of the PEG tube was cut off at the 10 cm tate. Polypectomy snare was advanced through the PEG tube and the endoscope advanced through the snare. The pyloric channel, duodenal bulb, second, third, and fourth portion of duodenum appeared normal. First portion of the jejunum was examined beyond the ligament of Treitz and appeared normal. 0.035 inch guidewire was advanced through the endoscope into the jejunum with the endoscope withdrawn back into the stomach proximal to the snare opening leaving the wire in the jejunum. The wire was grasped with snare and pulled back through the PEG tube. The proximal portion of the tube was then pulled out of the scope. Cook gastrojejunostomy tube was then advanced over the wire under endoscopic visualization from the gastric side. The jejunal tube was secured to the PEG tube externally. No looping was noted in the stomach with it appearing to be in good position. She appeared to tolerate the procedure well. Impression: #1 retained food material in stomach #2 tiny hiatal hernia #3 status post jejunal feeding tube placement via PEG tube Recommendations: May feed through jejunal tube. Can use liquid medications through jejunal tube but no crushed medication/slurry. Anesthesia: MAC Surgeon / Physician: Herve Gutierrez Estimated blood loss: none Specimens: none sent Condition: stable Disposition: no change Results - Labs CBC & BMP: 07/09/17 04:55 07/09/17 04:55 Discharge Plan - Discharge Medications No Action No Known Home Medications [No Known Home Medications] - Follow Up or Referral - Forms/Instructions
--- NOTE | 2017-07-09 14:34 | Cardiothoracic Progress Note ---
Assessment and Plan (1) Esophagus perforation Status: Acute Assessment and plan: Postoperative day 2 status post left thoracotomy. Redo paraesophageal hernia repair with repair of a complete tear of the esophagus and repair of the diaphragm. Patient is doing very well. Pain is well controlled. Minimal chest tube output. Dr. Gutierrez plans to exchange the PEG into a PEG J today. Will start feeding after the procedure. I plan to do an esophagogram on Thursday morning to evaluate the esophagus and the stomach. Meanwhile the patient should remain strict n.p.o. She can get out of bed. Current Visit: Yes Exam (Progress Note) - Constitutional Vitals: Period Temp Pulse Resp BP Sys/Benitez Pulse Ox Last 24 Hr 97.1 F-98.4 F 75-99 15-30 85-137/51-88 93-99 Result/EKG - Labs CBC & BMP: 07/09/17 04:55 07/09/17 04:55 Labs: Laboratory Results - last 24 hr 07/08/17 07/08/17 07/09/17 17:51 23:09 04:55 WBC 6.4 RBC 4.03 Hgb 12.1 Hct 36.0 MCV 89.3 MCH 30 MCHC 33.6 RDW 13.3 Plt Count 147 MPV 12.8 H Neut % (Auto) 76.6 H Lymph % (Auto) 12.1 L [place] % (Auto) 9.6 Eos % (Auto) 0.9 Baso % (Auto) 0.3 Neut # (Auto) 4.9 Lymph # (Auto) 0.8 L [place] # (Auto) 0.6 Eos # (Auto) 0.1 Baso # (Auto) 0.0 Immature Gran % 0.5 Nucleated RBC % 0.0 Immature Gran # 0.03 Nucleated RBCs # 0.00 Immature Plt Fraction 0.0 Sodium Potassium Chloride Carbon Dioxide Anion Gap BUN Creatinine GFR Calculation BUN/Creatinine Ratio Glucose POC Glucose 151 H 132 H Calculated Osmolality Calcium 07/09/17 07/09/17 07/09/17 04:55 06:06 12:48 WBC RBC Hgb Hct MCV MCH MCHC RDW Plt Count MPV Neut % (Auto) Lymph % (Auto) [place] % (Auto) Eos % (Auto) Baso % (Auto) Neut # (Auto) Lymph # (Auto) [place] # (Auto) Eos # (Auto) Baso # (Auto) Immature Gran % Nucleated RBC % Immature Gran # Nucleated RBCs # Immature Plt Fraction Sodium 140 Potassium 4.2 Chloride 108 H Carbon Dioxide 27 Anion Gap 9.2 BUN 22 H Creatinine 0.60 GFR Calculation 108 BUN/Creatinine Ratio 36.00 H Glucose 151 H POC Glucose 135 H 110 H Calculated Osmolality 284.4 Calcium 8.1 L Quality Measures - VTE Contraindication to Pharmacological VTE Prophylaxis: High Risk of Bleeding
[2017-07-09] MEDS: KETOROLAC 30 MG/1 ML VIAL IV SCH ×2 (15:01→21:32)
[2017-07-09] MEDS: HYDROcod/ACETAMIN 7.5-325 MG/15 ML UDCUP PO PRN (15:01)
[2017-07-09] MEDS: PROMETHAZINE INJ 12.5 MG in SODIUM CHLORIDE 0.9% 50 ML IV PRN (15:02)
[2017-07-09] MEDS: TRACE ELEMENTS (5) 1 ML, MULTIVITAMIN INJ 10 ML in AMINO ACIDS/DEXT/LYTES 5-15% 2,000 ML IV SCH (16:01)
[2017-07-09] MEDS: FAT EMULSION 20% 250 ML IV SCH (17:30)
[2017-07-10] MEDS: INSULIN REGULAR 100 UNIT/ML SUBCUT SCH ×5 (01:19→23:35)
[2017-07-10] MEDS ORDERED: CELECOXIB 200 MG CAPSULE PO SCH (02:43)
[2017-07-10] MEDS: KETOROLAC 30 MG/1 ML VIAL IV SCH ×3 (03:52→15:14)
[2017-07-10] MEDS: POTASSIUM CHLORIDE INJ 10 MEQ in SODIUM CHLORIDE 0.45% 1,000 ML IV SCH ×3 (04:05→23:48)
[2017-07-10 04:26] LABS: Basophils % 0.5 % (0.0-0.8); Eosinophils # 0.3 10*3/uL (0.0-0.87); Eosinophils % 4.6 % (0.00-10.9); Hematocrit 33.1 VOL% (35.7-47.0); Hemoglobin 11.2 GM/DL (12.0-16.0); Immature Granulocytes % 0.2 %; Immature Granulocytes Absolute 0.01 #; Lymphocytes % 17.8 % (21.3-54.2); Mean Corpuscular HGB Conc 33.8 GM/DL (32-36); Mean Corpuscular Hemoglobin 31 PG (27-34); Mean Corpuscular Volume 90.9 FL (87-102); Mean Platelet Volume 12.3 FL (9.6-12.0); Monocytes # 0.7 10*3/uL (0.11-0.8); Monocytes % 13.2 % (1.7-12.7); Neutrophils # 3.5 10*3/uL (1.4-7.4); Neutrophils % 63.7 % (38.7-73.9); Platelet Count 146 T/CUMM (130-400); Red Blood Count 3.64 MC/CUMM (3.8-5.5); Red Cell Distribution Width 13.5 % (9.3-17.3); White Blood Count 5.5 T/CUMM (4-12)
[2017-07-10 04:48] LABS: Magnesium 2.3 MG/DL (1.8-2.4); Phosphorous 2.9 MG/DL (2.5-4.9); Prealbumin 7.8 MG/DL (20-40)
[2017-07-10 04:56] LABS: Calcium 7.8 MG/DL (8.5-10.1); Osmolality,Calculated 284.3 MOS/KG (273-304); Potassium 4.4 MMOL/L (3.5-5.1)
--- NOTE | 2017-07-10 07:47 | XRay Report ---
XR chest 2V Indication: Thoracic surgery Comparison: Chest x-ray dated July 09, 2017 Technique: Frontal and lateral views of the chest. Findings: Lines and tubes appear grossly unchanged. The cardiomediastinal silhouette is stable in configuration. Continued cardiomegaly. Continued opacification within the left mid lung and bilateral lung bases. Stable to mildly improved subcutaneous emphysema within the left chest wall. Mildly increased right apical pneumothorax. Grossly stable trace left apical pneumothorax. Osseous structures appear grossly unchanged. IMPRESSION: As above. PROCEDURE INTERPRETED AT [facility] DEPARTMENT OF RADIOLOGY Final Report Signed by: Dr Michael Holliday
[2017-07-10] MEDS: PANTOPRAZOLE 40 MG VIAL IV SCH (08:35)
[2017-07-10] MEDS: ENOXAPARIN 40 MG/0.4 ML SYRINGE SUBCUT SCH (08:36)
--- NOTE | 2017-07-10 08:41 | Event Note ---
General Surgery Progress Note Chief complaint This patient is a 72-year-old woman who underwent left posterior lateral muscle- sparing thoracotomy with repair of recurrent paraesophageal hernia and reduction of stomach into the abdominal cavity on 07/07/2017 Interval history No events overnight. The patient has a lot of concern about the behavior of the ICU staff overnight. She expressed this to me and I listened attentively. I did discuss this with the nurses who stated that she was having headaches and even the regular tone of voice was causing issues that made her feel like people were yelling. She also had an episode where she urinated on the floor after coming back from her x-ray and is having some atypical activity and behavior overall that may be consistent with some ICU delirium. She is awake and alert this morning and oriented to person place and time she is urinating in a diaper now. The percutaneous gastrostomy tube was transitioned to a gastrojejunostomy tube yesterday. Physical exam Patient is afebrile with normal vital signs Chest is clear Heart is regular Abdomen is soft and nontender. Percutaneous gastrojejunostomy tube is in place. Extremities with no edema Labs Reviewed Assessment and plan Continue pain control and incentive spirometry gastrograffin esophagram today transfer to floor bed
--- NOTE | 2017-07-10 08:55 | Gastrointestinal Progress Note ---
Assessment and Plan (1) Dysphagia Status: Suspected Assessment and plan: 07/10-postop day 2. Increased soreness control by pain medication. Remains n.p.o. until Gastrografin esophagram today. J-tube placement on yesterday. Plan an addendum to followed by Dr. Gutierrez 07/08-postop day 1 noted as below. Pain controlled at this time. Plans at this time for conversion of PEG to jejunostomy tube on tomorrow. Plan an addendum to follow Dr. Gutierrez. 07/06-continued n.p.o. with TPN. Esophageal perforation surgery noted to be scheduled for tomorrow. Plan an addendum to followed by Dr. Gutierrez. 07/03-history of paraesophageal hernia repair in December now with inability to swallow 1 week. Findings noted on CT of chest as well as EGD and barium swallow earlier this week. Will discuss case with Dr. Gutierrez and father plan an addendum to follow. Current Visit: No Gastroenterology - PN: Subj Interval history: CC: Paraesophageal hernia repair Patient is seen, asleep, however arouses easily to verbal stimuli. States that she did rest well overnight however she is complaining of some increased abdominal discomfort today. She denies any nausea or vomiting associated with this. Jejunal feeding tube placement on yesterday via PEG. She did well postprocedure. She is for a Gastrografin esophagogram this morning. Abdomen is soft, tender to palpation. She is afebrile. ROS: Denies shortness of breath chest pain Exam (Progress Note) - Constitutional Vitals: Period Temp Pulse Resp BP Sys/Benitez Pulse Ox Last 24 Hr 96.9 F-97.5 F 78-88 13-30 96-133/43-111 89-99 General appearance: normal weight, no acute distress - Head Head exam: Present: normal inspection, normocephalic - Eye Eye exam: Present: other (Lids and conjunctivae are unremarkable). Absent: scleral icterus - ENT ENT exam: Present: normal exam, normal oropharynx - Neck Neck exam: Present: normal inspection - Respiratory Respiratory exam: Present: clear to auscultation bilaterally. Absent: rales, rhonchi, wheezes - Cardiovascular Cardiovascular exam: Present: regular rate and rhythm. Absent: diastolic murmur , JVD, systolic murmur, tachycardia - GI/Abdominal GI/Abdominal exam: Present: normal bowel sounds, tenderness, soft. Absent: ascites, distended, mass, organomegaly - Extremities Exam Extremities exam: Present: normal inspection, full ROM - Back Exam Back exam: Present: normal inspection - Neurological Exam Neurological exam: Present: alert, oriented X3 - Psychiatric Psychiatric exam: Present: normal affect, normal mood - Skin Skin exam: Present: normal color, warm, dry Results - Labs CBC & BMP: 07/10/17 04:05 07/10/17 04:05 Lab Results: I have reviewed the past 24 hour labs
[2017-07-10] MEDS ORDERED: GABAPENTIN 50 MG/ML 30 ML/BOTTLE PO SCH (09:00)
[2017-07-10] MEDS: GABAPENTIN 50 MG/ML 30 ML/BOTTLE PER TUBE SCH ×3 (09:31→21:24)
--- NOTE | 2017-07-10 12:32 | Fluoroscopy Report ---
FL esophagram w gastrografin Indication: Postsurgical paraesophageal hernia repair Comparison: None Technique: Gastrografin swallow was performed under fluoroscopic guidance after oral ingestion of Gastrografin. 90 total images. Fluoroscopy time 2.2 minutes. Findings: Images demonstrate evidence of prior gastroesophageal fundoplication procedure. No definite evidence of contrast leak. Gastroesophageal reflux noted to the level of the mid thoracic spine. IMPRESSION: As above. PROCEDURE INTERPRETED AT [facility] DEPARTMENT OF RADIOLOGY Final Report Signed by: Dr Michael Holliday
--- NOTE | 2017-07-10 14:11 | Cardiothoracic Progress Note ---
Assessment and Plan (1) Esophagus perforation Status: Acute Assessment and plan: Postoperative day 3 status post left thoracotomy. Redo paraesophageal hernia repair with repair of a complete tear of the esophagus and repair of the diaphragm. Patient is doing very well. Pain is well controlled. Minimal chest tube output. Esophagogram today showed no esophageal leak. We will start the patient on clear liquid diet. Will start her on tube feeds as well. Eventually will plan to discharge the patient on full liquid diet and cycled tube feeds at night. We will start removing chest tubes tomorrow.. Current Visit: Yes Exam (Progress Note) - Constitutional Vitals: Period Temp Pulse Resp BP Sys/Benitez Pulse Ox Last 24 Hr 96.9 F-97.6 F 77-88 13-30 98-139/43-111 89-99 Result/EKG - Labs CBC & BMP: 07/10/17 04:05 07/10/17 04:05 Labs: Laboratory Results - last 24 hr 07/09/17 07/10/17 07/10/17 18:29 00:16 04:05 WBC 5.5 RBC 3.64 L Hgb 11.2 L Hct 33.1 L MCV 90.9 MCH 31 MCHC 33.8 RDW 13.5 Plt Count 146 MPV 12.3 H Neut % (Auto) 63.7 Lymph % (Auto) 17.8 L [place] % (Auto) 13.2 H Eos % (Auto) 4.6 Baso % (Auto) 0.5 Neut # (Auto) 3.5 Lymph # (Auto) 1.0 L [place] # (Auto) 0.7 Eos # (Auto) 0.3 Baso # (Auto) 0.0 Immature Gran % 0.2 Nucleated RBC % 0.0 Immature Gran # 0.01 Nucleated RBCs # 0.00 Immature Plt Fraction 0.0 Sodium Potassium Chloride Carbon Dioxide Anion Gap BUN Creatinine GFR Calculation BUN/Creatinine Ratio Glucose POC Glucose 93 130 H Calculated Osmolality Calcium Phosphorus Magnesium Prealbumin 07/10/17 07/10/17 07/10/17 04:05 04:05 12:54 WBC RBC Hgb Hct MCV MCH MCHC RDW Plt Count MPV Neut % (Auto) Lymph % (Auto) [place] % (Auto) Eos % (Auto) Baso % (Auto) Neut # (Auto) Lymph # (Auto) [place] # (Auto) Eos # (Auto) Baso # (Auto) Immature Gran % Nucleated RBC % Immature Gran # Nucleated RBCs # Immature Plt Fraction Sodium 141 Potassium 4.4 Chloride 107 Carbon Dioxide 28 Anion Gap 10.4 BUN 22 H Creatinine 0.50 L GFR Calculation 118 BUN/Creatinine Ratio 44.00 H Glucose 120 H POC Glucose 144 H Calculated Osmolality 284.3 Calcium 7.8 L Phosphorus 2.9 Magnesium 2.3 Prealbumin 7.8 L Quality Measures - VTE Contraindication to Pharmacological VTE Prophylaxis: High Risk of Bleeding
[2017-07-10] MEDS: ACETAMINOPHEN 325 MG/10.15 ML UDCUP PER TUBE SCH ×2 (15:10→21:18)
[2017-07-10] MEDS: METOCLOPRAMIDE 10 MG/2 ML VIAL IV SCH (21:26)
[2017-07-11] MEDS: ACETAMINOPHEN 325 MG/10.15 ML UDCUP PER TUBE SCH ×4 (03:18→21:39)
[2017-07-11] MEDS: HYDROcod/ACETAMIN 7.5-325 MG/15 ML UDCUP PO PRN ×3 (03:59→21:34)
[2017-07-11] MEDS: METOCLOPRAMIDE 10 MG/2 ML VIAL IV SCH ×3 (06:10→21:34)
[2017-07-11] MEDS: INSULIN REGULAR 100 UNIT/ML SUBCUT SCH ×3 (06:12→18:12)
[2017-07-11] MEDS: GABAPENTIN 50 MG/ML 30 ML/BOTTLE PER TUBE SCH ×3 (08:32→21:33)
[2017-07-11] MEDS: PANTOPRAZOLE 40 MG VIAL IV SCH (08:32)
[2017-07-11] MEDS: ENOXAPARIN 40 MG/0.4 ML SYRINGE SUBCUT SCH (08:32)
--- NOTE | 2017-07-11 10:03 | Event Note ---
Patient has no complaints. She is tolerating liquids without dysphasia. Swallow yesterday was negative. I will leave decisions about postoperative care to Dr. Jimenez.
[2017-07-11 11:38] LABS: Basophils % 0.4 % (0.0-0.8); Eosinophils # 0.3 10*3/uL (0.0-0.87); Eosinophils % 6.5 % (0.00-10.9); Hemoglobin 11.2 GM/DL (12.0-16.0); Immature Granulocytes % 0.4 %; Immature Granulocytes Absolute 0.02 #; Lymphocytes % 19.4 % (21.3-54.2); Mean Corpuscular HGB Conc 32.9 GM/DL (32-36); Mean Corpuscular Hemoglobin 30 PG (27-34); Mean Corpuscular Volume 91.4 FL (87-102); Mean Platelet Volume 11.2 FL (9.6-12.0); Monocytes # 0.6 10*3/uL (0.11-0.8); Monocytes % 12.7 % (1.7-12.7); Neutrophils % 60.6 % (38.7-73.9); Platelet Count 191 T/CUMM (130-400); Red Blood Count 3.72 MC/CUMM (3.8-5.5); Red Cell Distribution Width 13.3 % (9.3-17.3); White Blood Count 4.9 T/CUMM (4-12)
[2017-07-11 12:07] LABS: Magnesium 2.3 MG/DL (1.8-2.4); Osmolality,Calculated 283.3 MOS/KG (273-304); Potassium 4.5 MMOL/L (3.5-5.1)
--- NOTE | 2017-07-11 15:47 | Cardiothoracic Progress Note ---
Assessment and Plan (1) Esophagus perforation Status: Acute Assessment and plan: Postoperative day 4 status post left thoracotomy. Redo paraesophageal hernia repair with repair of a complete tear of the esophagus and repair of the diaphragm. Patient is doing very well. Pain is well controlled. Minimal chest tube output. Esophagogram showed no esophageal leak. We will start the patient on clear liquid diet. She tolerated the diet without any problems. We will keep her on liquid diet for the moment. Current Visit: Yes Exam (Progress Note) - Constitutional Vitals: Period Temp Pulse Resp BP Sys/Benitez Pulse Ox Last 24 Hr 96.9 F-98.2 F 71-91 14-26 103-178/58-94 94-97 Result/EKG - Labs CBC & BMP: 07/11/17 11:32 07/11/17 11:31 Labs: Laboratory Results - last 24 hr 07/10/17 07/10/17 07/11/17 18:44 23:29 05:37 WBC RBC Hgb Hct MCV MCH MCHC RDW Plt Count MPV Neut % (Auto) Lymph % (Auto) [place] % (Auto) Eos % (Auto) Baso % (Auto) Neut # (Auto) Lymph # (Auto) [place] # (Auto) Eos # (Auto) Baso # (Auto) Immature Gran % Nucleated RBC % Immature Gran # Nucleated RBCs # Immature Plt Fraction Sodium Potassium Chloride Carbon Dioxide Anion Gap BUN Creatinine GFR Calculation BUN/Creatinine Ratio Glucose POC Glucose 117 H 130 H 169 H Calculated Osmolality Calcium Magnesium 07/11/17 07/11/17 07/11/17 11:31 11:32 12:12 WBC 4.9 RBC 3.72 L Hgb 11.2 L Hct 34.0 L MCV 91.4 MCH 30 MCHC 32.9 RDW 13.3 Plt Count 191 D MPV 11.2 Neut % (Auto) 60.6 Lymph % (Auto) 19.4 L [place] % (Auto) 12.7 Eos % (Auto) 6.5 Baso % (Auto) 0.4 Neut # (Auto) 3.0 Lymph # (Auto) 1.0 L [place] # (Auto) 0.6 Eos # (Auto) 0.3 Baso # (Auto) 0.0 Immature Gran % 0.4 Nucleated RBC % 0.0 Immature Gran # 0.02 Nucleated RBCs # 0.00 Immature Plt Fraction 0.0 Sodium 141 Potassium 4.5 Chloride 105 Carbon Dioxide 30 Anion Gap 10.5 BUN 20 H Creatinine 0.50 L GFR Calculation 120 BUN/Creatinine Ratio 40.00 H Glucose 104 POC Glucose 131 H Calculated Osmolality 283.3 Calcium 8.0 L Magnesium 2.3 Quality Measures - VTE Contraindication to Pharmacological VTE Prophylaxis: High Risk of Bleeding
[2017-07-12] MEDS: INSULIN REGULAR 100 UNIT/ML SUBCUT SCH ×4 (00:52→17:19)
[2017-07-12] MEDS: ACETAMINOPHEN 325 MG/10.15 ML UDCUP PER TUBE SCH ×3 (03:05→16:04)
[2017-07-12] MEDS: METOCLOPRAMIDE 10 MG/2 ML VIAL IV SCH ×3 (06:33→21:53)
[2017-07-12] MEDS: PANTOPRAZOLE 40 MG VIAL IV SCH (08:53)
[2017-07-12] MEDS: ENOXAPARIN 40 MG/0.4 ML SYRINGE SUBCUT SCH (08:53)
[2017-07-12] MEDS: GABAPENTIN 50 MG/ML 30 ML/BOTTLE PER TUBE SCH ×2 (08:54→16:04)
--- NOTE | 2017-07-12 09:17 | XRay Report ---
XR chest 2V Indication: Pleural effusion. Chest 2 views: Comparison 2 days ago. Central line, PICC line, left-sided chest tubes, borderline cardiomegaly, tortuous thoracic aorta, infiltrate lateral left midlung, and diffusely coarsened interstitial markings of the lungs appear stable. One of the chest tubes has been removed. Bilateral apical pneumothoraces have decreased in size, now both less than 1%. Emphysema left chest wall noted. Impression: Removal of one of the chest tubes. Decreased size of already tiny bilateral pneumothoraces. Otherwise little change. PROCEDURE INTERPRETED AT [facility] DEPARTMENT OF RADIOLOGY Final Report Signed by: Rufino Sanchez M.D.
--- NOTE | 2017-07-12 13:50 | Cardiothoracic Progress Note ---
Assessment and Plan (1) Esophagus perforation Status: Acute Assessment and plan: Postoperative day 5 status post left thoracotomy. Redo paraesophageal hernia repair with repair of a complete tear of the esophagus and repair of the diaphragm. Patient is doing very well. Pain is well controlled. Having some post ileus diarrhea. We are going to replace electrolytes appropriately. I am going to remove the chest tubes tomorrow and likely home either tomorrow or Thursday depending on tolerance to feed. Current Visit: Yes Exam (Progress Note) - Constitutional Vitals: Period Temp Pulse Resp BP Sys/Benitez Pulse Ox Last 24 Hr 97.6 F-98.3 F 78-87 12-20 115-133/55-72 92-97 Result/EKG - Labs CBC & BMP: 07/11/17 11:32 07/11/17 11:31 Labs: Laboratory Results - last 24 hr 07/11/17 07/11/17 07/11/17 12:12 18:09 23:15 POC Glucose 131 H 123 H 116 H 07/12/17 07/12/17 07/12/17 06:26 07:55 11:25 POC Glucose 136 H 121 H 150 H Quality Measures - VTE Contraindication to Pharmacological VTE Prophylaxis: High Risk of Bleeding
[2017-07-12 14:09] LABS: Basophils % 0.3 % (0.0-0.8); Eosinophils # 0.3 10*3/uL (0.0-0.87); Eosinophils % 4.4 % (0.00-10.9); Hematocrit 35.6 VOL% (35.7-47.0); Hemoglobin 12.1 GM/DL (12.0-16.0); Immature Granulocytes % 0.7 %; Immature Granulocytes Absolute 0.04 #; Lymphocytes # 0.9 10*3/uL (1.4-4.0); Lymphocytes % 14.5 % (21.3-54.2); Mean Corpuscular Hemoglobin 30 PG (27-34); Mean Corpuscular Volume 89.2 FL (87-102); Mean Platelet Volume 10.6 FL (9.6-12.0); Monocytes # 0.7 10*3/uL (0.11-0.8); Monocytes % 12.4 % (1.7-12.7); Neutrophils % 67.7 % (38.7-73.9); Platelet Count 219 T/CUMM (130-400); Red Blood Count 3.99 MC/CUMM (3.8-5.5); Red Cell Distribution Width 12.9 % (9.3-17.3); White Blood Count 5.9 T/CUMM (4-12)
[2017-07-12 14:33] LABS: Calcium 7.9 MG/DL (8.5-10.1); Magnesium 2.4 MG/DL (1.8-2.4); Osmolality,Calculated 276.5 MOS/KG (273-304); Potassium 4.6 MMOL/L (3.5-5.1)
[2017-07-12] MEDS: HYDROcod/ACETAMIN 7.5-325 MG/15 ML UDCUP PO PRN (16:25)
[2017-07-13] MEDS: ACETAMINOPHEN 325 MG/10.15 ML UDCUP PER TUBE SCH ×5 (01:10→21:22)
[2017-07-13] MEDS: GABAPENTIN 50 MG/ML 30 ML/BOTTLE PER TUBE SCH ×4 (01:11→21:24)
[2017-07-13] MEDS: INSULIN REGULAR 100 UNIT/ML SUBCUT SCH ×4 (02:08→17:03)
[2017-07-13 05:39] LABS: Basophils % 0.3 % (0.0-0.8); Eosinophils # 0.3 10*3/uL (0.0-0.87); Eosinophils % 4.8 % (0.00-10.9); Hematocrit 35.6 VOL% (35.7-47.0); Hemoglobin 11.8 GM/DL (12.0-16.0); Immature Granulocytes % 0.5 %; Immature Granulocytes Absolute 0.03 #; Lymphocytes % 15.5 % (21.3-54.2); Mean Corpuscular HGB Conc 33.1 GM/DL (32-36); Mean Corpuscular Hemoglobin 30 PG (27-34); Mean Platelet Volume 11.2 FL (9.6-12.0); Monocytes # 0.8 10*3/uL (0.11-0.8); Monocytes % 12.6 % (1.7-12.7); Neutrophils # 4.3 10*3/uL (1.4-7.4); Neutrophils % 66.3 % (38.7-73.9); Platelet Count 245 T/CUMM (130-400); Red Cell Distribution Width 12.9 % (9.3-17.3); White Blood Count 6.5 T/CUMM (4-12)
[2017-07-13 06:06] LABS: Calcium 8.2 MG/DL (8.5-10.1); Magnesium 2.3 MG/DL (1.8-2.4); Osmolality,Calculated 275.7 MOS/KG (273-304); Potassium 4.3 MMOL/L (3.5-5.1)
[2017-07-13 06:11] LABS: Calcium 8.1 MG/DL (8.5-10.1); Magnesium 2.3 MG/DL (1.8-2.4); Osmolality,Calculated 275.7 MOS/KG (273-304); Potassium 4.3 MMOL/L (3.5-5.1); Prealbumin 12.6 MG/DL (20-40)
[2017-07-13] MEDS: METOCLOPRAMIDE 10 MG/2 ML VIAL IV SCH ×3 (06:29→21:23)
[2017-07-13] MEDS: ENOXAPARIN 40 MG/0.4 ML SYRINGE SUBCUT SCH (08:50)
[2017-07-13] MEDS: PANTOPRAZOLE 40 MG VIAL IV SCH (08:50)
--- NOTE | 2017-07-13 09:10 | XRay Report ---
Single view the chest. Indication: Pleural effusion. Comparison: Yesterday's exam. The heart is normal in size. There are bilateral infiltrates and pleural effusions. Mild interval worsening is suspected. Subcutaneous emphysema shows improvement. PICC line is in satisfactory position. Impression: Worsening opacities in the left mid and lower lung field and right lung base. PROCEDURE INTERPRETED AT [facility] DEPARTMENT OF RADIOLOGY Final Report Signed by: Dr. Blanca Michel
--- NOTE | 2017-07-13 09:24 | Event Note ---
General Surgery Progress Note Chief complaint This patient is a 72-year-old woman who underwent left posterior lateral muscle- sparing thoracotomy with repair of recurrent paraesophageal hernia and reduction of stomach into the abdominal cavity on 07/07/2017 Interval history Patient had a normal esophagram on Thursday and was moved to a telemetry bed over the weekend. She is tolerating liquids with no dysphagia. She is tolerating tube feeds through her jejunal tube. She is doing well but she has low energy and is still having some pain from her remaining chest tube in her left chest. She had some diarrhea over the weekend but C. difficile was negative. Physical exam Patient is afebrile with normal vital signs Chest is clear Heart is regular Abdomen is soft and nontender. Percutaneous gastrojejunostomy tube is in place. Extremities with no edema Labs Reviewed Assessment and plan Diet as per Dr. Jimenez Chest tube management per Dr. Jimenez Start Imodium for diarrhea, likely due to tube feeds and recent antibiotics. C. difficile is negative Increase activity
[2017-07-13] MEDS: LOPERAMIDE 2 MG CAPSULE PO PRN ×3 (11:40→21:23)
--- NOTE | 2017-07-13 12:17 | Cardiothoracic Progress Note ---
Assessment and Plan (1) Esophagus perforation Status: Acute Assessment and plan: Postoperative day 6 status post left thoracotomy. Redo paraesophageal hernia repair with repair of a complete tear of the esophagus and repair of the diaphragm. Patient is doing very well. Pain is well controlled. Continues to have diarrhea. C. difficile is negative. I will start her on Imodium. We will cycle the tube feeds to be overnight only and advance his diet to full liquid diet during the day.. Current Visit: Yes Exam (Progress Note) - Constitutional Vitals: Period Temp Pulse Resp BP Sys/Benitez Pulse Ox Last 24 Hr 97.4 F-98.3 F 76-89 18-20 117-137/55-73 90-94 Result/EKG - Labs CBC & BMP: 07/13/17 05:25 07/13/17 05:25 Labs: Laboratory Results - last 24 hr 07/12/17 07/12/17 07/12/17 14:00 14:00 15:22 WBC 5.9 RBC 3.99 Hgb 12.1 Hct 35.6 L MCV 89.2 MCH 30 MCHC 34.0 RDW 12.9 Plt Count 219 MPV 10.6 Neut % (Auto) 67.7 Lymph % (Auto) 14.5 L [place] % (Auto) 12.4 Eos % (Auto) 4.4 Baso % (Auto) 0.3 Neut # (Auto) 4.0 Lymph # (Auto) 0.9 L [place] # (Auto) 0.7 Eos # (Auto) 0.3 Baso # (Auto) 0.0 Immature Gran % 0.7 Nucleated RBC % 0.0 Immature Gran # 0.04 Nucleated RBCs # 0.00 Immature Plt Fraction 0.0 Sodium 139 Potassium 4.6 Chloride 103 Carbon Dioxide 30 Anion Gap 10.6 BUN 13 Creatinine 0.50 L GFR Calculation 120 BUN/Creatinine Ratio 26.00 H Glucose 94 POC Glucose 113 H Calculated Osmolality 276.5 Calcium 7.9 L Phosphorus Magnesium 2.4 Prealbumin Triglycerides 07/12/17 07/13/17 07/13/17 22:45 05:13 05:25 WBC RBC Hgb Hct MCV MCH MCHC RDW Plt Count MPV Neut % (Auto) Lymph % (Auto) [place] % (Auto) Eos % (Auto) Baso % (Auto) Neut # (Auto) Lymph # (Auto) [place] # (Auto) Eos # (Auto) Baso # (Auto) Immature Gran % Nucleated RBC % Immature Gran # Nucleated RBCs # Immature Plt Fraction Sodium 138 Potassium 4.3 Chloride 102 Carbon Dioxide 31 Anion Gap 9.3 BUN 12 Creatinine 0.50 L GFR Calculation 120 BUN/Creatinine Ratio 24.00 H Glucose 109 H POC Glucose 116 H 115 H Calculated Osmolality 275.7 Calcium 8.1 L Phosphorus 4.0 Magnesium 2.3 Prealbumin 12.6 L Triglycerides 139 07/13/17 07/13/17 07/13/17 05:25 05:25 11:06 WBC 6.5 RBC 4.00 Hgb 11.8 L Hct 35.6 L MCV 89.0 MCH 30 MCHC 33.1 RDW 12.9 Plt Count 245 MPV 11.2 Neut % (Auto) 66.3 Lymph % (Auto) 15.5 L [place] % (Auto) 12.6 Eos % (Auto) 4.8 Baso % (Auto) 0.3 Neut # (Auto) 4.3 Lymph # (Auto) 1.0 L [place] # (Auto) 0.8 Eos # (Auto) 0.3 Baso # (Auto) 0.0 Immature Gran % 0.5 Nucleated RBC % 0.0 Immature Gran # 0.03 Nucleated RBCs # 0.00 Immature Plt Fraction 0.0 Sodium 138 Potassium 4.3 Chloride 101 Carbon Dioxide 31 Anion Gap 10.3 BUN 12 Creatinine 0.50 L GFR Calculation 120 BUN/Creatinine Ratio 24.00 H Glucose 115 H POC Glucose 120 H Calculated Osmolality 275.7 Calcium 8.2 L Phosphorus Magnesium 2.3 Prealbumin Triglycerides Quality Measures - VTE Contraindication to Pharmacological VTE Prophylaxis: High Risk of Bleeding
[2017-07-13] MEDS: HYDROcod/ACETAMIN 7.5-325 MG/15 ML UDCUP PO PRN (17:02)
[2017-07-13] MEDS: ONDANSETRON 4 MG/2 ML VIAL IV PRN (17:06)
[2017-07-13] MEDS: LACTOBACILLUS ACIDOPHILUS/BULGARICUS CAPLET PO SCH (21:23)
[2017-07-14] MEDS: INSULIN REGULAR 100 UNIT/ML SUBCUT SCH ×4 (01:04→18:09)
[2017-07-14] MEDS: ACETAMINOPHEN 325 MG/10.15 ML UDCUP PER TUBE SCH ×4 (03:09→21:19)
[2017-07-14] MEDS: METOCLOPRAMIDE 10 MG/2 ML VIAL IV SCH ×3 (06:07→21:20)
[2017-07-14] MEDS: LACTOBACILLUS ACIDOPHILUS/BULGARICUS CAPLET PO SCH ×2 (08:44→21:20)
[2017-07-14] MEDS: PANTOPRAZOLE 40 MG VIAL IV SCH (08:44)
[2017-07-14] MEDS: ENOXAPARIN 40 MG/0.4 ML SYRINGE SUBCUT SCH (08:44)
[2017-07-14] MEDS: DESITIN 4OZ/NYSTATIN 15 GRAM MIXTURE PASTE TOP SCH ×2 (08:45→21:20)
[2017-07-14] MEDS: GABAPENTIN 50 MG/ML 30 ML/BOTTLE PER TUBE SCH ×2 (08:45→15:16)
--- NOTE | 2017-07-14 09:48 | Event Note ---
General Surgery Progress Note Chief complaint This patient is a 72-year-old woman who underwent left posterior lateral muscle- sparing thoracotomy with repair of recurrent paraesophageal hernia and reduction of stomach into the abdominal cavity on 07/07/2017 Interval history Patient had no events overnight. She is resting better. She still having significant amounts of pain at her thoracotomy site. One of her drains is still in. She is trying to get up and move around some. Physical exam Patient is afebrile with normal vital signs Chest with decreased breath sounds left chest Heart is regular Abdomen is soft and nontender. Percutaneous gastrojejunostomy tube is in place. Extremities with no edema Labs Reviewed Assessment and plan Diet as per Dr. Jimenez Chest tube management per Dr. Jimenez Continue activity and physical therapy Patient would like to try to go home at the end of this week but if she is not strong enough we can consider placement options.
--- NOTE | 2017-07-14 10:25 | Cardiothoracic Progress Note ---
Assessment and Plan (1) Esophagus perforation Status: Acute Assessment and plan: Postoperative day 7 status post left thoracotomy. Redo paraesophageal hernia repair with repair of a complete tear of the esophagus and repair of the diaphragm. Patient is doing very well. Pain is well controlled. Diarrhea has significantly improved. The patient had around 600 cc output of serous fluid overnight from the chest tube. I will keep the chest tube today. I will switch her diet to low-fat full liquid diet as well as medium chain fatty acid and her tube feeds. We will follow-up closely for the chest tube output for tomorrow.. Current Visit: Yes Exam (Progress Note) - Constitutional Vitals: Period Temp Pulse Resp BP Sys/Benitez Pulse Ox Last 24 Hr 96.9 F-98.9 F 77-115 16-20 100-119/55-71 90-94 Result/EKG - Labs CBC & BMP: 07/13/17 05:25 07/13/17 05:25 Labs: Laboratory Results - last 24 hr 07/13/17 07/13/17 07/13/17 11:06 15:02 18:53 POC Glucose 120 H 138 H 132 H 07/14/17 07/14/17 07/14/17 00:29 00:32 06:23 POC Glucose < 20 L* 132 H 100 Quality Measures - VTE Contraindication to Pharmacological VTE Prophylaxis: High Risk of Bleeding
[2017-07-14] MEDS: HYDROcod/ACETAMIN 7.5-325 MG/15 ML UDCUP PO PRN (16:17)
[2017-07-14] MEDS ORDERED: LOPERAMIDE 2 MG CAPSULE PO PRN (20:30)
[2017-07-15] MEDS: GABAPENTIN 50 MG/ML 30 ML/BOTTLE PER TUBE SCH ×4 (00:52→21:15)
[2017-07-15] MEDS: INSULIN REGULAR 100 UNIT/ML SUBCUT SCH ×4 (00:59→17:31)
[2017-07-15] MEDS: ACETAMINOPHEN 325 MG/10.15 ML UDCUP PER TUBE SCH ×4 (03:15→21:16)
[2017-07-15 04:57] LABS: Basophils % 0.5 % (0.0-0.8); Eosinophils # 0.3 10*3/uL (0.0-0.87); Hematocrit 33.9 VOL% (35.7-47.0); Hemoglobin 11.2 GM/DL (12.0-16.0); Immature Granulocytes % 0.6 %; Immature Granulocytes Absolute 0.04 #; Lymphocytes # 0.9 10*3/uL (1.4-4.0); Lymphocytes % 14.6 % (21.3-54.2); Mean Corpuscular Hemoglobin 30 PG (27-34); Mean Corpuscular Volume 90.9 FL (87-102); Mean Platelet Volume 10.9 FL (9.6-12.0); Monocytes # 0.7 10*3/uL (0.11-0.8); Monocytes % 10.4 % (1.7-12.7); Neutrophils # 4.5 10*3/uL (1.4-7.4); Neutrophils % 69.9 % (38.7-73.9); Platelet Count 264 T/CUMM (130-400); Red Blood Count 3.73 MC/CUMM (3.8-5.5); White Blood Count 6.4 T/CUMM (4-12)
[2017-07-15 05:31] LABS: Calcium 8.1 MG/DL (8.5-10.1); Magnesium 2.3 MG/DL (1.8-2.4); Osmolality,Calculated 275.7 MOS/KG (273-304); Potassium 4.2 MMOL/L (3.5-5.1)
[2017-07-15] MEDS: METOCLOPRAMIDE 10 MG/2 ML VIAL IV SCH ×2 (06:37→15:37)
--- NOTE | 2017-07-15 07:07 | Cardiothoracic Progress Note ---
Assessment and Plan (1) Esophagus perforation Status: Acute Assessment and plan: Postoperative day 8 status post left thoracotomy. Redo paraesophageal hernia repair with repair of an incomplete tear of the esophagus and repair of the diaphragm. Patient continued to have diarrhea overnight and response to tube feeds. I will add banana flakes, I will make the Imodium scheduled 4 mg twice daily, I will do calorie count during the day to see if we can DC the tube feeds. Her output from the chest tube is 500 cc over the past 24 hours, it serous, I will intend to keep the tube to waterseal today. Please note that the chest tube output is incorrectly recorded in the chart chart Current Visit: Yes Exam (Progress Note) - Constitutional Vitals: Period Temp Pulse Resp BP Sys/Benitez Pulse Ox Last 24 Hr 96.7 F-99.5 F 77-95 18-20 103-130/51-70 84-94 Result/EKG - Labs CBC & BMP: 07/15/17 04:54 07/15/17 04:30 Labs: Laboratory Results - last 24 hr 07/14/17 07/14/17 07/14/17 11:06 15:03 18:07 WBC RBC Hgb Hct MCV MCH MCHC RDW Plt Count MPV Neut % (Auto) Lymph % (Auto) [place] % (Auto) Eos % (Auto) Baso % (Auto) Neut # (Auto) Lymph # (Auto) [place] # (Auto) Eos # (Auto) Baso # (Auto) Immature Gran % Nucleated RBC % Immature Gran # Nucleated RBCs # Immature Plt Fraction Sodium Potassium Chloride Carbon Dioxide Anion Gap BUN Creatinine GFR Calculation BUN/Creatinine Ratio Glucose POC Glucose 108 H 108 H 120 H Calculated Osmolality Calcium Magnesium 07/14/17 07/15/17 07/15/17 19:04 00:55 04:30 WBC RBC Hgb Hct MCV MCH MCHC RDW Plt Count MPV Neut % (Auto) Lymph % (Auto) [place] % (Auto) Eos % (Auto) Baso % (Auto) Neut # (Auto) Lymph # (Auto) [place] # (Auto) Eos # (Auto) Baso # (Auto) Immature Gran % Nucleated RBC % Immature Gran # Nucleated RBCs # Immature Plt Fraction Sodium 138 Potassium 4.2 Chloride 102 Carbon Dioxide 30 Anion Gap 10.2 BUN 13 Creatinine 0.60 GFR Calculation 112 BUN/Creatinine Ratio 21.00 H Glucose 112 H POC Glucose 108 H 77 Calculated Osmolality 275.7 Calcium 8.1 L Magnesium 2.3 07/15/17 07/15/17 04:54 05:45 WBC 6.4 RBC 3.73 L Hgb 11.2 L Hct 33.9 L MCV 90.9 MCH 30 MCHC 33.0 RDW 13.0 Plt Count 264 MPV 10.9 Neut % (Auto) 69.9 Lymph % (Auto) 14.6 L [place] % (Auto) 10.4 Eos % (Auto) 4.0 Baso % (Auto) 0.5 Neut # (Auto) 4.5 Lymph # (Auto) 0.9 L [place] # (Auto) 0.7 Eos # (Auto) 0.3 Baso # (Auto) 0.0 Immature Gran % 0.6 Nucleated RBC % 0.0 Immature Gran # 0.04 Nucleated RBCs # 0.00 Immature Plt Fraction 0.0 Sodium Potassium Chloride Carbon Dioxide Anion Gap BUN Creatinine GFR Calculation BUN/Creatinine Ratio Glucose POC Glucose 91 Calculated Osmolality Calcium Magnesium Quality Measures - VTE Contraindication to Pharmacological VTE Prophylaxis: High Risk of Bleeding
--- NOTE | 2017-07-15 07:43 | XRay Report ---
2 view chest. Indication: Left-sided pleural effusion. Comparison: July 13, 2017. The heart is normal in size. The lung calle are hyperexpanded. There is a suspected small right apical pneumothorax measuring 8 mm in thickness. There are chronic lung changes. There is increasing opacity at the left lung base, which may be related to pleural effusion or atelectasis. Subcutaneous emphysema, shows improvement. The lung calle are better aerated overall on today's exam. Impression: A small right apical pneumothorax is suggested. Attention to this on follow-up is recommended. Overall improved aeration of the lung calle. Slight more focal atelectasis or pleural effusion on the left. Findings discussed with nursing service. PROCEDURE INTERPRETED AT [facility] DEPARTMENT OF RADIOLOGY Final Report Signed by: Dr. Blanca Michel
--- NOTE | 2017-07-15 08:26 | Event Note ---
General Surgery Progress Note Chief complaint This patient is a 72-year-old woman who underwent left posterior lateral muscle- sparing thoracotomy with repair of recurrent paraesophageal hernia and reduction of stomach into the abdominal cavity on 07/07/2017 Interval history No events overnight. Diarrhea continues. Physical exam Patient is afebrile with normal vital signs Chest with stable decreased breath sounds left chest Heart is regular Abdomen is soft and nontender. Percutaneous gastrojejunostomy tube is in place. Extremities with no edema Labs Reviewed Assessment and plan Diet as per Dr. Jimenez Chest tube management per Dr. Jimenez Continue activity and physical therapy Social work consult for swing bed placement later this week
[2017-07-15] MEDS: LOPERAMIDE 2 MG CAPSULE PO SCH ×2 (09:18→21:17)
[2017-07-15] MEDS: LACTOBACILLUS ACIDOPHILUS/BULGARICUS CAPLET PO SCH ×2 (09:35→21:18)
[2017-07-15] MEDS: LACTOBACILLUS RHAMNOSUS GG CAPSULE PO SCH ×2 (09:35→21:18)
[2017-07-15] MEDS: PANTOPRAZOLE 40 MG VIAL IV SCH (09:36)
[2017-07-15] MEDS: ENOXAPARIN 40 MG/0.4 ML SYRINGE SUBCUT SCH (09:36)
[2017-07-15] MEDS: DESITIN 4OZ/NYSTATIN 15 GRAM MIXTURE PASTE TOP SCH ×2 (10:51→21:31)
[2017-07-15] MEDS: WHEAT DEXTRIN POWDER 244 GM BOTTLE PO SCH ×3 (12:37→21:17)
[2017-07-15] MEDS: HYDROcod/ACETAMIN 7.5-325 MG/15 ML UDCUP PO PRN ×2 (15:50→23:59)
[2017-07-15] MEDS: METOCLOPRAMIDE 5 MG TABLET PO SCH (21:39)
[2017-07-16] MEDS: INSULIN REGULAR 100 UNIT/ML SUBCUT SCH ×4 (00:02→19:06)
[2017-07-16] MEDS: ACETAMINOPHEN 325 MG/10.15 ML UDCUP PER TUBE SCH ×4 (03:31→21:42)
[2017-07-16 04:40] LABS: Basophils % 0.3 % (0.0-0.8); Eosinophils # 0.3 10*3/uL (0.0-0.87); Eosinophils % 4.2 % (0.00-10.9); Hematocrit 35.4 VOL% (35.7-47.0); Hemoglobin 11.8 GM/DL (12.0-16.0); Immature Granulocytes % 0.5 %; Immature Granulocytes Absolute 0.03 #; Lymphocytes # 1.2 10*3/uL (1.4-4.0); Lymphocytes % 19.6 % (21.3-54.2); Mean Corpuscular HGB Conc 33.3 GM/DL (32-36); Mean Corpuscular Hemoglobin 30 PG (27-34); Mean Corpuscular Volume 90.3 FL (87-102); Mean Platelet Volume 10.9 FL (9.6-12.0); Monocytes # 0.6 10*3/uL (0.11-0.8); Monocytes % 9.3 % (1.7-12.7); Neutrophils # 4.1 10*3/uL (1.4-7.4); Neutrophils % 66.1 % (38.7-73.9); Platelet Count 291 T/CUMM (130-400); Red Blood Count 3.92 MC/CUMM (3.8-5.5); Red Cell Distribution Width 13.2 % (9.3-17.3); White Blood Count 6.2 T/CUMM (4-12)
[2017-07-16 05:08] LABS: Phosphorous 3.8 MG/DL (2.5-4.9)
[2017-07-16 05:48] LABS: Calcium 8.2 MG/DL (8.5-10.1); Magnesium 2.5 MG/DL (1.8-2.4); Osmolality,Calculated 276.4 MOS/KG (273-304)
[2017-07-16] MEDS: METOCLOPRAMIDE 5 MG TABLET PO SCH (06:35)
--- NOTE | 2017-07-16 09:11 | Discharge Summary ---
Hospital Course - Hospital Course Hospital Course: This patient was admitted to the hospital with dysphagia and she was evaluated with CT scan that raised the possibility of an esophageal leak into the chest and a contained abscess cavity. I discussed her problems with Dr. Jimenez who reviewed her images with me and we decided to recommend a left thoracotomy with evaluation of this space and repair of any esophageal leak as well as repair of any paraesophageal hernia could be present or hiatal hernia. The patient was kept in the hospital over the weekend on TPN and antibiotics and taken to the operating room the following week. Her operation revealed recurrent hiatal hernia paraesophageal type and her wrap was taken down and hiatal hernia repaired through the chest. An esophageal tear that was found was also repaired at the time of that operation. The patient recovered well and was kept in the ICU for a couple days. She had a gastrostomy tube converted to a gastrojejunostomy tube and obtain tube feedings at night to maintain her caloric intake. She eventually reached maximal benefit from the acute care hospital and recommended [facility] ongoing therapy and rehabilitation. The patient was transferred to a swing bed at [facility]. Her chest tubes were removed prior to transfer. The plan at [facility] is to continue nocturnal tube feeds and do caloric counting during the day to make sure she is taking adequate caloric intake prior to discontinuing her tube feeds. She also developed some diarrhea in the hospital and had a negative C. difficile and this was treated with antimotility agents. The patient was transferred on a mechanical soft diet. She will need to continue this until advised otherwise by Dr. Jimenez. Diagnosis - Discharge Diagnosis (1) Dehydration Status: Resolved Discharge Plan - Discharge Data Disposition: Disch/Xfer-[facility] Term Hos Condition at Discharge: Stable Discharge Diet: other (soft diet) Activity: no lifting Hygiene: may shower Weight Bearing at Discharge: weight bear as tolerated Driving: not until seen by doctor Contact your physician if you experience:: fever over 101, Difficulty voiding, Redness or swelling, Nausea/Vomiting, Shortness of breath, Bleeding, pain uncontrolled by pain medications Wound / Dressing Care Instructions: Leave the dressings on the chest for 2 days. It is then okay to remove the dressings and shower. - Discharge Medications No Action No Known Home Medications [No Known Home Medications] - Follow Up or Referral Follow Up: Rosalio Chong MD [Physician] - 2 Weeks Carlin Jimenez [Physician] - - Forms/Instructions Exam - Constitutional Vitals: Period Temp Pulse Resp BP Sys/Benitez Pulse Ox Last 24 Hr 97.5 F-98.7 F 80-90 16-20 102-123/59-68 90-94 General appearance: no acute distress, over weight - Head Head exam: Present: normal inspection - Eye Eye exam: Present: EOMI Pupils: Present: CHRISTY - ENT ENT exam: Present: normal exam - Neck Neck exam: Present: normal inspection - Respiratory Respiratory exam: Present: clear to auscultation bilaterally. Absent: accessory muscle use, chest wall tenderness - Cardiovascular Cardiovascular exam: Present: regular rate and rhythm. Absent: systolic murmur , tachycardia - GI/Abdominal GI/Abdominal exam: Present: soft, other (Gastrostomy tube in place). Absent: tenderness, rebound - Extremities Exam Extremities exam: Present: normal inspection, normal capillary refill - Back Exam Back exam: Present: normal inspection - Neurological Exam Neurological exam: Present: alert - Psychiatric Psychiatric exam: Present: normal affect, normal mood - Skin Skin exam: Present: normal color, warm Discharge Results Procedures and tests throughout hospitalization: Pending Orders 07/07/17 07:14 Red Blood Cells Leuko Red Stat Type and Screen Stat 07/16/17 04:00 XR chest 2V IN AM 07/16/17 08:19 XR chest 2V Stat 07/17/17 04:00 XR chest 2V IN AM Basic Metabolic Panel w/Mg IN AM Comp Blood Count Auto Diff IN AM 07/20/17 04:00 Basic Metabolic Panel MOTH Magnesium MOTH Phosphorous MOTH 07/23/17 04:00 Basic Metabolic Panel MOTH Magnesium MOTH Phosphorous MOTH Labs on day of discharge: Labs from last 24 hours 07/16/17 07/16/17 07/16/17 06:01 03:29 03:29 WBC RBC Hgb Hct MCV MCH MCHC RDW Plt Count MPV Neut % (Auto) Lymph % (Auto) [place] % (Auto) Eos % (Auto) Baso % (Auto) Neut # (Auto) Lymph # (Auto) [place] # (Auto) Eos # (Auto) Baso # (Auto) Immature Gran % Nucleated RBC % Immature Gran # Nucleated RBCs # Immature Plt Fraction Sodium 140 Potassium 5.0 Chloride 103 Carbon Dioxide 30 Anion Gap 12.0 BUN 10 Creatinine 0.60 GFR Calculation 112 BUN/Creatinine Ratio 16.00 Glucose 84 POC Glucose 99 Calculated Osmolality 276.4 Calcium 8.2 L Phosphorus Magnesium 2.5 H Prealbumin 11.7 L Triglycerides 07/16/17 07/16/17 07/16/17 03:29 03:29 00:02 WBC 6.2 RBC 3.92 Hgb 11.8 L Hct 35.4 L MCV 90.3 MCH 30 MCHC 33.3 RDW 13.2 Plt Count 291 MPV 10.9 Neut % (Auto) 66.1 Lymph % (Auto) 19.6 L [place] % (Auto) 9.3 Eos % (Auto) 4.2 Baso % (Auto) 0.3 Neut # (Auto) 4.1 Lymph # (Auto) 1.2 L [place] # (Auto) 0.6 Eos # (Auto) 0.3 Baso # (Auto) 0.0 Immature Gran % 0.5 Nucleated RBC % 0.0 Immature Gran # 0.03 Nucleated RBCs # 0.00 Immature Plt Fraction 0.0 Sodium Potassium Chloride Carbon Dioxide Anion Gap BUN Creatinine GFR Calculation BUN/Creatinine Ratio Glucose POC Glucose 93 Calculated Osmolality Calcium Phosphorus 3.8 Magnesium Prealbumin Triglycerides 156 H 07/15/17 07/15/17 07/15/17 18:53 15:11 11:17 WBC RBC Hgb Hct MCV MCH MCHC RDW Plt Count MPV Neut % (Auto) Lymph % (Auto) [place] % (Auto) Eos % (Auto) Baso % (Auto) Neut # (Auto) Lymph # (Auto) [place] # (Auto) Eos # (Auto) Baso # (Auto) Immature Gran % Nucleated RBC % Immature Gran # Nucleated RBCs # Immature Plt Fraction Sodium Potassium Chloride Carbon Dioxide Anion Gap BUN Creatinine GFR Calculation BUN/Creatinine Ratio Glucose POC Glucose 117 H 133 H 119 H Calculated Osmolality Calcium Phosphorus Magnesium Prealbumin Triglycerides DS: Provider Date of admission: 07/02/17 17:09 Primary care physician: Carrington Esquivel DO Attending physician on admission: Rosalio Chong MD Consults: 07/02/17 22:06 Consult to Dietitian [CONS] Routine Reason for Dietitian: Dietary Consult Consult Comment: pt lost greater than 30 lbs 07/03/17 07:01 Consult to Dietitian [CONS] Routine Reason for Dietitian: TPN/PPN-Initiate/Manage 07/07/17 19:36 Consult to Physician [CONS] Routine Comment: Consulting Provider: Carlin Jimenez 07/08/17 12:50 Consult to Physical Therapy [CONS] Routine Reason for Physical Therapy: Evaluate and Treat 07/09/17 14:12 Consult to Dietitian [CONS] Routine Reason for Dietitian: TF-Initiate/Manage TPN/PPN-Initiate/Manage 07/15/17 06:55 Consult to Dietitian [CONS] Routine Reason for Dietitian: Dietary Consult Consult Comment: Add banana flakes to tube feedings 07/15/17 07:13 Consult to Dietitian [CONS] Routine Reason for Dietitian: Other Consult Comment: calorie count 07/15/17 08:26 Consult to Case Mgmt/Social Srvs [CONS] Routine Reason for Case Mgmt/Social Srvs: Swingbed/SNF/Half-Way Discharging clinician: Rosalio Chong MD Expected date of discharge: 07/16/17
--- NOTE | 2017-07-16 09:21 | XRay Report ---
History: Pleural effusion. Chest tube removal Date: 07/16/2017 at 8:51 AM Study: Chest x-ray PA and lateral Comparison exam: 07/16/2017 at 7:30 AM The chest tube in the left hemithorax has been removed since the earlier exam. There is a small left apical pneumothorax measuring less than 5% which is unchanged. There is some mild soft tissue emphysema of the left chest wall and supraclavicular region which is stable. There is continued mild cardiomegaly. The midsternal contours are unchanged. The pulmonary vasculature is not engorged. Mild bibasilar atelectasis and pleural effusion persist, stable to improved. There is no new or worsening infiltrate. Osseous structures are similar. Impression: Stable small left apical pneumothorax following chest tube removal. Continued bibasilar atelectasis and mild pleural effusion, the same or mildly improved PROCEDURE INTERPRETED AT [facility] [place] DEPARTMENT OF RADIOLOGY Final Report Signed by: Dr. Viv Gutierrez
--- NOTE | 2017-07-16 09:23 | XRay Report ---
Chest, 2 views History is a left pleural effusion, chest tube management Comparison 07/15/2017 Mediastinal and hilar contours unchanged The lungs are hyperexpanded. Left chest tubes remain. The there is a tiny left apical pneumothorax with mild soft tissue gas in the left chest wall and supraclavicular region. Mild reticular and minimal patchy opacities in the lung bases and left mid chest remain but are slightly improved in the interval. Small bilateral pleural effusions remain. Impression: 1. Tiny left apical pneumothorax 2. slight improvement described above PROCEDURE INTERPRETED AT [facility] DEPARTMENT OF RADIOLOGY Final Report Signed by: Dr. Shireen Michel
[2017-07-16] MEDS: WHEAT DEXTRIN POWDER 244 GM BOTTLE PO SCH ×3 (09:37→21:43)
[2017-07-16] MEDS: ENOXAPARIN 40 MG/0.4 ML SYRINGE SUBCUT SCH (09:37)
[2017-07-16] MEDS: LACTOBACILLUS ACIDOPHILUS/BULGARICUS CAPLET PO SCH ×2 (09:38→21:43)
[2017-07-16] MEDS: LOPERAMIDE 2 MG CAPSULE PO SCH ×2 (09:39→21:43)
[2017-07-16] MEDS: PANTOPRAZOLE 40 MG TABLET PO SCH (09:39)
[2017-07-16] MEDS: LACTOBACILLUS RHAMNOSUS GG CAPSULE PO SCH ×2 (09:39→21:49)
[2017-07-16] MEDS: GABAPENTIN 50 MG/ML 30 ML/BOTTLE PER TUBE SCH ×2 (09:39→16:24)
[2017-07-16] MEDS: DESITIN 4OZ/NYSTATIN 15 GRAM MIXTURE PASTE TOP SCH ×2 (09:46→21:44)
[2017-07-17] MEDS: INSULIN REGULAR 100 UNIT/ML SUBCUT SCH ×3 (00:26→12:02)
[2017-07-17] MEDS: GABAPENTIN 50 MG/ML 30 ML/BOTTLE PER TUBE SCH ×2 (00:32→08:36)
[2017-07-17] MEDS: ACETAMINOPHEN 325 MG/10.15 ML UDCUP PER TUBE SCH ×3 (03:43→14:40)
[2017-07-17 05:04] LABS: Basophils % 0.6 % (0.0-0.8); Eosinophils # 0.4 10*3/uL (0.0-0.87); Hematocrit 35.9 VOL% (35.7-47.0); Hemoglobin 11.9 GM/DL (12.0-16.0); Immature Granulocytes % 0.6 %; Immature Granulocytes Absolute 0.04 #; Lymphocytes # 1.1 10*3/uL (1.4-4.0); Lymphocytes % 15.8 % (21.3-54.2); Mean Corpuscular HGB Conc 33.1 GM/DL (32-36); Mean Corpuscular Hemoglobin 30 PG (27-34); Mean Corpuscular Volume 90.9 FL (87-102); Mean Platelet Volume 10.3 FL (9.6-12.0); Monocytes # 0.7 10*3/uL (0.11-0.8); Monocytes % 9.3 % (1.7-12.7); Neutrophils # 4.7 10*3/uL (1.4-7.4); Neutrophils % 67.7 % (38.7-73.9); Platelet Count 312 T/CUMM (130-400); Red Blood Count 3.95 MC/CUMM (3.8-5.5); Red Cell Distribution Width 13.2 % (9.3-17.3)
[2017-07-17 05:38] LABS: Calcium 8.4 MG/DL (8.5-10.1); Magnesium 2.5 MG/DL (1.8-2.4); Osmolality,Calculated 280.3 MOS/KG (273-304); Potassium 5.3 MMOL/L (3.5-5.1)
--- NOTE | 2017-07-17 07:39 | Event Note ---
General Surgery Progress Note Chief complaint This patient is a 72-year-old woman who underwent left posterior lateral muscle- sparing thoracotomy with repair of recurrent paraesophageal hernia and reduction of stomach into the abdominal cavity on 07/07/2017 Interval history No events overnight. Diarrhea improved. Tolerating diet Physical exam Patient is afebrile with normal vital signs Chest with stable decreased breath sounds left chest Heart is regular Abdomen is soft and nontender. Percutaneous gastrojejunostomy tube is in place. Extremities with no edema Labs Reviewed Assessment and plan The patient is excepted at [facility] and she will go today for rehab.
[2017-07-17] MEDS: DESITIN 4OZ/NYSTATIN 15 GRAM MIXTURE PASTE TOP SCH (08:36)
[2017-07-17] MEDS: LACTOBACILLUS ACIDOPHILUS/BULGARICUS CAPLET PO SCH (08:37)
[2017-07-17] MEDS: WHEAT DEXTRIN POWDER 244 GM BOTTLE PO SCH ×2 (08:37→14:40)
[2017-07-17] MEDS: LOPERAMIDE 2 MG CAPSULE PO SCH (08:37)
[2017-07-17] MEDS: PANTOPRAZOLE 40 MG TABLET PO SCH (08:37)
[2017-07-17] MEDS: LACTOBACILLUS RHAMNOSUS GG CAPSULE PO SCH (08:39)
[2017-07-17] MEDS: ENOXAPARIN 40 MG/0.4 ML SYRINGE SUBCUT SCH (08:39)
--- NOTE | 2017-07-17 09:53 | XRay Report ---
XR chest 2V Indication: Left pleural effusion. Chest 2 views: Comparison yesterday. Heart size remains upper limits normal with a normal mediastinal contour. Severe scarring of the upper lobes, left central lung and both lung bases is stable as well. Tiny bilateral pleural effusions are present dependently. Impression: Tiny bilateral pleural effusions. Interstitial scarring of the lung calle as described. PROCEDURE INTERPRETED AT [facility] DEPARTMENT OF RADIOLOGY Final Report Signed by: Rufino Sanchez M.D.
[2017-07-17 12:07] VITALS: BP 108/60
== END 2017-07-17 15:02 | DRG 326 ==
LOC: N.ED 14:48 → N.EDINP 17:09 → N.3E 18:29 → N.ICU 07-07 13:35 → N.TELES 07-11 13:25
PROVIDERS: ADMIT Surgery; ATTEND Surgery
PROC: EGDWPEG (ICD-10-PCS; 2017-07-07 07:50)

== ENCOUNTER 2017-12-28 10:44 | Inpatient (IN) ==
[2017-12-28] MEDS ORDERED: ASPIRIN 325 MG TABLET PO STA (10:47)
[2017-12-28] MEDS ORDERED: SODIUM CHLORIDE 0.9% 1,000 ML IV STA (11:45)
[2017-12-28] MEDS ORDERED: PROPOFOL 1,000 MG/100 ML BOTTLE IV ONE (11:49)
[2017-12-28 11:51] LABS: Basophils % 0.5 % (0.0-0.8); Eosinophils # 0.2 10*3/uL (0.0-0.87); Eosinophils % 3.4 % (0.00-10.9); Hematocrit 43.4 VOL% (35.7-47.0); Hemoglobin 14.5 GM/DL (12.0-16.0); Immature Granulocytes % 0.2 %; Immature Granulocytes Absolute 0.01 #; Lymphocytes # 1.1 10*3/uL (1.4-4.0); Lymphocytes % 19.4 % (21.3-54.2); Mean Corpuscular HGB Conc 33.4 GM/DL (32-36); Mean Corpuscular Hemoglobin 30 PG (27-34); Mean Platelet Volume 11.3 FL (9.6-12.0); Monocytes # 0.4 10*3/uL (0.11-0.8); Monocytes % 6.3 % (1.7-12.7); Neutrophils # 3.9 10*3/uL (1.4-7.4); Neutrophils % 70.2 % (38.7-73.9); Platelet Count 219 T/CUMM (130-400); Red Blood Count 4.82 MC/CUMM (3.8-5.5); Red Cell Distribution Width 12.3 % (9.3-17.3); White Blood Count 5.6 T/CUMM (4-12)
[2017-12-28] MEDS ORDERED: ONDANSETRON 4 MG/2 ML VIAL ONE (12:06)
[2017-12-28 12:12] LABS: Albumin 3.8 G/DL (3.4-5.0); Bilirubin,Total 0.6 MG/DL (0.2-1.0); Calcium 9.4 MG/DL (8.5-10.1); Osmolality,Calculated 282.3 MOS/KG (273-304); PT Patient Result 10.9 SECS; Partial Thromboplastin Time 24.6 SECS (0-40); Potassium 4.1 MMOL/L (3.5-5.1); Total Protein 7.5 G/DL (6.4-8.3)
[2017-12-28] MEDS ORDERED: MORPHINE 2 MG/1 ML SYRINGE ONE ×2 (12:25→13:08)
[2017-12-28] MEDS ORDERED: ONDANSETRON 4 MG/2 ML VIAL IV STA (12:26)
[2017-12-28] MEDS ORDERED: MORPHINE 2 MG/1 ML SYRINGE IV STA ×2 (12:26→13:07)
[2017-12-28] MEDS ORDERED: ACETAMINOPHEN 325 MG TABLET PO PRN ×2 (14:04)
[2017-12-28] MEDS ORDERED: traMADol 50 MG TABLET PO PRN (14:04)
[2017-12-28] MEDS ORDERED: HYDROmorphone 2 MG/1 ML VIAL IV PRN (14:04)
[2017-12-28] MEDS: LACTATED RINGERS 1,000 ML IV SCH ×2 (15:09→23:18)
[2017-12-28] MEDS: KETOROLAC 15 MG/1 ML VIAL IV SCH ×2 (15:18→20:56)
[2017-12-28] MEDS: LACTOBACILLUS ACIDOPHILUS/BULGARICUS CAPLET PO SCH (20:56)
[2017-12-28] MEDS: TEMAZEPAM 7.5 MG CAPSULE PO PRN (20:56)
[2017-12-29] MEDS: KETOROLAC 15 MG/1 ML VIAL IV SCH ×4 (03:55→21:45)
[2017-12-29] MEDS: ENOXAPARIN 40 MG/0.4 ML SYRINGE SUBCUT SCH (05:38)
[2017-12-29 06:16] LABS: Basophils % 0.7 % (0.0-0.8); Eosinophils # 0.2 10*3/uL (0.0-0.87); Eosinophils % 4.6 % (0.00-10.9); Hematocrit 34.7 VOL% (35.7-47.0); Hemoglobin 11.8 GM/DL (12.0-16.0); Immature Granulocytes % 0.4 %; Immature Granulocytes Absolute 0.02 #; Lymphocytes # 0.8 10*3/uL (1.4-4.0); Mean Corpuscular Hemoglobin 31 PG (27-34); Mean Corpuscular Volume 89.9 FL (87-102); Mean Platelet Volume 11.7 FL (9.6-12.0); Monocytes # 0.5 10*3/uL (0.11-0.8); Neutrophils # 3.1 10*3/uL (1.4-7.4); Neutrophils % 67.3 % (38.7-73.9); Platelet Count 166 T/CUMM (130-400); Red Blood Count 3.86 MC/CUMM (3.8-5.5); Red Cell Distribution Width 12.7 % (9.3-17.3); White Blood Count 4.6 T/CUMM (4-12)
[2017-12-29 06:52] LABS: Calcium 8.1 MG/DL (8.5-10.1); Osmolality,Calculated 286.8 MOS/KG (273-304); Potassium 4.1 MMOL/L (3.5-5.1)
[2017-12-29] MEDS: LACTATED RINGERS 1,000 ML IV SCH (07:01)
[2017-12-29] MEDS: PANTOPRAZOLE 40 MG TABLET PO SCH (10:20)
[2017-12-29] MEDS: LACTOBACILLUS ACIDOPHILUS/BULGARICUS CAPLET PO SCH ×2 (10:20→21:45)
[2017-12-29] MEDS: TEMAZEPAM 7.5 MG CAPSULE PO PRN (21:51)
[2017-12-30] MEDS: KETOROLAC 15 MG/1 ML VIAL IV SCH ×4 (03:56→21:33)
[2017-12-30] MEDS: ENOXAPARIN 40 MG/0.4 ML SYRINGE SUBCUT SCH (05:30)
[2017-12-30] MEDS: LACTOBACILLUS ACIDOPHILUS/BULGARICUS CAPLET PO SCH ×2 (09:22→21:32)
[2017-12-30] MEDS: PANTOPRAZOLE 40 MG TABLET PO SCH (09:23)
[2017-12-30] MEDS: POLYETHYLENE GLYCOL POWDER 17 GM PACK PO SCH (14:55)
[2017-12-30] MEDS: DOCUSATE SODIUM 100 MG CAPSULE PO SCH ×2 (14:56→21:32)
[2017-12-31] MEDS: KETOROLAC 15 MG/1 ML VIAL IV SCH ×4 (04:09→21:10)
[2017-12-31] MEDS: ENOXAPARIN 40 MG/0.4 ML SYRINGE SUBCUT SCH (06:47)
[2017-12-31] MEDS: DOCUSATE SODIUM 100 MG CAPSULE PO SCH ×2 (09:11→21:10)
[2017-12-31] MEDS: POLYETHYLENE GLYCOL POWDER 17 GM PACK PO SCH (09:11)
[2017-12-31] MEDS: LACTOBACILLUS ACIDOPHILUS/BULGARICUS CAPLET PO SCH ×2 (09:12→21:10)
[2017-12-31] MEDS: PANTOPRAZOLE 40 MG TABLET PO SCH (09:12)
[2017-12-31] MEDS: LEVOFLOXACIN 500 MG TABLET PO SCH (13:14)
[2017-12-31] MEDS: ONDANSETRON 4 MG/2 ML VIAL IV PRN (15:07)
[2017-12-31 15:50] LABS: ABG Base Excess 0.6 MMOL/L (-2.5-2.5); ABG HCO3 21.5 MMOL/L (20-26); ABG Oxygen Saturation 97.6 % (95-100); ABG PCO2 25.3 MM HG (35-48); ABG PH 7.548 (7.35-7.45); ABG PO2 94.6 MM HG (80-95); ABG TCO2 22.3 MMOL/L (23-27); Allen Test Positive
[2018-01-01] MEDS: KETOROLAC 15 MG/1 ML VIAL IV SCH ×2 (04:35→09:02)
[2018-01-01 06:11] LABS: Basophils % 0.5 % (0.0-0.8); Eosinophils # 0.2 10*3/uL (0.0-0.87); Eosinophils % 5.5 % (0.00-10.9); Hematocrit 37.6 VOL% (35.7-47.0); Hemoglobin 12.5 GM/DL (12.0-16.0); Immature Granulocytes % 0.5 %; Immature Granulocytes Absolute 0.02 #; Lymphocytes # 0.7 10*3/uL (1.4-4.0); Mean Corpuscular HGB Conc 33.2 GM/DL (32-36); Mean Corpuscular Hemoglobin 30 PG (27-34); Mean Platelet Volume 11.3 FL (9.6-12.0); Monocytes # 0.4 10*3/uL (0.11-0.8); Monocytes % 10.4 % (1.7-12.7); Neutrophils # 2.5 10*3/uL (1.4-7.4); Neutrophils % 66.1 % (38.7-73.9); Platelet Count 149 T/CUMM (130-400); Red Blood Count 4.18 MC/CUMM (3.8-5.5); Red Cell Distribution Width 12.5 % (9.3-17.3); White Blood Count 3.8 T/CUMM (4-12)
[2018-01-01 06:33] LABS: Eosinophils 2 % (0-10); Hypochromasia 1+; Lymphocytes 20 % (20-55); Platelet Estimate Decreased; Segmented Neutrophils 69 % (50-85); Total Cells Counted 100
[2018-01-01] MEDS: ENOXAPARIN 40 MG/0.4 ML SYRINGE SUBCUT SCH (06:38)
[2018-01-01 06:40] LABS: Calcium 8.1 MG/DL (8.5-10.1); Osmolality,Calculated 279.3 MOS/KG (273-304); Potassium 3.8 MMOL/L (3.5-5.1)
[2018-01-01 07:34] VITALS: BP 113/66
[2018-01-01] MEDS: LACTOBACILLUS ACIDOPHILUS/BULGARICUS CAPLET PO SCH (09:01)
[2018-01-01] MEDS: LEVOFLOXACIN 500 MG TABLET PO SCH (09:01)
[2018-01-01] MEDS: PANTOPRAZOLE 40 MG TABLET PO SCH (09:02)
[2018-01-01] MEDS: DOCUSATE SODIUM 100 MG CAPSULE PO SCH (09:02)
[2018-01-01] MEDS: ONDANSETRON 4 MG/2 ML VIAL IV PRN (09:02)
[2018-01-01] MEDS: POLYETHYLENE GLYCOL POWDER 17 GM PACK PO SCH (09:19)
== END 2018-01-01 12:05 | disposition home or self-care (01) | DRG 199 ==
LOC: EDBD → EDUNIT# → N.ED 10:44 → N.EDINP 12:18 → N.3E 13:40
PROVIDERS: ADMIT Surgery; ATTEND Surgery

== ENCOUNTER 2020-12-15 13:25 | Inpatient (IN) ==
[2020-12-15] MEDS ORDERED: SODIUM CHLORIDE 0.9% 1,000 ML IV STA ×2 (13:37→15:54)
[2020-12-15] MEDS ORDERED: ACETAMINOPHEN 500 MG TABLET PO STA (15:01)
[2020-12-15 15:24] LABS: Basophils % 0.2 % (0.0-0.8); Hemoglobin 12.3 GM/DL (12.0-16.0); Immature Granulocytes % 0.4 %; Immature Granulocytes Absolute 0.02 #; Lymphocytes # 0.7 10*3/uL (1.4-4.0); Lymphocytes % 12.5 % (21.3-54.2); Mean Corpuscular HGB Conc 33.2 GM/DL (32-36); Mean Corpuscular Volume 90.2 FL (87-102); Mean Platelet Volume 10.7 FL (9.6-12.0); Monocytes % 5.3 % (1.7-12.7); Neutrophils % 81.6 % (38.7-73.9); Platelet Count 124 T/CUMM (130-400); Red Cell Distribution Width 11.9 % (9.3-17.3); White Blood Count 5.5 T/CUMM (4-12)
[2020-12-15 15:35] LABS: Albumin 2.7 G/DL (3.4-5.0); Bilirubin,Total 0.5 MG/DL (0.2-1.0); Calcium 7.7 MG/DL (8.5-10.1); Osmolality,Calculated 271.8 MOS/KG (273-304); Total Protein 6.3 G/DL (6.4-8.3)
[2020-12-15] MEDS ORDERED: POTASSIUM CHLORIDE 20 MEQ TABLET PO STA (15:54)
[2020-12-15] MEDS ORDERED: POTASSIUM CHLORIDE 20 MEQ PACK ONE (15:55)
[2020-12-15 16:19] LABS: Bilirubin,Urine Negative (Negative); Blood, Urine Negative (Negative); Glucose,Urine (UA) Negative (Negative); Ketones,Urine Negative (Negative); Nitrite,Urine Negative (Negative); Protein,Urine Negative; Urine Appearance CLEAR (Clear); Urine Color Yellow (Yellow); Urine Specific Gravity 1.011 (1.001-1.035); Urine Urobilinogen < 2.0 EU/DL (0.2-1.0)
[2020-12-15] MEDS ORDERED: DIAZEPAM 2 MG TABLET PO PRN (16:47)
[2020-12-15] MEDS: SODIUM CHLORIDE 0.9% 1,000 ML IV SCH (17:39)
[2020-12-15] MEDS ORDERED: DIAZEPAM 2 MG TABLET PO SCH (21:00)
[2020-12-15] MEDS: ACETAMINOPHEN 325 MG TABLET PO PRN (21:30)
[2020-12-15] MEDS: LACTOBACILLUS ACIDOPHILUS/BULGARICUS CAPLET PO SCH (21:47)
[2020-12-15] MEDS: DOCUSATE SODIUM 100 MG CAPSULE PO SCH (21:48)
[2020-12-15] MEDS: MONTELUKAST 10 MG TABLET PO SCH (21:48)
[2020-12-15] MEDS: DIAZEPAM 2 MG TABLET PO SCH (21:48)
[2020-12-15] MEDS: SERTRALINE 50 MG TABLET PO SCH (21:48)
[2020-12-15] MEDS: BENZONATATE 100 MG CAPSULE PO PRN (23:49)
[2020-12-16] MEDS: ALBUTEROL INHALER 18 GM INH SCH ×4 (00:03→20:13)
[2020-12-16] MEDS: ONDANSETRON 4 MG/2 ML VIAL IV PRN ×2 (01:40→08:40)
[2020-12-16] MEDS: SODIUM CHLORIDE 0.9% 1,000 ML IV SCH ×2 (04:00→21:00)
[2020-12-16] MEDS: ACETAMINOPHEN 325 MG TABLET PO PRN ×3 (04:53→20:13)
[2020-12-16 05:42] LABS: Basophils % 0.2 % (0.0-0.8); Hematocrit 37.6 VOL% (35.7-47.0); Immature Granulocytes % 0.5 %; Immature Granulocytes Absolute 0.03 #; Lymphocytes # 0.6 10*3/uL (1.4-4.0); Lymphocytes % 9.6 % (21.3-54.2); Mean Corpuscular HGB Conc 31.9 GM/DL (32-36); Mean Corpuscular Volume 94.2 FL (87-102); Mean Platelet Volume 10.7 FL (9.6-12.0); Monocytes % 4.9 % (1.7-12.7); Neutrophils % 84.8 % (38.7-73.9); Platelet Count 137 T/CUMM (130-400); Red Blood Count 3.99 MC/CUMM (3.8-5.5); White Blood Count 6.1 T/CUMM (4-12)
[2020-12-16 06:02] LABS: Albumin 2.5 G/DL (3.4-5.0); Bilirubin,Total 0.8 MG/DL (0.2-1.0); Calcium 7.5 MG/DL (8.5-10.1); Osmolality,Calculated 272.7 MOS/KG (273-304); Potassium 3.2 MMOL/L (3.5-5.1); Total Protein 6.2 G/DL (6.4-8.3)
[2020-12-16] MEDS: EZETIMIBE 10 MG TABLET PO SCH (08:03)
[2020-12-16] MEDS: LACTOBACILLUS ACIDOPHILUS/BULGARICUS CAPLET PO SCH ×2 (08:04→20:14)
[2020-12-16] MEDS: CALCIUM (CARBONATE)/VITAMIN D 600 MG-400 UNIT TABLET PO SCH (08:04)
[2020-12-16] MEDS: PANTOPRAZOLE 40 MG TABLET PO SCH (08:04)
[2020-12-16] MEDS: DIAZEPAM 2 MG TABLET PO SCH ×2 (08:04→20:14)
[2020-12-16] MEDS: BENZONATATE 100 MG CAPSULE PO PRN ×2 (08:04→20:13)
[2020-12-16] MEDS ORDERED: MONTELUKAST 10 MG TABLET PO SCH ×2 (09:00→21:00)
[2020-12-16] MEDS: DOCUSATE SODIUM 100 MG CAPSULE PO SCH ×2 (09:41→20:14)
[2020-12-16] MEDS: ENOXAPARIN 40 MG/0.4 ML SYRINGE SUBCUT SCH (10:45)
[2020-12-16] MEDS: DEXAMETHASONE 4 MG TABLET PO SCH ×2 (10:45→20:14)
[2020-12-16] MEDS: AZITHROMYCIN 250 MG TABLET PO SCH (10:45)
[2020-12-16] MEDS: POTASSIUM CHLORIDE 20 MEQ TABLET PO PRN ×4 (14:24→20:13)
[2020-12-16] MEDS: MONTELUKAST 10 MG TABLET PO SCH (20:14)
[2020-12-16] MEDS: SERTRALINE 50 MG TABLET PO SCH (20:14)
[2020-12-16] MEDS ORDERED: SERTRALINE 50 MG TABLET PO SCH (21:00)
[2020-12-17] MEDS: ALBUTEROL INHALER 18 GM INH SCH ×4 (00:09→18:39)
[2020-12-17 01:33] LABS: Basophils % 0.2 % (0.0-0.8); Hematocrit 43.6 VOL% (35.7-47.0); Hemoglobin 13.7 GM/DL (12.0-16.0); Immature Granulocytes % 0.6 %; Immature Granulocytes Absolute 0.03 #; Lymphocytes # 0.5 10*3/uL (1.4-4.0); Lymphocytes % 8.9 % (21.3-54.2); Mean Corpuscular HGB Conc 31.4 GM/DL (32-36); Mean Corpuscular Volume 94.2 FL (87-102); Mean Platelet Volume 10.2 FL (9.6-12.0); Monocytes % 1.8 % (1.7-12.7); Neutrophils % 88.5 % (38.7-73.9); Platelet Count 176 T/CUMM (130-400); Red Blood Count 4.63 MC/CUMM (3.8-5.5); Red Cell Distribution Width 12.1 % (9.3-17.3)
[2020-12-17 01:52] LABS: Calcium 8.4 MG/DL (8.5-10.1); Osmolality,Calculated 274.8 MOS/KG (273-304); Potassium 3.7 MMOL/L (3.5-5.1)
[2020-12-17 09:09] LABS: Bilirubin,Urine Negative (Negative); Blood, Urine Negative (Negative); Glucose,Urine (UA) Negative (Negative); Ketones,Urine 20 mg/dL (Negative); Nitrite,Urine Negative (Negative); Protein,Urine 30 MG/DL; Urine Appearance CLEAR (Clear); Urine Color Yellow (Yellow); Urine Urobilinogen < 2.0 EU/DL (0.2-1.0)
[2020-12-17] MEDS: DEXAMETHASONE 4 MG TABLET PO SCH ×2 (10:40→21:14)
[2020-12-17] MEDS: DOCUSATE SODIUM 100 MG CAPSULE PO SCH ×2 (10:40→21:14)
[2020-12-17] MEDS: PANTOPRAZOLE 40 MG TABLET PO SCH (10:40)
[2020-12-17] MEDS: DIAZEPAM 2 MG TABLET PO SCH ×2 (10:40→21:14)
[2020-12-17] MEDS: EZETIMIBE 10 MG TABLET PO SCH (10:40)
[2020-12-17] MEDS: AZITHROMYCIN 250 MG TABLET PO SCH (10:40)
[2020-12-17] MEDS: LACTOBACILLUS ACIDOPHILUS/BULGARICUS CAPLET PO SCH ×2 (10:40→21:14)
[2020-12-17] MEDS: ENOXAPARIN 40 MG/0.4 ML SYRINGE SUBCUT SCH (10:40)
[2020-12-17] MEDS: CALCIUM (CARBONATE)/VITAMIN D 600 MG-400 UNIT TABLET PO SCH (10:40)
[2020-12-17] MEDS: SODIUM CHLORIDE 0.9% 1,000 ML IV SCH ×2 (10:56→20:15)
[2020-12-17] MEDS: BENZONATATE 100 MG CAPSULE PO PRN (16:16)
[2020-12-17] MEDS ORDERED: HYDROcodone/CHLORPHENIRAMINE ER 5 ML UDCUP PO PRN (18:56)
[2020-12-17] MEDS: MONTELUKAST 10 MG TABLET PO SCH (21:14)
[2020-12-17] MEDS: SERTRALINE 50 MG TABLET PO SCH (21:14)
[2020-12-18] MEDS: ALBUTEROL INHALER 18 GM INH SCH ×4 (00:29→19:47)
[2020-12-18] MEDS: BENZONATATE 100 MG CAPSULE PO PRN ×2 (03:00→21:08)
[2020-12-18] MEDS: SODIUM CHLORIDE 0.9% 1,000 ML IV SCH ×4 (06:48→21:46)
[2020-12-18] MEDS: ENOXAPARIN 40 MG/0.4 ML SYRINGE SUBCUT SCH (09:24)
[2020-12-18] MEDS: EZETIMIBE 10 MG TABLET PO SCH (09:24)
[2020-12-18] MEDS: CALCIUM (CARBONATE)/VITAMIN D 600 MG-400 UNIT TABLET PO SCH (09:24)
[2020-12-18] MEDS: DIAZEPAM 2 MG TABLET PO SCH ×2 (09:24→21:08)
[2020-12-18] MEDS: DEXAMETHASONE 4 MG TABLET PO SCH ×2 (09:24→21:08)
[2020-12-18] MEDS: DOCUSATE SODIUM 100 MG CAPSULE PO SCH ×2 (09:24→21:08)
[2020-12-18] MEDS: AZITHROMYCIN 250 MG TABLET PO SCH (09:24)
[2020-12-18] MEDS: LACTOBACILLUS ACIDOPHILUS/BULGARICUS CAPLET PO SCH ×2 (09:24→21:08)
[2020-12-18] MEDS: PANTOPRAZOLE 40 MG TABLET PO SCH (09:24)
[2020-12-18] MEDS: HYDROcodone/CHLORPHENIRAMINE ER 5 ML UDCUP PO PRN ×2 (13:59→21:08)
[2020-12-18] MEDS: MONTELUKAST 10 MG TABLET PO SCH (21:08)
[2020-12-18] MEDS: SERTRALINE 50 MG TABLET PO SCH (21:08)
[2020-12-19] MEDS: ALBUTEROL INHALER 18 GM INH SCH ×4 (00:35→21:56)
[2020-12-19 06:09] LABS: Basophils % 0.1 % (0.0-0.8); Hematocrit 34.9 VOL% (35.7-47.0); Hemoglobin 11.3 GM/DL (12.0-16.0); Immature Granulocytes Absolute 0.07 #; Lymphocytes # 0.6 10*3/uL (1.4-4.0); Lymphocytes % 8.9 % (21.3-54.2); Mean Corpuscular HGB Conc 32.4 GM/DL (32-36); Mean Corpuscular Volume 93.3 FL (87-102); Mean Platelet Volume 11.4 FL (9.6-12.0); Monocytes % 4.9 % (1.7-12.7); Neutrophils % 85.1 % (38.7-73.9); Platelet Count 161 T/CUMM (130-400); Red Blood Count 3.74 MC/CUMM (3.8-5.5); Red Cell Distribution Width 12.1 % (9.3-17.3); White Blood Count 6.8 T/CUMM (4-12)
[2020-12-19 06:29] LABS: Hypochromasia 1+; Microcytosis 1+; Platelet Estimate Adequate
[2020-12-19 06:32] LABS: Albumin 2.2 G/DL (3.4-5.0); Bilirubin,Total 0.8 MG/DL (0.2-1.0); Calcium 8.1 MG/DL (8.5-10.1); Osmolality,Calculated 278.5 MOS/KG (273-304); Potassium 3.8 MMOL/L (3.5-5.1); Total Protein 5.8 G/DL (6.4-8.3)
[2020-12-19] MEDS: ENOXAPARIN 40 MG/0.4 ML SYRINGE SUBCUT SCH (09:03)
[2020-12-19] MEDS: DEXAMETHASONE 4 MG TABLET PO SCH (09:03)
[2020-12-19] MEDS: DOCUSATE SODIUM 100 MG CAPSULE PO SCH ×2 (09:03→21:54)
[2020-12-19] MEDS: CALCIUM (CARBONATE)/VITAMIN D 600 MG-400 UNIT TABLET PO SCH (09:03)
[2020-12-19] MEDS: PANTOPRAZOLE 40 MG TABLET PO SCH (09:04)
[2020-12-19] MEDS: EZETIMIBE 10 MG TABLET PO SCH (09:04)
[2020-12-19] MEDS: DIAZEPAM 2 MG TABLET PO SCH (09:04)
[2020-12-19] MEDS: LACTOBACILLUS ACIDOPHILUS/BULGARICUS CAPLET PO SCH ×2 (09:04→21:54)
[2020-12-19] MEDS: AZITHROMYCIN 250 MG TABLET PO SCH (09:04)
[2020-12-19 09:47] LABS: Calcium 8.2 MG/DL (8.5-10.1); Osmolality,Calculated 282.3 MOS/KG (273-304); Potassium 3.9 MMOL/L (3.5-5.1)
[2020-12-19] MEDS ORDERED: cefTRIAXone 1,000 MG in SYRINGE 1 EACH IV ONE (12:00)
[2020-12-19] MEDS: SERTRALINE 50 MG TABLET PO SCH (21:54)
[2020-12-19] MEDS: BENZONATATE 100 MG CAPSULE PO PRN (21:54)
[2020-12-19] MEDS: MONTELUKAST 10 MG TABLET PO SCH (21:54)
[2020-12-19] MEDS: SODIUM CHLORIDE 0.9% 1,000 ML IV SCH (23:14)
[2020-12-20] MEDS: ALBUTEROL INHALER 18 GM INH SCH ×2 (01:02→06:26)
[2020-12-20] MEDS: CALCIUM (CARBONATE)/VITAMIN D 600 MG-400 UNIT TABLET PO SCH (08:45)
[2020-12-20] MEDS: EZETIMIBE 10 MG TABLET PO SCH (08:45)
[2020-12-20] MEDS: AZITHROMYCIN 250 MG TABLET PO SCH (08:45)
[2020-12-20] MEDS: LACTOBACILLUS ACIDOPHILUS/BULGARICUS CAPLET PO SCH (08:45)
[2020-12-20] MEDS: DOCUSATE SODIUM 100 MG CAPSULE PO SCH (08:46)
[2020-12-20] MEDS: ENOXAPARIN 40 MG/0.4 ML SYRINGE SUBCUT SCH (08:46)
[2020-12-20] MEDS: PANTOPRAZOLE 40 MG TABLET PO SCH (08:46)
[2020-12-20] MEDS ORDERED: DEXAMETHASONE 4 MG TABLET PO SCH (09:00)
[2020-12-20 11:47] VITALS: BP 147/80
== END 2020-12-20 12:16 | disposition home health service (06) | DRG 177 ==
LOC: EDBD → EDUNIT# → N.2E 13:25 → N.ED 13:25 → N.2E 17:35
PROVIDERS: ADMIT Family Medicine; ATTEND Family Medicine